=== PATIENT | male | born 1955 | race American Indian/Alaskan Native ===

== ENCOUNTER 2019-01-17 08:53 | Emergency (ER) | payer SELFPAY ==
[2019-01-17] MEDS ORDERED: TORADOL IM ONE (10:05)
[2019-01-17] MEDS ORDERED: SOLU-Medrol IM ONE (10:05)
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
--- NOTE | 2019-01-17 10:54 | XRay Report ---
RIGHT FOOT, 3 views: History: Pain and swelling. Normal bone mineralization. Mild osteoarthritic changes are identified at the first metatarsophalangeal joint. There is no evidence for fracture, bone lesion or erosive joint pathology. Small plantar spur is noted. IMPRESSION: No acute process. Mild osteoarthritic changes. Small plantar spur.
[2019-01-17 12:35] LABS: INR 1.25 (0.87-1.13)
[2019-01-17 12:36] LABS: Partial Thromboplastin Time 33.3 Sec. (24.2-36.6)
[2019-01-17 13:16] LABS: Basophils # (Auto) 0.1 K/mm3 (0.0-0.1); Basophils % (Auto) 0.9 % (0.0-1.8); Eosinophils # (Auto) 0.2 K/mm3 (0.0-0.4); Eosinophils % (Auto) 1.8 % (0.0-4.3); Hematocrit 30.4 % (35.5-45.6); Hemoglobin 9.2 gm/dl (11.8-15.2); Lymphocytes # (Auto) 2.7 K/mm3 (1.2-5.4); Lymphocytes % (Auto) 30.8 % (13.4-35.0); Mean Corpuscular HGB Conc 30 % (32-34); Mean Corpuscular Volume 70 fl (84-94); Monocytes # (Auto) 0.7 K/mm3 (0.0-0.8); Monocytes % (Auto) 8.5 % (0.0-7.3); Platelet Count 442 K/mm3 (140-440); Red Blood Count 4.35 M/mm3 (3.65-5.03)
[2019-01-17 13:19] LABS: Albumin 3.1 g/dL (3.9-5)
[2019-01-17 13:23] LABS: Calcium 5.5 mg/dL (8.4-10.2)
--- NOTE | 2019-01-17 13:28 | XRay Report ---
PA and lateral chest: SOB. The cardiac contour is within normal limits for positioning. The aorta may be slightly tortuous. There is mild vascular congestion and mild blunting of the right costophrenic angle. No nodules or consolidations identified. The pleural appears to be somewhat thickened along the upper right chest wall and to a lesser extent the left upper chest wall. The bony structures are not unremarkable for age. No prior exams for comparison. Impression: The findings raise suspicion of mild congestive changes. The pleural changes are nonspecific and most likely unrelated.
[2019-01-17 13:38] LABS: Chol/HDL Ratio 3.66 %
[2019-01-17 14:06] VITALS: BP 153/113
== END 2019-01-17 14:08 | disposition left against medical advice (07) ==
LOC: ED 08:53
DX: M72.2 Plantar fascial fibromatosis (principal); M77.9 Enthesopathy, unspecified; E83.51 Hypocalcemia; I10 Essential (primary) hypertension; M19.90 Unspecified osteoarthritis, unspecified site; R74.8 Abnormal levels of other serum enzymes; N19 Unspecified kidney failure; X58.XXXA Exposure to other specified factors, initial encounter; Y93.89 Activity, other specified; Y92.89 Other specified places as the place of occurrence of the external cause; Y99.8 Other external cause status
CPT/HCPCS: 36415; 71046; 73630; 80053; 80061; 83880; 84484; 85025; 85610; 85730; 93005; 93010; 96372; 99283; J1885; J2930

== ENCOUNTER 2019-01-21 08:51 | Inpatient (IN) | payer OTHER ==
[2019-01-21] MEDS ORDERED: LASIX IV ONE (10:27)
[2019-01-21] MEDS ORDERED: BABY ASPIRIN PO ONE (10:29)
--- NOTE | 2019-01-21 10:29 | Emergency Department Report ---
ED General Adult HPI - General Chief complaint: Dyspnea/Respdistress Stated complaint: MEDICAL CLEARANCE Time Seen by Provider: 01/21/19 10:20 Source: patient, RN notes reviewed, old records reviewed Mode of arrival: Wheelchair Limitations: No Limitations - History of Present Illness Initial comments: This is a 63-year-old gentleman. The patient is not known to this provider previously. The patient states he does not have a primary care doctor. The patient reportedly has a history of hypertension. 4 days ago, the patient presented to the emergency room with a complaint of bilateral plantar foot pain, and on review of systems, endorsed shortness of breath. He was found to have presumably chronic renal insufficiency, with evidence of congestive heart failure, microcytic anemia, likely anemia of chronic disease, and hypocalcemia. Hospitalization and admission was recommended at that time, however the patient declined and signed out AGAINST MEDICAL ADVICE. The patient now presents with a statements that he is ready to be admitted. He denies headache, neck pain, chest pain. He endorses shortness of breath, lower extremity swelling, a bdominal distention, unintentional weight gain. He has chronic bilateral plantar foot pain. His symptoms have been going on for weeks to months, but pain increases with palpation, range of motion, and it decreases with rest. Shortness of breath decreases with rest, sitting upwards, and increases with laying flat, and physical exertion. The patient denies DVT, pulmonary embolus risk factors. He denies hematemesis and bright red blood per rectum. He endorses lower extremity swelling. -: Gradual, week(s), month(s) Location: left, right, lower extremity Radiation: non-radiation Quality: aching Consistency: other Improves with: other Worsens with: other Associated Symptoms: shortness of breath - Related Data Home Medications Medication Instructions Recorded Confirmed Last Taken AtorvaSTATin [Lipitor] 10 mg PO DAILY 01/21/19 01/21/19 Unknown hydroCHLOROthiazide [HCTZ] 25 mg PO QDAY 01/21/19 01/21/19 Unknown metFORMIN [Glucophage] 500 mg PO QDAY 01/21/19 01/21/19 Unknown Previous Rx's Medication Instructions Recorded Last Taken Type traMADol [Ultram] 50 mg PO Q6HR PRN #7 tablet 01/17/19 Unknown Rx Allergies Allergy/AdvReac Type Severity Reaction Status Date / Time No Known Allergies Allergy Verified 01/21/19 09:02 ED Review of Systems ROS: Stated complaint: MEDICAL CLEARANCE Other details as noted in HPI Constitutional: denies: fever Eyes: denies: eye discharge ENT: congestion Respiratory: shortness of breath Cardiovascular: dyspnea on exertion, edema Gastrointestinal: denies: nausea Genitourinary: denies: hematuria Musculoskeletal: arthralgia, myalgia Skin: denies: lesions Neurological: denies: headache Hematological/Lymphatic: denies: easy bleeding ED Past Medical Hx - Past Medical History Previous Medical History?: Yes Hx Hypertension: Yes - Social History Smoking Status: Never Smoker Substance Use Type: None - Medications Home Medications: Home Medications Medication Instructions Recorded Confirmed Last Taken Type traMADol [Ultram] 50 mg PO Q6HR PRN #7 tablet 01/17/19 01/21/19 Unknown Rx AtorvaSTATin [Lipitor] 10 mg PO DAILY 01/21/19 01/21/19 Unknown History hydroCHLOROthiazide [HCTZ] 25 mg PO QDAY 01/21/19 01/21/19 Unknown History metFORMIN [Glucophage] 500 mg PO QDAY 01/21/19 01/21/19 Unknown History ED Physical Exam - General Limitations: Physical Limitation General appearance: alert, obese - Head Head exam: Present: atraumatic, normocephalic - Eye Eye exam: Present: normal appearance, EOMI. Absent: nystagmus - ENT ENT exam: Present: normal exam, normal orophraynx, mucous membranes moist - Neck Neck exam: Present: normal inspection, full ROM. Absent: tenderness, meningismus - Respiratory Respiratory exam: Present: decreased breath sounds. Absent: respiratory distress, wheezes, stridor - Cardiovascular Cardiovascular Exam: Present: normal rhythm, normal heart sounds, JVD. Absent: bradycardia, systolic murmur, diastolic murmur, rubs, gallop - GI/Abdominal GI/Abdominal exam: Present: soft, distended. Absent: tenderness, guarding, rebound, rigid, pulsatile mass - Rectal Rectal exam: Present: deferred - Extremities Exam Extremities exam: Present: normal inspection, full ROM, pedal edema (3+ edema in the bilateral lower gonzales), other (2+ pulses noted in the bilateral upper, lower extremities. Compartments soft. No long bony tenderness. The pelvis is stable.). Absent: calf tenderness - Back Exam Back exam: Present: normal inspection, full ROM. Absent: tenderness, CVA tenderness (R), CVA tenderness (L), paraspinal tenderness, vertebral tenderness - Neurological Exam Neurological exam: Present: alert, other (Extraocular movements intact. Tongue midline. No facial droop. Facial sensation intact to light touch in the V1, V2, V3 distribution bilaterally. 5 and 5 strength in 4 extremities.. Sensation is intact to light touch in 4 extremities.). Absent: motor sensory deficit - Psychiatric Psychiatric exam: Present: normal mood - Skin Skin exam: Present: warm, dry, intact, normal color. Absent: rash ED Course Vital Signs 01/21/19 01/21/19 01/21/19 09:03 11:06 11:28 Temperature 98.5 F Pulse Rate 101 H Respiratory 22 18 14 Rate Blood Pressure 155/114 Blood Pressure [Left] O2 Sat by Pulse 95 98 98 Oximetry 01/21/19 01/21/19 01/21/19 11:30 11:45 12:01 Temperature Pulse Rate 94 H 93 H Respiratory 12 11 L 20 Rate Blood Pressure 98/64 98/64 217/135 Blood Pressure [Left] O2 Sat by Pulse 99 97 100 Oximetry 01/21/19 01/21/19 01/21/19 12:15 12:30 12:45 Temperature Pulse Rate 97 H 95 H 94 H Respiratory 14 13 12 Rate Blood Pressure 217/135 151/114 151/114 Blood Pressure [Left] O2 Sat by Pulse 99 100 99 Oximetry 01/21/19 01/21/19 01/21/19 13:00 13:15 13:30 Temperature Pulse Rate 93 H 97 H 98 H Respiratory 11 L 13 12 Rate Blood Pressure 150/111 150/111 163/108 Blood Pressure [Left] O2 Sat by Pulse 99 99 99 Oximetry 01/21/19 01/21/19 01/21/19 13:45 14:00 14:11 Temperature Pulse Rate 93 H 99 H Respiratory 14 13 21 Rate Blood Pressure 163/108 166/111 166/111 Blood Pressure [Left] O2 Sat by Pulse 100 99 96 Oximetry 01/21/19 01/21/19 01/21/19 14:21 14:30 14:41 Temperature Pulse Rate 91 H 94 H 92 H Respiratory 11 L 12 11 L Rate Blood Pressure 166/111 168/104 168/104 Blood Pressure [Left] O2 Sat by Pulse 100 100 100 Oximetry 01/21/19 01/21/1901/21/19 14:51 15:00 15:02 Temperature Pulse Rate 88 91 H 88 Respiratory 12 14 18 Rate Blood Pressure 168/104 186/128 Blood Pressure 175/88 [Left] O2 Sat by Pulse 100 99 100 Oximetry 01/21/19 01/21/19 15:05 15:25 Temperature Pulse Rate 88 Respiratory 18 Rate Blood Pressure 186/128 Blood Pressure 175/79 [Left] O2 Sat by Pulse 100 Oximetry - Reevaluation(s) Reevaluation #1: 01/21/19 11:04 When calcium is corrected for hypoalbuminemia, it is found to be 6.6, this is likely secondary to secondary hyperparathyroidism, likely secondary to renal insufficiency. Calcium supplementation has been ordered. We will defer further electrolyte management and inpatient team. Lab Results 01/21/19 01/21/19 01/21/19 Range/Units 10:02 10:02 10:02 WBC 8.4 (4.5-11.0) K/mm3 RBC 4.29 (3.65-5.03) M/mm3 Hgb 9.1 L (11.8-15.2) gm/dl Hct 29.7 L (35.5-45.6) % MCV 69 L (84-94) fl MCH 21 L (28-32) pg MCHC 31 L (32-34) % RDW 16.8 H (13.2-15.2) % Plt Count 470 H (140-440) K/mm3 Lymph % (Auto) 29.0 (13.4-35.0) % [place] % (Auto) 8.0 H (0.0-7.3) % Eos % (Auto) 2.0 (0.0-4.3) % Baso % (Auto) 2.0 H (0.0-1.8) % Lymph # 2.4 (1.2-5.4) K/mm3 [place] # 0.7 (0.0-0.8) K/mm3 Eos # 0.2 (0.0-0.4) K/mm3 Baso # 0.2 H (0.0-0.1) K/mm3 Seg Neutrophils % 59.0 (40.0-70.0) % Seg Neutrophils # 4.9 (1.8-7.7) K/mm3 PT 16.4 H (12.2-14.9) Sec. INR 1.36 H (0.87-1.13) APTT 30.6 (24.2-36.6) Sec. Sodium 137 (137-145) mmol/L Potassium 5.1 H (3.6-5.0) mmol/L Chloride 98.5 (98-107) mmol/L Carbon Dioxide 20 L (22-30) mmol/L Anion Gap 24 mmol/L BUN 68 H (9-20) mg/dL Creatinine 7.6 H (0.8-1.5) mg/dL Estimated GFR 9 ml/min BUN/Creatinine Ratio 9 % Glucose 101 H (75-100) mg/dL Calcium 5.7 L* (8.4-10.2) mg/dL Magnesium 1.80 (1.7-2.3) mg/dL Total Bilirubin 0.30 (0.1-1.2) mg/dL AST 77 H (5-40) units/L ALT 62 H (7-56) units/L Alkaline Phosphatase 101 (35-129) units/L Total Protein 7.6 (6.3-8.2) g/dL Albumin 2.8 L (3.9-5) g/dL Albumin/Globulin Ratio 0.6 % 01/21/19 19:19 ED Medical Decision Making - Lab Data Result diagrams: 01/21/19 10:02 01/21/19 10:02 Vital Signs 01/21/19 09:03 Temperature 98.5 F Pulse Rate 101 H Respiratory 22 Rate Blood Pressure 155/114 O2 Sat by Pulse 95 Oximetry Lab Results 01/21/19 01/21/19 Range/Units 10:02 10:02 WBC 8.4 (4.5-11.0) K/mm3 RBC 4.29 (3.65-5.03) M/mm3 Hgb 9.1 L (11.8-15.2) gm/dl Hct 29.7 L (35.5-45.6) % MCV 69 L (84-94) fl MCH 21 L (28-32) pg MCHC 31 L (32-34) % RDW 16.8 H (13.2-15.2) % Plt Count 470 H (140-440) K/mm3 Lymph % (Auto) 29.0 (13.4-35.0) % [place] % (Auto) 8.0 H (0.0-7.3) % Eos % (Auto) 2.0 (0.0-4.3) % Baso % (Auto) 2.0 H (0.0-1.8) % Lymph # 2.4 (1.2-5.4) K/mm3 [place] # 0.7 (0.0-0.8) K/mm3 Eos # 0.2 (0.0-0.4) K/mm3 Baso # 0.2 H (0.0-0.1) K/mm3 Seg Neutrophils % 59.0 (40.0-70.0) % Seg Neutrophils # 4.9 (1.8-7.7) K/mm3 PT 16.4 H (12.2-14.9) Sec. INR 1.36 H (0.87-1.13) APTT 30.6 (24.2-36.6) Sec. - EKG Data -: EKG Interpreted by Id EKG shows normal: sinus rhythm Rate: normal - EKG Data 01/21/19 10:59 This is a sinus rhythm, 95 bpm, normal axis, QTC prolonged, atrial enlargement, poor R progression, no endorsement of chest pain, this is an abnormal EKG, his EKG is not consistent with ST myocardial infarction. EKG today appears to be grossly unchanged from prior EKG from 01/17/2019, with the exception of resolved left axis deviation. - Radiology Data Radiology results: report reviewed, image reviewed Print Report Referring Physician: COMFORT CORDERO Patient Name: DEVI SEVILLA Date of : 1955 Sex: Male Report Date: 2019-01-21 Report Status: Finalized Findings [facility] [address] [place] [address] XRay Report Signed Patient: DEVI SEVILLA MR#: [id number] : 1955 Acct:[id number] Age/Sex: 63 / M ADM Date: 01/21/19 Loc: ED Attending Dr: Ordering Physician: COMFORT CORDERO MD Date of Service: 01/21/19 Procedure(s): XR chest 1V ap Accession Number(s): [id number] cc: COMFORT CORDERO MD Fluoro Time In Minutes: AP CHEST: HISTORY: Dyspnea Moderate cardiomegaly, moderate pulmonary edema and small bilateral pleural effusions are suspected. The lungs are grossly clear although there is poor visualization of the left lower lobe. No pneumothorax. IMPRESSION: CHF. Transcribed By: TTR Dictated By: BASIM LOVING JR, MD Electronically Authenticated By: BASIM LOVING JR, MD Signed Date/Time: 01/21/191034 DD/ 34 TD/TT: 01/21/19 1035 - Medical Decision Making Differential diagnosis, including not limited to: Pulmonary hypertension, right- sided heart failure, left-sided heart failure, cardiorenal syndrome, obstructive sleep apnea, renal insufficiency Assessment and plan: 63-year-old gentleman who reports she does not have a primary care doctor, who appears to be morbidly obese, most likely has undiagnosed obstructive sleep apnea, undiagnosed pulmonary hypertension, presenting with physical exam findings and laboratory findings suggestive of decompensated cardiorenal syndrome. He denies DVT, pulmonary embolus risk factors, and he is low risk by well's criteria. He does appear to be comfortable on room oxygen. We have recommended admission for diuresis and medical optimization. He is amenable to this plan of care. He reports that he produces urine. He will be given high-dose Lasix. Basic metabolic panel is pending at this time. Elevated troponin from prior visit is reviewed and appreciated, this is likely a type II troponin leak, as he has not endorsed any chest pain, this is likely due to poorly managed renal insufficiency, as well as presumed congestive heart failure. The hospital physician, Dr. Joiner, will admit the patient to the medical service. We have requested a renal consultation, and my nephrology colleague, Dr. Randhawa, has graciously agreed to follow in consultation. Critical Care Time: Yes Critical care time in (mins) excluding proc time.: 35 Critical care attestation.: If time is entered above; I have spent that time in minutes in the direct care of this critically ill patient, excluding procedure time. ED Disposition Clinical Impression: Cardiorenal syndrome with renal failure Disposition: OP ADMIT IP TO THIS HOSP Is pt being admited?: Yes Does the pt Need Aspirin: Yes Condition: Stable
[2019-01-21 10:41] LABS: Basophils # (Auto) 0.2 K/mm3 (0.0-0.1); Eosinophils # (Auto) 0.2 K/mm3 (0.0-0.4); Hematocrit 29.7 % (35.5-45.6); Hemoglobin 9.1 gm/dl (11.8-15.2); Lymphocytes # (Auto) 2.4 K/mm3 (1.2-5.4); Mean Corpuscular HGB Conc 31 % (32-34); Monocytes # (Auto) 0.7 K/mm3 (0.0-0.8); Platelet Count 470 K/mm3 (140-440); Red Blood Count 4.29 M/mm3 (3.65-5.03); Red Cell Distribution Width 16.8 % (13.2-15.2)
--- NOTE | 2019-01-21 10:41 | XRay Report ---
AP CHEST: HISTORY: Dyspnea Moderate cardiomegaly, moderate pulmonary edema and small bilateral pleural effusions are suspected. The lungs are grossly clear although there is poor visualization of the left lower lobe. No pneumothorax. IMPRESSION: CHF.
[2019-01-21 10:46] LABS: Mean Corpuscular Volume 69 fl (84-94)
[2019-01-21 10:52] LABS: INR 1.36 (0.87-1.13); Partial Thromboplastin Time 30.6 Sec. (24.2-36.6)
[2019-01-21 10:59] LABS: Albumin 2.8 g/dL (3.9-5)
[2019-01-21 11:03] LABS: Calcium 5.7 mg/dL (8.4-10.2)
[2019-01-21] MEDS ORDERED: CALCIUM GLUCONATE 1,000 MG in NACL 0.9% 100 ML IV ONE (11:30)
[2019-01-21] MEDS ORDERED: TUMS PO ONE (11:30)
[2019-01-21] MEDS ORDERED: SODIUM CHLORIDE FLUSH SYRINGE 10 ML IV PRN (12:52)
[2019-01-21] MEDS ORDERED: TYLENOL PO PRN (12:52)
[2019-01-21] MEDS ORDERED: ZOFRAN IV PRN (12:52)
--- NOTE | 2019-01-21 12:57 | History and Physical Report ---
History of Present Illness Date of admission: 01/21/19 11:05 Chief complaint: I am swelling up all over History of present illness: 63-year-old man who presents to the hospital with bilateral plantar foot pain. Shortness of breath he's complaining of lower extremity swelling, abdominal dis tention, unintentional weight gain, Past medical history hypertension, chronic kidney disease, CHF, microcytic anemia, hypocalcemia Past surgical history; denies major surgeries Social history never smoker Family history hypertension and kidney disease Medications and Allergies Allergies Allergy/AdvReac Type Severity Reaction Status Date / Time No Known Allergies Allergy Verified 01/21/19 09:02 Home Medications Medication Instructions Recorded Confirmed Last Taken Type traMADol [Ultram 50 MG tab] 50 mg PO Q6HR PRN #7 tablet 01/17/19 01/21/19 Unknown Rx AtorvaSTATin [Lipitor] 10 mg PO DAILY 01/21/19 01/21/19 Unknown History Aspirin [Aspirin BABY CHEW TAB] 81 mg PO QDAY #30 tab.chew 01/28/19 Unknown Rx Calcitriol [Rocaltrol] 1 mcg PO QDAY #30 capsule 01/28/19 Unknown Rx Calcium Carbonate [Tums 500MG CHEW] 1,000 mg PO TID #90 tablet 01/28/19 Unknown Rx Carvedilol [Coreg] 6.25 mg PO BID #60 tablet 01/28/19 Unknown Rx Pantoprazole [Protonix TAB] 40 mg PO QDAY #30 tablet 01/28/19 Unknown Rx glipiZIDE [Glucotrol] 5 mg PO QDAY #30 tablet 02/04/19 Unknown Rx Review of Systems All systems: negative Constitutional: weight gain Ears, nose, mouth and throat: no ear pain Cardiovascular: orthopnea Respiratory: no cough Gastrointestinal: no abdominal pain Genitourinary Male: no dysuria Rectal: no pain Musculoskeletal: no neck stiffness Integumentary: no rash Neurological: no head injury Psychiatric: no anxiety Endocrine: no cold intolerance Hematologic/Lymphatic: no easy bruising Allergic/Immunologic: no urticaria Exam - Constitutional Vitals: Temp Pulse Resp BP Pulse Ox 98.5 F 101 H 22 155/114 95 01/21/19 09:03 01/21/19 09:03 01/21/19 09:03 01/21/19 09:03 01/21/19 09:03 General appearance: Present: no acute distress, well-nourished - EENT Eyes: Present: PERRL ENT: hearing intact, clear oral mucosa - Neck Neck: Present: supple, normal ROM - Respiratory Respiratory effort: normal Respiratory: bilateral: diminished, rales (1) - Cardiovascular Heart Sounds: Present: S1 & S2. Absent: rub, click - Extremities Extremities: pulses symmetrical Extremity abnormal: edema Peripheral Pulses: within normal limits - Abdominal General gastrointestinal: Present: soft, non-tender, non-distended, normal bowel sounds Male genitourinary: Present: normal - Integumentary Integumentary: Present: clear, warm, dry - Musculoskeletal Musculoskeletal: gait normal, strength equal bilaterally - Psychiatric Psychiatric: appropriate mood/affect, intact judgment & insight - Neurologic Neurologic: CNII-XII intact, moves all extremities Results - Labs CBC & Chem 7: 02/02/19 04:51 02/02/19 04:51 Labs: Laboratory Last Values WBC 8.4 K/mm3 (4.5-11.0) 01/21/19 10:02 RBC 4.29 M/mm3 (3.65-5.03) 01/21/19 10:02 Hgb 9.1 gm/dl (11.8-15.2) L 01/21/19 10:02 Hct 29.7 % (35.5-45.6) L 01/21/19 10:02 MCV 69 fl (84-94) L 01/21/19 10:02 MCH 21 pg (28-32) L 01/21/19 10:02 MCHC 31 % (32-34) L 01/21/19 10:02 RDW 16.8 % (13.2-15.2) H 01/21/19 10:02 Plt Count 470 K/mm3 (140-440) H 01/21/19 10:02 Lymph % (Auto) 29.0 % (13.4-35.0) 01/21/19 10:02 [place] % (Auto) 8.0 % (0.0-7.3) H 01/21/19 10:02 Eos % (Auto) 2.0 % (0.0-4.3) 01/21/19 10:02 Baso % (Auto) 2.0 % (0.0-1.8) H 01/21/19 10:02 Lymph # 2.4 K/mm3 (1.2-5.4) 01/21/19 10:02 [place] # 0.7 K/mm3 (0.0-0.8) 01/21/19 10:02 Eos # 0.2 K/mm3 (0.0-0.4) 01/21/19 10:02 Baso # 0.2 K/mm3 (0.0-0.1) H 01/21/19 10:02 Seg Neutrophils % 59.0 % (40.0-70.0) 01/21/19 10:02 Seg Neutrophils # 4.9 K/mm3 (1.8-7.7) 01/21/19 10:02 PT 16.4 Sec. (12.2-14.9) H 01/21/19 10:02 INR 1.36 (0.87-1.13) H 01/21/19 10:02 APTT 30.6 Sec. (24.2-36.6) 01/21/19 10:02 Sodium 137 mmol/L (137-145) 01/21/19 10:02 Potassium 5.1 mmol/L (3.6-5.0) H 01/21/19 10:02 Chloride 98.5 mmol/L (98-107) 01/21/19 10:02 Carbon Dioxide 20 mmol/L (22-30) L 01/21/19 10:02 24 mmol/L 01/21/19 10:02 BUN 68 mg/dL (9-20) H 01/21/19 10:02 7.6 mg/dL (0.8-1.5) H 01/21/19 10:02 Estimated GFR 9 ml/min 01/21/19 10:02 9 % 01/21/19 10:02 Glucose 101 mg/dL (75-100) H 01/21/19 10:02 Calcium 5.7 mg/dL (8.4-10.2) L* 01/21/19 10:02 Magnesium 1.80 mg/dL (1.7-2.3) 01/21/19 10:02 0.30 mg/dL (0.1-1.2) 01/21/19 10:02 AST 77 units/L (5-40) H 01/21/19 10:02 ALT 62 units/L (7-56) H 01/21/19 10:02 101 units/L (35-129) 01/21/19 10:02 0.092 ng/mL (0.00-0.029) H 01/21/19 10:02 7.6 g/dL (6.3-8.2) 01/21/19 10:02 2.8 g/dL (3.9-5) L 01/21/19 10:02 0.6 % 01/21/19 10:02 - Imaging and Cardiology Chest x-ray: image reviewed (CHF) Assessment and Plan Assessment and plan: 63-year-old man who presents with swelling all over and unintentional weight gain CHF -likely cardiorenal syndrome -strict I&O, daily weights, IV diuretics, optimize meds, cardiology consult, obtain echo htn cont BP meds hld cont statin LORRI/hypocalcemia mgt per nephrology, replace ca, hold metformin type 2 Dm ssi dvt ppx- heparin
[2019-01-21] MEDS ORDERED: D50W (25GM) Syringe IV PRN (13:10)
[2019-01-21 13:12] LABS: Bacteria,Urine 1+ /HPF (Negative); Bilirubin,Urine NEG (Negative); Blood,Urine SM (Negative); Color,Urine Yellow (Yellow); Mucus,Urine FEW /HPF; Urobilinogen,Urine < 2.0 mg/dL (<2.0)
[2019-01-21 13:13] LABS: Protein,Urine >500 mg/dL (Negative)
[2019-01-21 13:17] LABS: Creatinine,Urine 76.7 mg/dL (0.1-20.0)
[2019-01-21] MEDS: LASIX IV SCH (17:23)
[2019-01-21] MEDS: HumaLOG SUB-Q SCH ×2 (17:27→23:00)
--- NOTE | 2019-01-21 19:33 | Consultation ---
History of Present Illness - Reason for Consult chronic renal failure - History of Present Illness 63-year-old gentleman with history of hypertension presenting with complaints of shortness of breath reports is usually used to live in [place] moved to [place] denies benign we will previous chronic kidney disease denies any family history of chronic kidney disease denies any nausea vomiting abdominal pain denies any sick contacts does have some orthopnea has some lower extremity edema. Was seen in the emergency room a few days ago and if that is medical and left against medical advice Medications and Allergies Allergies Allergy/AdvReac Type Severity Reaction Status Date / Time No Known Allergies Allergy Verified 01/21/19 09:02 Home Medications Medication Instructions Recorded Confirmed Last Taken Type traMADol [Ultram] 50 mg PO Q6HR PRN #7 tablet 01/17/19 01/21/19 Unknown Rx AtorvaSTATin [Lipitor] 10 mg PO DAILY 01/21/19 01/21/19 Unknown History hydroCHLOROthiazide [HCTZ] 25 mg PO QDAY 01/21/19 01/21/19 Unknown History metFORMIN [Glucophage] 500 mg PO QDAY 01/21/19 01/21/19 Unknown History Active Meds: Active Medications Acetaminophen (Tylenol) 650 mg PO Q4H PRN PRN Reason: Pain MILD(1-3)/Fever >100.5/MANE Atorvastatin Calcium (Lipitor) 10 mg PO DAILY [facility] Dextrose (D50w (25gm) Syringe) 50 ml IV PRN PRN PRN Reason: Hypoglycemia Furosemide (Lasix) 80 mg IV BID@0600,1800 [facility] Last Admin: 01/21/19 17:23 Dose: 80 mg Documented by: Hydralazine HCl (Apresoline) 10 mg IV Q4HR PRN PRN Reason: BP >160/100 Insulin Human Lispro (Humalog) 0 unit SUB-Q ACHS [facility]; Protocol Last Admin: 01/21/19 17:27 Dose: Not Given Documented by: Ondansetron HCl (Zofran) 4 mg IV Q8H PRN PRN Reason: Nausea And Vomiting Sodium Chloride (Sodium Chloride Flush Syringe 10 Ml) 10 ml IV BID [facility] Sodium Chloride (Sodium Chloride Flush Syringe 10 Ml) 10 ml IV PRN PRN PRN Reason: LINE FLUSH Tramadol HCl (Ultram) 50 mg PO Q6HR PRN PRN Reason: Pain Review of Systems Constitutional: weight gain Ears, nose, mouth and throat: no deferred, no ear pain Cardiovascular: orthopnea, dyspnea on exertion, paroxysmal nocturnal dyspnea, no chest pain Respiratory: no cough, no cough with sputum Gastrointestinal: no abdominal pain, no nausea, no vomiting, no hematochezia, no loss of appetite Genitourinary Male: no dysuria, no hematuria Rectal: no pain, no incontinence Psychiatric: no anxiety, no memory loss Endocrine: no cold intolerance, no heat intolerance Exam - Vital Signs Vital signs: Vital Signs Temp Pulse Resp BP Pulse Ox 98.5 F 101 H 22 155/114 95 01/21/19 09:03 01/21/19 09:03 01/21/19 09:03 01/21/19 09:03 01/21/19 09:03 - General Appearance General appearance: well-developed, well-nourished EENT: ATNC, PERRL, mucous membranes moist Neck: Present: neck supple Respiratory: Ronchi, Decreased Breath Sounds Heart: regular, S1S2 Gastrointestinal: Present: normal, normoactive bowel sounds Integumentary: no rash Neurologic: alert and oriented x3, CN 3-12 intact Musculoskeletal: Absent: deferred Psychiatric: mood/affect appropriate Results - Lab Results 01/21/19 10:02 01/21/19 10:02 Most recent lab results Calcium 5.7 mg/dL (8.4-10.2) L* 01/21/19 10:02 Magnesium 1.80 mg/dL (1.7-2.3) 01/21/19 10:02 76.7 mg/dL (0.1-20.0) H 01/21/19 13:00 81 mmol/L 01/21/19 13:00 - Image Kidney/bladder ultrasound: other (I reviewed chest x-ray with bilateral diffuse opacities, stable medical condition) Assessment and Plan - Patient Problems (1) Acute on chronic renal failure Current Visit: Yes Status: Acute Plan to address problem: Acute on chronic renal failure versus progressive chronic kidney disease We'll obtain renal ultrasound Has volume overload we'll initiate diuretics We'll obtain serologies Strict input and output Hypocalcemia significant hyperparathyroidism: Consistent with chronic kidney disease Obtain urine studies Will attempt to diurese his discussed the patient will likely need initiation of dialysis on renal function improved (2) Hypertension Current Visit: No Status: Acute Plan to address problem: Hypertension uncontrolled we'll initiate antihypertensive medications (3) Hypocalcemia Current Visit: No Status: Acute Plan to address problem: Hypocalcemia in the setting of probable chronic kidney disease Check vitamin D levels initiate calcitriol (4) Hyperparathyroidism due to renal insufficiency Current Visit: Yes Status: Acute Plan to address problem: Markedly elevated PTH consistent with chronic kidney disease We'll initiate calcitriol Hypocalcemia noted Check vitamin D
[2019-01-21] MEDS: ROCALTROL PO SCH (21:46)
[2019-01-21] MEDS: SODIUM BICARBONATE PO SCH (21:46)
[2019-01-21] MEDS: SODIUM CHLORIDE FLUSH SYRINGE 10 ML IV SCH (21:47)
[2019-01-21] MEDS ORDERED: APRESOLINE IV ONE (22:59)
[2019-01-22] MEDS: LASIX IV SCH ×2 (05:19→18:49)
--- NOTE | 2019-01-22 07:00 | Vascular Lab Report ---
PROCEDURE: VL VENOUS DUPLEX LE BILAT TECHNIQUE: Routine Doppler compression imaging was obtained of the deep venous systems of both lower extremities. Augmentation maneuvers and waveforms were recorded. HISTORY: LE edema COMPARISONS: None FINDINGS: All of the veins compress normally and both lower extremities. The waveforms appear normal. IMPRESSION: Normal exam. No evidence of deep venous thrombosis in either lower extremity.. This document is electronically signed by Alexy Lee MD., January 22 2019 06:58:37 AM ET
[2019-01-22] MEDS: HumaLOG SUB-Q SCH ×4 (07:30→21:45)
--- NOTE | 2019-01-22 09:17 | XRay Report ---
AP CHEST: HISTORY: Followup pulmonary edema Pulmonary edema has decreased by 50% since yesterday's exam at 1028 hrs. Mild improvement in cardiomegaly is also demonstrated. Small pleural effusions have decreased and possibly resolved. IMPRESSION: Significant improvement in CHF.
[2019-01-22] MEDS: ROCALTROL PO SCH (09:44)
[2019-01-22] MEDS: SODIUM CHLORIDE FLUSH SYRINGE 10 ML IV SCH ×2 (09:44→21:47)
[2019-01-22] MEDS: SODIUM BICARBONATE PO SCH ×2 (09:44→21:46)
[2019-01-22] MEDS: ULTRAM PO PRN (09:45)
[2019-01-22] MEDS: APRESOLINE IV PRN ×2 (09:47→16:04)
[2019-01-22 09:54] LABS: Calcium 6.1 mg/dL (8.4-10.2)
--- NOTE | 2019-01-22 10:43 | Consultation ---
History of Present Illness Consult date: 01/22/19 Consult reason: congestive heart failure History of present illness: Mr Plunkett is a 63 year old male with a history of hypertension, noncompliant with medications and outpatient follow-up. It will be noted patient was seen in the emergency department 4-5 days ago, found to have a creatinine of 7.4, a calcium of 5.5 and a BNP finding of 32,000. Patient was recommended for hospital admission but he declined and left AMA. He now returns with shortness of breath, admitted with renal failure, volume overload and hypocalcemia. Chest x-ray shows cardiomegaly with pulmonary edema. Cardiology consultation has been requested for CHF evaluation. Medications and Allergies Allergies Allergy/AdvReac Type Severity Reaction Status Date / Time No Known Allergies Allergy Verified 01/21/19 09:02 Home Medications Medication Instructions Recorded Confirmed Last Taken Type traMADol [Ultram] 50 mg PO Q6HR PRN #7 tablet 01/17/19 01/21/19 Unknown Rx AtorvaSTATin [Lipitor] 10 mg PO DAILY 01/21/19 01/21/19 Unknown History hydroCHLOROthiazide [HCTZ] 25 mg PO QDAY 01/21/19 01/21/19 Unknown History metFORMIN [Glucophage] 500 mg PO QDAY 01/21/19 01/21/19 Unknown History Active Meds: Active Medications Acetaminophen (Tylenol) 650 mg PO Q4H PRN PRN Reason: Pain MILD(1-3)/Fever >100.5/MANE Atorvastatin Calcium (Lipitor) 10 mg PO DAILY [facility] Last Admin: 01/22/19 09:44 Dose: 10 mg Documented by: Calcitriol (Rocaltrol) 0.5 mcg PO QDAY [facility] Last Admin: 01/22/19 09:44 Dose: 0.5 mcg Documented by: Dextrose (D50w (25gm) Syringe) 50 ml IV PRN PRN PRN Reason: Hypoglycemia Furosemide (Lasix) 80 mg IV BID@0600,1800 [facility] Last Admin: 01/22/19 05:19 Dose: 80 mg Documented by: Hydralazine HCl (Apresoline) 10 mg IV Q4HR PRN PRN Reason: BP >160/100 Last Admin: 01/22/19 09:47 Dose: 10 mg Documented by: Insulin Human Lispro (Humalog) 0 unit SUB-Q [facility]; Protocol Last Admin: 01/22/19 07:30 Dose: Not Given Documented by: Ondansetron HCl (Zofran) 4 mg IV Q8H PRN PRN Reason: Nausea And Vomiting Sodium Bicarbonate (Sodium Bicarbonate) 1,300 mg PO BID [facility] Last Admin: 01/22/19 09:44 Dose: 1,300 mg Documented by: Sodium Chloride (Sodium Chloride Flush Syringe 10 Ml) 10 ml IV BID [facility] Last Admin: 01/22/19 09:44 Dose: 10 ml Documented by: Sodium Chloride (Sodium Chloride Flush Syringe 10 Ml) 10 ml IV PRN PRN PRN Reason: LINE FLUSH Tramadol HCl (Ultram) 50 mg PO Q6HR PRN PRN Reason: Pain Last Admin: 01/22/19 09:45 Dose: 50 mg Documented by: Physical Examination Vital Signs Temp Pulse Resp BP Pulse Ox 98.5 F 101 H 22 155/114 95 01/21/19 09:03 01/21/19 09:03 01/21/19 09:03 01/21/19 09:03 01/21/19 09:03 General appearance: no acute distress HEENT: Positive: PERRL Cardiac: Positive: Reg Rate and Rhythm Lungs: Positive: Decreased Breath Sounds Neuro: Positive: Grossly Intact Extremities: Present: edema Results 01/21/19 10:02 01/22/19 09:19 Cardiac Enzymes 01/21/19 Range/Units 10:02 AST 77 H (5-40) units/L Coagulation 01/21/19 Range/Units 10:02 PT 16.4 H (12.2-14.9) Sec. INR 1.36 H (0.87-1.13) APTT 30.6 (24.2-36.6) Sec. CBC 01/21/19 Range/Units 10:02 WBC 8.4 (4.5-11.0) K/mm3 RBC 4.29 (3.65-5.03) M/mm3 Hgb 9.1 L (11.8-15.2) gm/dl Hct 29.7 L (35.5-45.6) % Plt Count 470 H (140-440) K/mm3 Lymph # 2.4 (1.2-5.4) K/mm3 [place] # 0.7 (0.0-0.8) K/mm3 Eos # 0.2 (0.0-0.4) K/mm3 Baso # 0.2 H (0.0-0.1) K/mm3 Comprehensive Metabolic Panel 01/21/19 01/22/19 Range/Units 10:02 09:19 Sodium 137 139 (137-145) mmol/L Potassium 5.1 H 4.9 (3.6-5.0) mmol/L Chloride 98.5 98.4 (98-107) mmol/L Carbon Dioxide 20 L 23 (22-30) mmol/L BUN 68 H 72 H (9-20) mg/dL Creatinine 7.6 H 7.6 H (0.8-1.5) mg/dL Glucose 101 H 148 H (75-100) mg/dL Calcium 5.7 L* 6.1 L (8.4-10.2) mg/dL AST 77 H (5-40) units/L ALT 62 H (7-56) units/L Alkaline Phosphatase 101 (35-129) units/L Total Protein 7.6 (6.3-8.2) g/dL Albumin 2.8 L (3.9-5) g/dL Assessment and Plan Chronic renal failure Hypertension Pulmonary edema Volume overload Hypocalcemia
--- NOTE | 2019-01-22 10:47 | Progress Note ---
Assessment and Plan - Patient Problems (1) Acute on chronic renal failure Current Visit: Yes Status: Acute Plan to address problem: Acute on chronic renal failure more likely progressive chronic kidney disease We'll obtain renal ultrasound Has volume overload continue diuretics Pending serologies Strict input and output Hypocalcemia significant hyperparathyroidism: Consistent with chronic kidney disease I reviewed urinalysis with proteinuria. Discussed options for renal replacement therapy including hemodialysis and peritoneal dialysis and renal transplant Will discuss with vascular surgery for access placement. (2) Hypertension Current Visit: No Status: Acute Qualifiers: Hypertension type: essential hypertension Qualified Code(s): I10 - Essential (primary) hypertension Plan to address problem: Hypertension uncontrolled we'll initiate antihypertensive medications Labetalol 20mg IV prn systolic >180 (3) Hypocalcemia Current Visit: No Status: Resolved Plan to address problem: Hypocalcemia in the setting of probable chronic kidney disease Check vitamin D levels initiate calcitriol (4) Hyperparathyroidism due to renal insufficiency Current Visit: Yes Status: Acute Plan to address problem: Markedly elevated PTH consistent with chronic kidney disease contiue calcitriol 0.5mcg daily. Hypocalcemia noted Check vitamin D level pending. Subjective Interval history: 63-year-old gentleman with history of hypertension presenting with complaints of shortness of breath reports is usually used to live in [place] moved to [place] denies benign we will previous chronic kidney disease denies any family history of chronic kidney disease denies any nausea vomiting abdominal pain Patient seen today daughter at the bedside, discussed renal function is not improved and need for additional dialysis I discussed in details different options for renal replacement therapy including hemodialysis peritoneal dialysis as well as renal transplant Explained given markedly reduced kidney function which appears to be chronic would need to proceed with hemodialysis inpatient We'll consult vascular surgery for placement of PermCath Still has some shortness of breath, complains of numbness in both lower extremities Objective - Vital Signs Vital signs: Vital Signs - 12hr 01/21/19 01/22/19 01/22/19 23:42 03:58 07:48 Temperature 98.0 F 98.0 F 98.3 F Pulse Rate 90 92 H 96 H Respiratory 20 20 18 Rate Blood Pressure 131/82 128/83 163/114 O2 Sat by Pulse 97 97 96 Oximetry 01/22/19 01/22/19 09:45 09:47 Temperature Pulse Rate 98 H Respiratory 20 Rate Blood Pressure 163/114 O2 Sat by Pulse Oximetry - General Appearance General appearance: well-developed, well-nourished EENT: ATNC, PERRL, mucous membranes moist Neck: no JVD Respiratory: Present: Clear to Ascultation Cardiology: regular, S1S2 Gastrointestinal: normal, normoactive bowel sounds Integumentary: no rash Neurologic: no focal deficit, alert and oriented x3, CN 3-12 intact Psychiatric: mood/affect appropriate - Lab 01/21/19 10:02 01/22/19 09:19 Most recent lab results Calcium 6.1 mg/dL (8.4-10.2) L 01/22/19 09:19 Magnesium 1.80 mg/dL (1.7-2.3) 01/21/19 10:02 76.7 mg/dL (0.1-20.0) H 01/21/19 13:00 81 mmol/L 01/21/19 13:00 Medications & Allergies - Medications Allergies/Adverse Reactions: Allergies No Known Allergies Allergy (Verified 01/21/19 09:02) Home Medications: Home Medications Medication Instructions Recorded Confirmed Last Taken Type traMADol [Ultram] 50 mg PO Q6HR PRN #7 tablet 01/17/19 01/21/19 Unknown Rx AtorvaSTATin [Lipitor] 10 mg PO DAILY 01/21/19 01/21/19 Unknown History hydroCHLOROthiazide [HCTZ] 25 mg PO QDAY 01/21/19 01/21/19 Unknown History metFORMIN [Glucophage] 500 mg PO QDAY 01/21/19 01/21/19 Unknown History Active Medications: Generic Name Dose Route Start Last Admin Trade Name Freq PRN Reason Stop Dose Admin Acetaminophen 650 mg 01/21/19 12:52 Tylenol PO Q4H PRN Pain MILD(1-3)/Fever >100.5/MANE Atorvastatin Calcium 10 mg 01/22/19 10:00 01/22/19 09:44 Lipitor PO 10 mg DAILY [facility] Administration Calcitriol 0.5 mcg 01/21/19 20:00 01/22/19 09:44 Rocaltrol PO 0.5 mcg QDAY [facility] Administration Dextrose 50 ml 01/21/19 13:10 D50w (25gm) Syringe IV PRN PRN Hypoglycemia Furosemide 80 mg 01/21/19 18:00 01/22/19 05:19 Lasix IV 80 mg BID@0600,1800 [facility] Administration Hydralazine HCl 10 mg 01/21/19 13:10 01/22/19 09:47 Apresoline IV 10 mg Q4HR PRN Administration BP >160/100 Insulin Human Lispro 0 unit 01/21/19 16:30 01/22/19 07:30 Humalog SUB-Q Not Given ACHS [facility] Protocol Ondansetron HCl 4 mg 01/21/19 12:52 Zofran IV Q8H PRN Nausea And Vomiting Sodium Bicarbonate 1,300 mg 01/21/19 22:00 01/22/19 09:44 Sodium Bicarbonate PO 1,300 mg BID [facility] Administration Sodium Chloride 10 ml 01/21/19 22:00 01/22/19 09:44 Sodium Chloride Flush Syringe 10 Ml IV 10 ml BID [facility] Administration Sodium Chloride 10 ml 01/21/19 12:52 Sodium Chloride Flush Syringe 10 Ml IV PRN PRN LINE FLUSH Tramadol HCl 50 mg 01/21/19 12:52 01/22/19 09:45 Ultram PO 50 mg Q6HR PRN Administration Pain
--- NOTE | 2019-01-22 11:38 | Ultrasound Report ---
PROCEDURE: US RENAL BILAT TECHNIQUE: Renal ultrasound HISTORY: OLRRI COMPARISON: None FINDINGS: The right kidney measures 10.3 x 5.8 x 5.0 cm. The left kidney measures 10.0 x 5.7 x 5.7 cm. There is no hydronephrosis. There are 2 small left renal cysts. Cyst in the upper pole measures 2.5 x 2.1 x 2 .1 cm. Lower pole cyst measures 2.2 x 1.4 x 2.0 cm. IMPRESSION: 2 small left renal cysts. No other significant finding. This document is electronically signed by Peyton Caban MD., January 22 2019 11:36:33 AM ET
--- NOTE | 2019-01-22 13:38 | Progress Note ---
Assessment and Plan /CHFrEF with acute exacerbation - 2d echo showed Ef ~15% -likely cardiorenal syndrome -strict I&O, daily weights, IV diuretics, optimize meds, cardiology consult, obtain echo /Hypertension, cont BP meds and adjust as needed - Labetalol 20mg IV prn systolic >180 /Hyperlipidemia, cont statin /LORRI with possible progression to end-stage renal disease mgt per nephrology, hold metformin Planned for renal replacement therapy, and we'll follow nephrology recommendation /Diabetes mellitus type 2 Continue SSI /hypocalcemia, Hypocalcemia in the setting of probable chronic kidney disease Check vitamin D levels initiate calcitriol /Hyperparathyroidism due to renal insufficiency Markedly elevated PTH consistent with chronic kidney disease contiue calcitriol 0.5mcg daily. Check vitamin D level pending. /dvt ppx- heparin Brief history: 63-year-old man admitted with shortness of breath and lower extremity edema. He presented to the emergency room last week with similar symptoms, but refused to stay in hospital and discharged himself AGAINST MEDICAL ADVICE. On this presentation, his symptoms worsened, chest x-ray in the emergency room revealed severe pulmonary edema with near whiteout of bilateral lung boudreaux,which is worse than previous CXR. In addition, there is marked cardiomegaly. In the ER there was severe renal failure with a creatinine of 7.6. The patient denies any history of cardiac or renal disease. admitted for further evaluation and management. Hospitalist physical: GENERAL: well-developed and well-nourished AAM lying on bed appeared to be in no discomfort. HEENT: Normocephalic. Atraumatic. No conjunctival congestion or icterus. Patient has moist mucous membranes. NECK: Supple. Trachea midline. CHEST/LUNGS: Clear to auscultated bilaterally, breathing nonlabored. No wheezes crackles or rhonchi. HEART/CARDIOVASCULAR: Regular in rate and rhythm. S1 and S2 positive. ABDOMEN: Abdomen is soft, nontender. Patient has normal bowel sounds. SKIN: There is no rash. Warm and dry. NEURO: No focal motor deficit. Follows command. MUSCULOSKELETAL: No joint effusion or tenderness. EXTRIMITY: No edema, no cyanosis or clubbing. PSYCH: Cooperative. Subjective Date of service: 01/22/19 Interval history: Patient seen and examined. Medical records and medication list reviewed. No acute event overnight noted by the RN. Patient denies any chest pain but complains of difficulty breathing on minimal exertion. Patient is tolerating diet. Plan to start on hemodialysis, patient aware of that Discussed plan of care at bedside with patient. Objective - Constitutional Vitals: Vital Signs - 12hr 01/22/19 01/22/19 01/22/19 03:58 07:48 08:00 Temperature 98.0 F 98.3 F Pulse Rate 92 H 96 H Pulse Rate [ 93 H From Monitor] Respiratory 20 18 20 Rate Respiratory 20 Rate [Back] Blood Pressure 128/83 163/114 O2 Sat by Pulse 97 96 96 Oximetry 01/22/19 01/22/19 01/22/19 09:45 09:47 12:00 Temperature Pulse Rate 98 H 98 H Pulse Rate [ From Monitor] Respiratory 20 Rate Respiratory Rate [Back] Blood Pressure 163/114 O2 Sat by Pulse Oximetry - Labs CBC & Chem 7: 01/23/19 04:15 01/24/19 04:26 Labs: Abnormal lab results 01/21/19 01/21/19 01/21/19 Range/Units 10:02 17:24 21:02 BUN (9-20) mg/dL Creatinine (0.8-1.5) mg/dL Glucose (75-100) mg/dL POC Glucose 137 H 141 H (70-105) Calcium (8.4-10.2) mg/dL PTH Intact 536.1 H (15-65) pg/mL 01/22/19 01/22/19 Range/Units 09:19 12:03 BUN 72 H (9-20) mg/dL Creatinine 7.6 H (0.8-1.5) mg/dL Glucose 148 H (75-100) mg/dL POC Glucose 106 H (70-105) Calcium 6.1 L (8.4-10.2) mg/dL PTH Intact (15-65) pg/mL
--- NOTE | 2019-01-22 17:16 | Consultation ---
History of Present Illness - Reason for Consult Consult date: 01/22/19 Evaluation for temporary Dialysis access catheter - History of Present Illness This pt is a 63yo AAM that was admitted 01/21/19 with bilat lower ext swelling, and suspected CHF. He recently presented to the ER with similar complaints, but left AMA when admission was recommended. The pt has since returned, agreed to be admitted, and subsequently evaluated by nephrology. HD is recommended. A vascular surgery consult is requested to evaluate for temporary HD catheter placement. Past History Past Medical History: hypertension Past Surgical History: No surgical history (non-listed) Social history: other (recently moved from [facility]). denies: smoking Family history: no significant family history (none listed) Medications and Allergies Allergies Allergy/AdvReac Type Severity Reaction Status Date / Time No Known Allergies Allergy Verified 01/21/19 09:02 Home Medications Medication Instructions Recorded Confirmed Last Taken Type traMADol [Ultram] 50 mg PO Q6HR PRN #7 tablet 01/17/19 01/21/19 Unknown Rx AtorvaSTATin [Lipitor] 10 mg PO DAILY 01/21/19 01/21/19 Unknown History hydroCHLOROthiazide [HCTZ] 25 mg PO QDAY 01/21/19 01/21/19 Unknown History metFORMIN [Glucophage] 500 mg PO QDAY 01/21/19 01/21/19 Unknown History Active Meds: Active Medications Acetaminophen (Tylenol) 650 mg PO Q4H PRN PRN Reason: Pain MILD(1-3)/Fever >100.5/MANE Atorvastatin Calcium (Lipitor) 10 mg PO DAILY [facility] Last Admin: 01/22/19 09:44 Dose: 10 mg Documented by: Calcitriol (Rocaltrol) 0.5 mcg PO QDAY [facility] Last Admin: 01/22/19 09:44 Dose: 0.5 mcg Documented by: Dextrose (D50w (25gm) Syringe) 50 ml IV PRN PRN PRN Reason: Hypoglycemia Furosemide (Lasix) 80 mg IV BID@0600,1800 [facility] Last Admin: 01/22/19 05:19 Dose: 80 mg Documented by: Hydralazine HCl (Apresoline) 10 mg IV Q4HR PRN PRN Reason: BP >160/100 Last Admin: 01/22/19 16:04 Dose: 10 mg Documented by: Insulin Human Lispro (Humalog) 0 unit SUB-Q ACHS [facility]; Protocol Last Admin: 01/22/19 16:04 Dose: Not Given Documented by: Ondansetron HCl (Zofran) 4 mg IV Q8H PRN PRN Reason: Nausea And Vomiting Sodium Bicarbonate (Sodium Bicarbonate) 1,300 mg PO BID [facility] Last Admin: 01/22/19 09:44 Dose: 1,300 mg Documented by: Sodium Chloride (Sodium Chloride Flush Syringe 10 Ml) 10 ml IV BID [facility] Last Admin: 01/22/19 09:44 Dose: 10 ml Documented by: Sodium Chloride (Sodium Chloride Flush Syringe 10 Ml) 10 ml IV PRN PRN PRN Reason: LINE FLUSH Tramadol HCl (Ultram) 50 mg PO Q6HR PRN PRN Reason: Pain Last Admin: 01/22/19 09:45 Dose: 50 mg Documented by: Review of Systems All systems: negative Exam - Constitutional Vitals: Temp Pulse Resp BP Pulse Ox 98.3 F 102 H 20 178/120 96 01/22/19 07:48 01/22/19 16:04 01/22/19 09:45 01/22/19 16:04 01/22/19 08:00 General appearance: Present: no acute distress, obese - EENT Eyes: Present: EOM intact ENT: hearing intact - Neck Neck: Present: supple - Respiratory Respiratory effort: normal - Extremities Extremities: no ischemia - Psychiatric Psychiatric: appropriate mood/affect, intact judgment & insight, cooperative - Neurologic Neurologic: no focal deficits (he does complain of LLE numbness (present prior to admission)) Results - Labs CBC & Chem 7: 01/21/19 10:02 01/22/19 09:19 Labs: Abnormal lab results 01/21/19 01/21/19 01/22/19 Range/Units 17:24 21:02 09:19 BUN 72 H (9-20) mg/dL Creatinine 7.6 H (0.8-1.5) mg/dL Glucose 148 H (75-100) mg/dL POC Glucose 137 H 141 H (70-105) Calcium 6.1 L (8.4-10.2) mg/dL 01/22/19 Range/Units 12:03 BUN (9-20) mg/dL Creatinine (0.8-1.5) mg/dL Glucose (75-100) mg/dL POC Glucose 106 H (70-105) Calcium (8.4-10.2) mg/dL Assessment and Plan This pt was admitted with suspected CHF and dx with acute on CKD. HD has been recommended by nephrology. A vascular surgery consult is requested to evaluate for PC placement. The R,B, and alternatives were discussed in great detail. The pt states understanding and agrees to proceed. This will be scheduled for the laboratory associate utilizing fluoroscopic and u/s guidance. - Patient Problems (1) Acute on chronic renal failure Current Visit: Yes Status: Acute (2) Hypertension Current Visit: No Status: Acute Qualifiers: Hypertension type: essential hypertension Qualified Code(s): I10 - Essential (primary) hypertension (3) Medical non-compliance Current Visit: Yes Status: Acute
[2019-01-22 17:28] LABS: Creatinine,Urine 48.5 mg/dL (0.1-20.0); Microalbumin/Creatinine Ratio 1204.1 ug/mg
[2019-01-23 05:13] LABS: Hemoglobin 8.9 gm/dl (11.8-15.2); Mean Corpuscular HGB Conc 31 % (32-34); Platelet Count 462 K/mm3 (140-440); Red Blood Count 4.29 M/mm3 (3.65-5.03); Red Cell Distribution Width 16.3 % (13.2-15.2)
[2019-01-23 05:16] LABS: Mean Corpuscular Volume 68 fl (84-94)
[2019-01-23] MEDS: LASIX IV SCH ×2 (05:39→17:05)
[2019-01-23 06:00] LABS: Hypochromasia 2+; Total Cells Counted 100
[2019-01-23] MEDS: HumaLOG SUB-Q SCH ×4 (08:19→22:40)
[2019-01-23] MEDS: SODIUM BICARBONATE PO SCH ×2 (10:02→22:39)
[2019-01-23] MEDS: SODIUM CHLORIDE FLUSH SYRINGE 10 ML IV SCH ×2 (10:02→22:41)
[2019-01-23] MEDS: ROCALTROL PO SCH (10:02)
--- NOTE | 2019-01-23 10:18 | Progress Note ---
<JEFFREY GARZA - Last Filed: 01/23/19 10:16> Assessment and Plan Chronic renal failure Hypertension Pulmonary edema Hypocalcemia Recommendations: Defer to nephrology for diuretic management in the setting of acute pulmonary edema and severe renal failure. Echocardiogram for left ventricular function assessment. Subjective Date of service: 01/23/19 Interval history: Patient has no cardiac complaints. No reported events on telemetry monitoring. Objective Vital Signs Temp Pulse Resp BP BP Pulse Ox 01/23/19 08:29 98.3 F 107 H 20 167/103 93 01/23/19 07:16 98 F 82 22 135/77 92 01/23/19 03:22 98.3 F 102 H 18 156/111 94 01/22/19 23:25 98.3 F 97 H 18 134/85 91 01/22/19 20:09 98 H 01/22/19 19:27 98.4 F 99 H 18 138/84 95 01/22/19 18:40 98 H 18 153/108 96 01/22/19 16:04 102 H 178/120 01/22/19 12:00 98 H 01/22/19 11:57 98.4 F 95 H 18 150/111 97 - Physical Examination General: No Apparent Distress HEENT: Positive: PERRL Neck: Positive: neck supple Cardiac: Positive: Reg Rate and Rhythm Lungs: Positive: Decreased Breath Sounds Neuro: Positive: Grossly Intact Extremities: Present: edema - Labs and Meds CBC 01/23/19 Range/Units 04:15 WBC 9.1 (4.5-11.0) K/mm3 RBC 4.29 (3.65-5.03) M/mm3 Hgb 8.9 L (11.8-15.2) gm/dl Hct 29.0 L (35.5-45.6) % Plt Count 462 H (140-440) K/mm3 Comprehensive Metabolic Panel 01/23/19 Range/Units 04:15 Sodium 141 (137-145) mmol/L Potassium 4.1 (3.6-5.0) mmol/L Chloride 98.1 (98-107) mmol/L Carbon Dioxide 24 (22-30) mmol/L BUN 73 H (9-20) mg/dL Creatinine 7.6 H (0.8-1.5) mg/dL Glucose 105 H (75-100) mg/dL Calcium 6.0 L (8.4-10.2) mg/dL <COMFORT RUIZ - Last Filed: 01/23/19 13:12> Assessment and Plan I've seen and evaluated the patient and agree with the assessment and plan. Patient is presenting with chronic renal failure hypertension, and pulmonary edema. Await echocardiogram for evaluation of left ventricular function. Objective Vital Signs Temp Pulse Resp BP BP Pulse Ox 01/23/19 08:29 98.3 F 107 H 20 167/103 93 01/23/19 07:16 98 F 82 22 135/77 92 01/23/19 07:09 96 H 01/23/19 03:22 98.3 F 102 H 18 156/111 94 01/22/19 23:25 98.3 F 97 H 18 134/85 91 01/22/19 20:09 98 H 01/22/19 19:27 98.4 F 99 H 18 138/84 95 01/22/19 18:40 98 H 18 153/108 96 01/22/19 16:04 102 H 178/120 - Labs and Meds CBC 01/23/19 Range/Units 04:15 WBC 9.1 (4.5-11.0) K/mm3 RBC 4.29 (3.65-5.03) M/mm3 Hgb 8.9 L (11.8-15.2) gm/dl Hct 29.0 L (35.5-45.6) % Plt Count 462 H (140-440) K/mm3 Comprehensive Metabolic Panel 01/23/19 Range/Units 04:15 Sodium 141 (137-145) mmol/L Potassium 4.1 (3.6-5.0) mmol/L Chloride 98.1 (98-107) mmol/L Carbon Dioxide 24 (22-30) mmol/L BUN 73 H (9-20) mg/dL Creatinine 7.6 H (0.8-1.5) mg/dL Glucose 105 H (75-100) mg/dL Calcium 6.0 L (8.4-10.2) mg/dL
--- NOTE | 2019-01-23 10:41 | Progress Note ---
Assessment and Plan - Patient Problems (1) Acute on chronic renal failure Current Visit: Yes Status: Acute Plan to address problem: Acute on chronic renal failure more likely progressive chronic kidney disease Has volume overload continue diuretics Pending serologies Strict input and output Hypocalcemia significant hyperparathyroidism: Consistent with chronic kidney disease I reviewed urinalysis with proteinuria. Discussed options for renal replacement therapy including hemodialysis and peritoneal dialysis and renal transplant The patient has consented to proceed with hemodialysis today Appreciate vascular surgery for access placement. We'll need dialysis placement psych social worker for dialysis placement Hemodialysis after tunneled dialysis catheter placement (2) Hypertension Current Visit: No Status: Acute Qualifiers: Hypertension type: essential hypertension Qualified Code(s): I10 - Essential (primary) hypertension Plan to address problem: Hypertension uncontrolled we'll initiate antihypertensive medications Labetalol 20mg IV prn systolic >180 Add amlodipine 5 mg daily (3) Hypocalcemia Current Visit: No Status: Resolved Plan to address problem: Hypocalcemia in the setting of probable chronic kidney disease Check vitamin D levels pending Continue calcitriol 0.5 mcg daily We'll give 1 dose of 50,000 units of vitamin D as well (4) Hyperparathyroidism due to renal insufficiency Current Visit: Yes Status: Acute Plan to address problem: Markedly elevated PTH consistent with chronic kidney disease continue calcitriol 0.5mcg daily. Hypocalcemia noted Check vitamin D level pending. Subjective Interval history: 63-year-old gentleman with history of hypertension presenting with complaints of shortness of breath reports is usually used to live in [place] moved to [place] denies benign we will previous chronic kidney disease denies any family history of chronic kidney disease denies any nausea vomiting abdominal pain Patient seen today Renal function is not improving Discussed the need to initiate dialysis today Appreciate involvement of vascular surgery has been consulted to place a tunneled dialysis catheter Still has some shortness of breath, Objective - Vital Signs Vital signs: Vital Signs - 12hr 01/22/19 01/23/19 01/23/19 23:25 03:22 07:16 Temperature 98.3 F 98.3 F 98 F Pulse Rate 97 H 102 H 82 Respiratory 18 18 22 Rate Blood Pressure 134/85 156/111 Blood Pressure 135/77 [Left] O2 Sat by Pulse 91 94 92 Oximetry 01/23/19 08:29 Temperature 98.3 F Pulse Rate 107 H Respiratory 20 Rate Blood Pressure 167/103 Blood Pressure [Left] O2 Sat by Pulse 93 Oximetry - General Appearance General appearance: well-developed, well-nourished EENT: ATNC, PERRL Neck: no JVD Respiratory: Present: Decreased Breath Sounds Cardiology: regular, S1S2 Gastrointestinal: normal, normoactive bowel sounds Integumentary: no rash Neurologic: no focal deficit, alert and oriented x3 Musculoskeletal: deferred, deformities - Lab 01/23/19 04:15 01/23/19 04:15 Most recent lab results Calcium 6.0 mg/dL (8.4-10.2) L 01/23/19 04:15 Magnesium 1.80 mg/dL (1.7-2.3) 01/21/19 10:02 48.5 mg/dL (0.1-20.0) H 01/22/19 16:08 81 mmol/L 01/21/19 13:00 330 mg/dL (5-11.8) H 01/22/19 16:08 - Imaging Chest x-ray: image reviewed (I reviewed chest x-ray with diffuse interstitial edema) Medications & Allergies - Medications Allergies/Adverse Reactions: Allergies No Known Allergies Allergy (Verified 01/21/19 09:02) Home Medications: Home Medications Medication Instructions Recorded Confirmed Last Taken Type traMADol [Ultram] 50 mg PO Q6HR PRN #7 tablet 01/17/19 01/21/19 Unknown Rx AtorvaSTATin [Lipitor] 10 mg PO DAILY 01/21/19 01/21/19 Unknown History hydroCHLOROthiazide [HCTZ] 25 mg PO QDAY 01/21/19 01/21/19 Unknown History metFORMIN [Glucophage] 500 mg PO QDAY 01/21/19 01/21/19 Unknown History Active Medications: Generic Name Dose Route Start Last Admin Trade Name Freq PRN Reason Stop Dose Admin Acetaminophen 650 mg 01/21/19 12:52 Tylenol PO Q4H PRN Pain MILD(1-3)/Fever >100.5/MANE Atorvastatin Calcium 10 mg 01/22/19 10:00 01/23/19 10:01 Lipitor PO 10 mg DAILY [facility] Administration Calcitriol 0.5 mcg 01/21/19 20:00 01/23/19 10:02 Rocaltrol PO 0.5 mcg QDAY [facility] Administration Dextrose 50 ml 01/21/19 13:10 D50w (25gm) Syringe IV PRN PRN Hypoglycemia Furosemide 80 mg 01/21/19 18:00 01/23/19 05:39 Lasix IV 80 mg BID@0600,1800 [facility] Administration Hydralazine HCl 10 mg 01/21/19 13:10 01/22/19 16:04 Apresoline IV 10 mg Q4HR PRN Administration BP >160/100 Insulin Human Lispro 0 unit 01/21/19 16:30 01/23/19 08:19 Humalog SUB-Q Not Given ACHS [facility] Protocol Ondansetron HCl 4 mg 01/21/19 12:52 Zofran IV Q8H PRN Nausea And Vomiting Sodium Bicarbonate 1,300 mg 01/21/19 22:00 01/23/19 10:02 Sodium Bicarbonate PO 1,300 mg BID [facility] Administration Sodium Chloride 10 ml 01/21/19 22:00 01/23/19 10:02 Sodium Chloride Flush Syringe 10 Ml IV 10 ml BID [facility] Administration Sodium Chloride 10 ml 01/21/19 12:52 Sodium Chloride Flush Syringe 10 Ml IV PRN PRN LINE FLUSH Tramadol HCl 50 mg 01/21/19 12:52 01/22/19 09:45 Ultram PO 50 mg Q6HR PRN Administration Pain
[2019-01-23] MEDS: NORVASC PO SCH (14:02)
[2019-01-23 14:49] LABS: Hepatitis C Virus Antibody Reactive (NonReactive)
--- NOTE | 2019-01-23 15:26 | Progress Note ---
Assessment and Plan /LORRI with possible progression to end-stage renal disease mgt per nephrology, hold metformin Started on HD today with permcath continue hemodialysis MWF per renal may need outpt HD setup /CHFrEF with acute exacerbation - 2d echo showed Ef ~15% -likely cardiorenal syndrome -strict I&O, daily weights, IV diuretics, optimize meds, cardiology consult, obtain echo /Hypertension, cont BP meds and adjust as needed - Labetalol 20mg IV prn systolic >180 /Hyperlipidemia, cont statin /Diabetes mellitus type 2 Continue SSI /hypocalcemia, Hypocalcemia in the setting of probable chronic kidney disease Check vitamin D levels initiate calcitriol /Hyperparathyroidism due to renal insufficiency Markedly elevated PTH consistent with chronic kidney disease contiue calcitriol 0.5mcg daily. Check vitamin D level pending. /dvt ppx- heparin Brief history: 63-year-old man admitted with shortness of breath and lower extremity edema. He presented to the emergency room last week with similar symptoms, but refused to stay in hospital and discharged himself AGAINST MEDICAL ADVICE. On this presentation, his symptoms worsened, chest x-ray in the emergency room revealed severe pulmonary edema with near whiteout of bilateral lung boudreaux,which is worse than previous CXR. In addition, there is marked cardiomegaly. In the ER there was severe renal failure with a creatinine of 7.6. The patient denies any history of cardiac or renal disease. admitted for further evaluation and management. Hospitalist physical: GENERAL: well-developed and well-nourished AAM lying on bed appeared to be in no discomfort. HEENT: Normocephalic. Atraumatic. No conjunctival congestion or icterus. Radha ent has moist mucous membranes. NECK: Supple. Trachea midline. CHEST/LUNGS: Clear to auscultated bilaterally, breathing nonlabored. No wheezes crackles or rhonchi. HEART/CARDIOVASCULAR: Regular in rate and rhythm. S1 and S2 positive. ABDOMEN: Abdomen is soft, nontender. Patient has normal bowel sounds. SKIN: There is no rash. Warm and dry. NEURO: No focal motor deficit. Follows command. MUSCULOSKELETAL: No joint effusion or tenderness. EXTRIMITY: No edema, no cyanosis or clubbing. PSYCH: Cooperative. Subjective Date of service: 01/23/19 Interval history: Patient seen and examined. Medical records and medication list reviewed. No acute event overnight noted by the RN. Patient denies any chest pain or difficulty breathing. Patient is tolerating diet. s/p hemodialysis today Discussed plan of care at bedside with patient. Objective - Constitutional Vitals: Vital Signs - 12hr 01/23/19 01/23/19 01/23/19 07:09 07:16 08:29 Temperature 98 F 98.3 F Pulse Rate 96 H 82 107 H Respiratory 22 20 Rate Blood Pressure 167/103 Blood Pressure 135/77 [Left] O2 Sat by Pulse 92 93 Oximetry - Labs CBC & Chem 7: 01/23/19 04:15 01/24/19 04:26 Labs: Abnormal lab results 01/22/19 01/22/19 01/22/19 Range/Units 09:19 15:56 16:08 Hgb (11.8-15.2) gm/dl Hct (35.5-45.6) % MCV (84-94) fl MCH (28-32) pg MCHC (32-34) % RDW (13.2-15.2) % Plt Count (140-440) K/mm3 Lymphocytes % (Manual) (13.4-35.0) % Monocytes % (Manual) (0.0-7.3) % BUN (9-20) mg/dL Creatinine (0.8-1.5) mg/dL Glucose (75-100) mg/dL POC Glucose 139 H (70-105) Hemoglobin A1c 6.7 H (4-6) % Calcium (8.4-10.2) mg/dL Urine Creatinine 48.5 H (0.1-20.0) mg/dL Urine Microalbumin 58.4 H (0.1-34.0) mg/dL Urine Total Protein 330 H (5-11.8) mg/dL Hepatitis C Antibody (NonReactive) 01/22/19 01/23/19 01/23/19 Range/Units 20:51 04:15 04:15 Hgb 8.9 L (11.8-15.2) gm/dl Hct 29.0 L (35.5-45.6) % MCV 68 L (84-94) fl MCH 21 L (28-32) pg MCHC 31 L (32-34) % RDW 16.3 H (13.2-15.2) % Plt Count 462 H (140-440) K/mm3 Lymphocytes % (Manual) 39.0 H (13.4-35.0) % Monocytes % (Manual) 8.0 H (0.0-7.3) % BUN 73 H (9-20) mg/dL Creatinine 7.6 H (0.8-1.5) mg/dL Glucose 105 H (75-100) mg/dL POC Glucose 136 H (70-105) Hemoglobin A1c (4-6) % Calcium 6.0 L (8.4-10.2) mg/dL Urine Creatinine (0.1-20.0) mg/dL Urine Microalbumin (0.1-34.0) mg/dL Urine Total Protein (5-11.8) mg/dL Hepatitis C Antibody (NonReactive) 01/23/19 Range/Units 13:30 Hgb (11.8-15.2) gm/dl Hct (35.5-45.6) % MCV (84-94) fl MCH (28-32) pg MCHC (32-34) % RDW (13.2-15.2) % Plt Count (140-440) K/mm3 Lymphocytes % (Manual) (13.4-35.0) % Monocytes % (Manual) (0.0-7.3) % BUN (9-20) mg/dL Creatinine (0.8-1.5) mg/dL Glucose (75-100) mg/dL POC Glucose (70-105) Hemoglobin A1c (4-6) % Calcium (8.4-10.2) mg/dL Urine Creatinine (0.1-20.0) mg/dL Urine Microalbumin (0.1-34.0) mg/dL Urine Total Protein (5-11.8) mg/dL Hepatitis C Antibody Reactive A (NonReactive)
[2019-01-23 15:32] LABS: Hepatitis B Surface Antigen Non-Reactive (Negative)
[2019-01-23] MEDS ORDERED: HEPARIN/NS 5000 UNIT/500ML(CATH LAB) 500 ML IR ONE (17:06)
[2019-01-23] MEDS ORDERED: HEPARIN 10,000 UNITS/10 ML ONE (17:06)
[2019-01-23] MEDS ORDERED: ANCEF/STERILE WATER 2 GM/20 ML 2 GM/20 ML SYRINGE IV ONE (17:07)
[2019-01-23] MEDS ORDERED: NACL 0.9% 500 ML 500 ML ONE (17:18)
[2019-01-23] MEDS: VERSED ONE ×2 (17:50→17:52)
[2019-01-23] MEDS: SUBLIMAZE ONE ×2 (17:50→17:52)
[2019-01-23] MEDS: XYLOCAINE 1%/ EPI 1:100,000 INFILTRATI ONE ×2 (17:51→18:04)
--- NOTE | 2019-01-23 18:18 | Operative Report ---
Operative Report Operative Report: Right Jugular Permacath Date of procedure: 01/23/2019 Pre-operative diagnosis: ESRD Post-operative diagnosis: same Procedure name(s): 1. US guided puncture of the right internal jugular vein 2. Placement of right internal jugular permacath (Glidepath 27 cm) 3. Fluoroscopic supervision Surgeon: El Ledezma MD, FACS Corporate Accounting Manager: none Anesthesia: local with sedation; Sedation start: 1749 Sedation end: 1811 Total sedation time: 22 minutes or 2 anesthesia units EBL: minimal Operative indication: Patient is a 63 yo man who requires hemodialysis access. Findings: Good flow from both ports. Catheter located at the cavoatrial junction. Procedure: The patient was placed on the table in the supine position. The area over the right neck and chest was prepped with ChloraPrep solution and draped in usual sterile fashion. 2% lidocaine was used for local anesthesia. Under real-time ultrasound guidance the right internal jugular vein was identified and cannulated. A guidewire was advanced into the central circulation. A tunnel was made over the anterior chest using the tunneling device in the kit. The catheter was then tunneled between the 2 incisions. Using a series of dilators, the track into the jugular vein was dilated. The introducer sheath was then p laced. The catheter was placed through the introducer sheath which was then removed. The catheter tip was placed at the cavoatrial junction. The catheters were aspirated with excellent flow from both ports. Both ports flushed easily. They were then filled to their stated volume with 1000 unit per milliliter heparin. Closure at the insertion site was done with 4-0 subcuticular Monocryl. The catheter was sewn to the skin with 2-0 Proline. Sterile dressings were applied. The patient tolerated the procedure well.
[2019-01-23] MEDS: VITAMIN D2 PO SCH (22:40)
[2019-01-24] MEDS: ULTRAM PO PRN (01:05)
[2019-01-24] MEDS: MORPHINE IV PRN (04:07)
[2019-01-24 05:20] LABS: Calcium 6.8 mg/dL (8.4-10.2)
[2019-01-24] MEDS ORDERED: MAGNESIUM SULFATE 1 GM in NACL 0.9% 50 ML IV ONE (05:28)
[2019-01-24] MEDS: LASIX IV SCH ×2 (06:18→17:54)
--- NOTE | 2019-01-24 09:21 | Progress Note ---
Assessment and Plan Chronic renal failure initiated on dialysis Hypertension Pulmonary edema Hypocalcemia Recommendations: Defer to nephrology for diuretic management in the setting of acute pulmonary edema and severe renal failure. Echocardiogram for left ventricular function assessment. Subjective Date of service: 01/24/19 Interval history: Patient has no cardiac complaints. Short burst of NSVT seen on telemetry overnight. Patient remained asymptomatic. Objective Vital Signs Temp Pulse Resp BP BP Pulse Ox 01/24/19 04:23 97 H 01/24/19 04:06 98.3 F 101 H 20 159/104 91 01/24/19 00:45 102 H 01/23/19 23:10 98.0 F 95 H 18 150/95 94 01/23/19 22:05 98.0 F 99 H 18 121/76 01/23/19 22:00 74 130/82 01/23/19 21:45 89 133/65 01/23/19 21:30 91 H 131/90 01/23/19 21:15 80 131/77 01/23/19 21:00 100 H 136/82 01/23/19 20:45 85 159/92 01/23/19 20:30 80 157/86 01/23/19 20:15 88 154/85 01/23/19 20:00 98 F 87 20 152/83 157/96 98 01/23/19 19:45 90 154/98 01/23/19 19:30 97 H 157/96 01/23/19 19:15 95 H 163/91 01/23/19 19:00 94 H 152/86 01/23/19 18:50 98.0 F 96 H 20 166/95 01/23/19 15:01 97.7 F 95 H 18 145/100 92 - Physical Examination General: No Apparent Distress HEENT: Positive: PERRL Neck: Positive: neck supple Cardiac: Positive: Reg Rate and Rhythm Lungs: Positive: Decreased Breath Sounds Neuro: Positive: Grossly Intact Extremities: Present: +1 Edema - Labs and Meds Comprehensive Metabolic Panel 01/24/19 Range/Units 04:26 Sodium 141 (137-145) mmol/L Potassium 4.4 (3.6-5.0) mmol/L Chloride 100.2 (98-107) mmol/L Carbon Dioxide 25 (22-30) mmol/L BUN 48 H (9-20) mg/dL Creatinine 6.0 H (0.8-1.5) mg/dL Glucose 105 H (75-100) mg/dL Calcium 6.8 L (8.4-10.2) mg/dL
[2019-01-24] MEDS: NORVASC PO SCH (09:26)
[2019-01-24] MEDS: SODIUM BICARBONATE PO SCH ×2 (09:26→22:41)
[2019-01-24] MEDS: ROCALTROL PO SCH (09:26)
[2019-01-24] MEDS: HumaLOG SUB-Q SCH ×4 (09:27→22:42)
[2019-01-24] MEDS: SODIUM CHLORIDE FLUSH SYRINGE 10 ML IV SCH ×2 (09:31→22:42)
--- NOTE | 2019-01-24 10:21 | Progress Note ---
Assessment and Plan - Patient Problems (1) Acute on chronic renal failure Current Visit: Yes Status: Acute Plan to address problem: Acute on chronic renal failure more likely progressive chronic kidney disease Has volume overload continue diuretics Pending serologies Strict input and output Hypocalcemia significant hyperparathyroidism: Consistent with chronic kidney disease I reviewed urinalysis with proteinuria. Discussed options for renal replacement therapy including hemodialysis and peritoneal dialysis and renal transplant The patient has consented to proceed with hemodialysis Appreciate vascular surgery for access placement. We'll need dialysis placement social media specialist for dialysis placement Hemodialysis yesterday following tunneled dialysis catheter placement continue hemodialysis MWF. (2) Hypertension Current Visit: No Status: Acute Qualifiers: Hypertension type: essential hypertension Qualified Code(s): I10 - Essential (primary) hypertension Plan to address problem: Hypertension uncontrolled we'll initiate antihypertensive medications Labetalol 20mg IV prn systolic >180 Add amlodipine 5 mg daily (3) Hypocalcemia Current Visit: No Status: Resolved Plan to address problem: Hypocalcemia in the setting of probable chronic kidney disease Check vitamin D levels pending Continue calcitriol 0.5 mcg daily We'll give 1 dose of 50,000 units of vitamin D as well (4) Hyperparathyroidism due to renal insufficiency Current Visit: Yes Status: Acute Plan to address problem: Markedly elevated PTH consistent with chronic kidney disease continue calcitriol 0.5mcg daily. Hypocalcemia noted Check vitamin D level pending. Subjective Interval history: 63-year-old gentleman with history of hypertension presenting with complaints of shortness of breath reports is usually used to live in [place] moved to [place] denies benign we will previous chronic kidney disease denies any family history of chronic kidney disease denies any nausea vomiting abdominal pain Patient seen today Renal function is not improving Discussed the need to initiate dialysis today Appreciate involvement of vascular surgery has been consulted to place a tunneled dialysis catheter Still has some shortness of breath, Objective - Vital Signs Vital signs: Vital Signs - 12hr 01/23/19 01/24/19 01/24/19 23:10 00:45 04:06 Temperature 98.0 F 98.3 F Pulse Rate 95 H 102 H 101 H Respiratory 18 20 Rate Blood Pressure 150/95 159/104 O2 Sat by Pulse 94 91 Oximetry 01/24/19 01/24/19 04:23 09:26 Temperature Pulse Rate 97 H Respiratory Rate Blood Pressure 153/98 O2 Sat by Pulse Oximetry - General Appearance General appearance: well-developed, well-nourished EENT: ATNC, PERRL, mucous membranes moist Neck: no JVD Respiratory: Present: Clear to Ascultation Cardiology: regular, S1S2 Gastrointestinal: normal, normoactive bowel sounds Integumentary: no rash Neurologic: alert and oriented x3, CN 3-12 intact Psychiatric: mood/affect appropriate - Lab 01/23/19 04:15 01/24/19 04:26 Most recent lab results Calcium 6.8 mg/dL (8.4-10.2) L 01/24/19 04:26 Magnesium 1.50 mg/dL (1.7-2.3) L 01/24/19 04:26 48.5 mg/dL (0.1-20.0) H 01/22/19 16:08 81 mmol/L 01/21/19 13:00 330 mg/dL (5-11.8) H 01/22/19 16:08 - Imaging Chest x-ray: image reviewed Medications & Allergies - Medications Allergies/Adverse Reactions: Allergies No Known Allergies Allergy (Verified 01/21/19 09:02) Home Medications: Home Medications Medication Instructions Recorded Confirmed Last Taken Type traMADol [Ultram] 50 mg PO Q6HR PRN #7 tablet 01/17/19 01/21/19 Unknown Rx AtorvaSTATin [Lipitor] 10 mg PO DAILY 01/21/19 01/21/19 Unknown History hydroCHLOROthiazide [HCTZ] 25 mg PO QDAY 01/21/19 01/21/19 Unknown History metFORMIN [Glucophage] 500 mg PO QDAY 01/21/19 01/21/19 Unknown History Active Medications: Generic Name Dose Route Start Last Admin Trade Name Freq PRN Reason Stop Dose Admin Acetaminophen 650 mg 01/21/19 12:52 Tylenol PO Q4H PRN Pain MILD(1-3)/Fever >100.5/MANE Amlodipine Besylate 5 mg 01/23/19 11:00 01/24/19 09:26 Norvasc PO 5 mg QDAY FRANCK Administration Atorvastatin Calcium 10 mg 01/22/19 10:00 01/24/19 09:26 Lipitor PO 10 mg DAILY FRANCK Administration Calcitriol 0.5 mcg 01/21/19 20:00 01/24/19 09:26 Rocaltrol PO 0.5 mcg QDAY FRANCK Administration Dextrose 50 ml 01/21/19 13:10 D50w (25gm) Syringe IV PRN PRN Hypoglycemia Ergocalciferol 50,000 unit 01/23/19 21:00 01/23/19 22:40 Vitamin D2 PO 50,000 unit We FRANCK Administration Furosemide 80 mg 01/21/19 18:00 01/24/19 06:18 Lasix IV 80 mg BID@0600,1800 FRANCK Administration Hydralazine HCl 10 mg 01/21/19 13:10 01/22/19 16:04 Apresoline IV 10 mg Q4HR PRN Administration BP >160/100 Insulin Human Lispro 0 unit 01/21/19 16:30 01/24/19 09:27 Humalog SUB-Q Not Given ACHS [facility] Protocol Morphine Sulfate 2 mg 01/24/19 03:52 01/24/19 04:07 Morphine IV 2 mg Q4H PRN Administration Pain, Moderate (6-10) Ondansetron HCl 4 mg 01/21/19 12:52 Zofran IV Q8H PRN Nausea And Vomiting Sodium Bicarbonate 1,300 mg 01/21/19 22:00 01/24/19 09:26 Sodium Bicarbonate PO 1,300 mg BID FRANCK Administration Sodium Chloride 10 ml 01/21/19 22:00 01/24/19 09:31 Sodium Chloride Flush Syringe 10 Ml IV 10 ml BID FRANCK Administration Sodium Chloride 10 ml 01/21/19 12:52 01/24/19 06:18 Sodium Chloride Flush Syringe 10 Ml IV 10 ml PRN PRN Administration LINE FLUSH Tramadol HCl 50 mg 01/21/19 12:52 01/24/19 01:05 Ultram PO 50 mg Q6HR PRN Administration Pain
[2019-01-24 12:59] LABS: ANA Screen, IFA Negative (Negative)
--- NOTE | 2019-01-24 16:37 | Progress Note ---
Assessment and Plan /LORRI with possible progression to end-stage renal disease mgt per nephrology, hold metformin Started on HD since 01/23 with permcath continue hemodialysis MWF per renal may need outpt HD setup /CHFrEF with acute exacerbation - 2d echo showed Ef ~15% -likely cardiorenal syndrome -strict I&O, daily weights, optimize meds, cardiology following, - volume mx per HD, start on aspirin/statin BB - plan for stress test tomorrow /Hypertension, cont BP meds and adjust as needed - Labetalol 20mg IV prn systolic >180 /Hyperlipidemia, cont statin /Diabetes mellitus type 2 Continue SSI, a1c 6.7 /hypocalcemia, Hypocalcemia in the setting of probable chronic kidney disease Check vitamin D levels initiate calcitriol /Hyperparathyroidism due to renal insufficiency Markedly elevated PTH consistent with chronic kidney disease contiue calcitriol 0.5mcg daily. Check vitamin D level pending. /dvt ppx- heparin Brief history: 63-year-old man admitted with shortness of breath and lower extremity edema. He presented to the emergency room last week with similar symptoms, but refused to stay in hospital and discharged himself AGAINST MEDICAL ADVICE. On this presentation, his symptoms worsened, chest x-ray in the emergency room revealed severe pulmonary edema with near whiteout of bilateral lung boudreaux,which is worse than previous CXR. In addition, there is marked cardiomegaly. In the ER there was severe renal failure with a creatinine of 7.6. The patient denies any history of cardiac or renal disease. admitted for further evaluation and management. Hospitalist physical: GENERAL: well-developed and well-nourished AAM lying on bed appeared to be in no discomfort. HEENT: Normocephalic. Atraumatic. No conjunctival congestion or icterus. Patient has moist mucous membranes. NECK: Supple. Trachea midline. CHEST/LUNGS: Clear to auscultated bilaterally, breathing nonlabored. No wheezes crackles or rhonchi. HEART/CARDIOVASCULAR: Regular in rate and rhythm. S1 and S2 positive. ABDOMEN: Abdomen is soft, nontender. Patient has normal bowel sounds. SKIN: There is no rash. Warm and dry. NEURO: No focal motor deficit. Follows command. MUSCULOSKELETAL: No joint effusion or tenderness. EXTRIMITY: No edema, no cyanosis or clubbing. PSYCH: Cooperative. Subjective Date of service: 01/24/19 Interval history: Patient seen and examined. Medical records and medication list reviewed. No acute event overnight noted by the RN. Patient denies any chest pain or difficulty breathing. Patient is tolerating diet. Denies any new complaints, we will remained dialysis set up as outpatient Discussed plan of care at bedside with patient. Objective - Constitutional Vitals: Vital Signs - 12hr 01/24/19 01/24/19 01/24/19 08:47 09:26 12:06 Temperature 98.7 F 98.2 F Pulse Rate 97 H 103 H Respiratory 16 16 Rate Blood Pressure 153/98 153/98 141/100 O2 Sat by Pulse 94 93 Oximetry - Labs CBC & Chem 7: 01/25/19 04:30 01/26/19 04:35 Labs: Abnormal lab results 01/23/19 01/24/19 01/24/19 Range/Units 21:19 04:26 04:26 BUN 48 H (9-20) mg/dL Creatinine 6.0 H (0.8-1.5) mg/dL Glucose 105 H (75-100) mg/dL POC Glucose 188 H (70-105) Calcium 6.8 L (8.4-10.2) mg/dL Magnesium 1.50 L (1.7-2.3) mg/dL 01/24/19 Range/Units 12:11 BUN (9-20) mg/dL Creatinine (0.8-1.5) mg/dL Glucose (75-100) mg/dL POC Glucose 160 H (70-105) Calcium (8.4-10.2) mg/dL Magnesium (1.7-2.3) mg/dL
[2019-01-24] MEDS ORDERED: NORVASC PO SCH ×2 (16:50→17:00)
[2019-01-24 17:42] LABS: Myeloperoxidase Antibody <1.0 AI (<1.0)
[2019-01-24] MEDS: PROTONIX PO SCH (17:53)
[2019-01-24] MEDS: BABY ASPIRIN PO SCH (17:53)
[2019-01-24] MEDS: ALDACTONE PO SCH (17:53)
[2019-01-24] MEDS: ZESTRIL PO SCH (17:54)
[2019-01-24] MEDS ORDERED: COREG PO SCH (22:00)
[2019-01-24] MEDS: COREG PO SCH (22:41)
[2019-01-25 05:20] LABS: Calcium 6.1 mg/dL (8.4-10.2)
[2019-01-25 05:42] LABS: Basophils # (Auto) 0.1 K/mm3 (0.0-0.1); Eosinophils # (Auto) 0.3 K/mm3 (0.0-0.4); Eosinophils % (Auto) 3.1 % (0.0-4.3); Hematocrit 29.2 % (35.5-45.6); Lymphocytes # (Auto) 3.1 K/mm3 (1.2-5.4); Lymphocytes % (Auto) 33.1 % (13.4-35.0); Mean Corpuscular HGB Conc 31 % (32-34); Monocytes # (Auto) 0.9 K/mm3 (0.0-0.8); Platelet Count 399 K/mm3 (140-440); Red Blood Count 4.34 M/mm3 (3.65-5.03); Red Cell Distribution Width 16.5 % (13.2-15.2)
[2019-01-25 05:43] LABS: Mean Corpuscular Volume 67 fl (84-94)
[2019-01-25] MEDS: HumaLOG SUB-Q SCH ×4 (07:30→22:21)
[2019-01-25] MEDS ORDERED: LEXISCAN IV ONE (08:07)
--- NOTE | 2019-01-25 10:44 | Progress Note ---
Assessment and Plan End-stage renal failure initiated on dialysis Dilated cardiomyopathy, non-ischemic MPI this admission showing no convincing evidence of ischemia and severe global hypokinesis Acute systolic heart failure Hypertension Hypocalcemia Recommendations: Continue guideline directed medical therapy HD for fluid management Outpatient cardiac follow-up Subjective Date of service: 01/25/19 Principal diagnosis: Cardiomyopathy Interval history: Patient denies chest pain or shortness of breath Tele - 1 episode of NSVT Objective Vital Signs Temp Pulse Resp BP Pulse Ox 01/25/19 03:33 98.7 F 86 19 117/83 95 01/24/19 23:28 99.3 F 99 H 19 110/56 93 01/24/19 22:41 102 H 123/72 01/24/19 20:48 99 H 01/24/19 19:38 98.7 F 102 H 18 123/72 91 01/24/19 17:54 122/76 01/24/19 17:53 122/76 01/24/19 16:39 98.6 F 98 H 18 122/76 92 01/24/19 16:00 101 H 01/24/19 12:06 98.2 F 103 H 16 141/100 93 - Physical Examination General: No Apparent Distress HEENT: Positive: PERRL Neck: Positive: neck supple Cardiac: Positive: Reg Rate and Rhythm Lungs: Positive: Normal Exam Neuro: Positive: Grossly Intact Extremities: Present: +1 Edema - Labs and Meds CBC 01/25/19 Range/Units 04:30 WBC 9.3 (4.5-11.0) K/mm3 RBC 4.34 (3.65-5.03) M/mm3 Hgb 9.0 L (11.8-15.2) gm/dl Hct 29.2 L (35.5-45.6) % Plt Count 399 (140-440) K/mm3 Lymph # 3.1 (1.2-5.4) K/mm3 [place] # 0.9 H (0.0-0.8) K/mm3 Eos # 0.3 (0.0-0.4) K/mm3 Baso # 0.1 (0.0-0.1) K/mm3 Comprehensive Metabolic Panel 01/25/19 Range/Units 04:30 Sodium 137 (137-145) mmol/L Potassium 4.2 (3.6-5.0) mmol/L Chloride 95.4 L (98-107) mmol/L Carbon Dioxide 29 (22-30) mmol/L BUN 53 H (9-20) mg/dL Creatinine 6.9 H (0.8-1.5) mg/dL Glucose 109 H (75-100) mg/dL Calcium 6.1 L (8.4-10.2) mg/dL
[2019-01-25 11:27] LABS: Vitamin D, 25-OH, D2 <4 ng/mL
--- NOTE | 2019-01-25 12:52 | Progress Note ---
Assessment and Plan - Patient Problems (1) Acute on chronic renal failure Current Visit: Yes Status: Acute Plan to address problem: Acute on chronic renal failure more likely progressive chronic kidney disease Has volume overload continue diuretics serologies negative however has positive Hepatitis C antibody. Strict input and output Hypocalcemia significant hyperparathyroidism: Consistent with chronic kidney disease I reviewed urinalysis with proteinuria. Discussed options for renal replacement therapy including hemodialysis and peritoneal dialysis and renal transplant The patient has consented to proceed with hemodialysis Appreciate vascular surgery for access placement. Pending dialysis placement ,appreciate transition social worker for dialysis placement continue hemodialysis MWF. (2) Hypertension Current Visit: No Status: Acute Qualifiers: Hypertension type: essential hypertension Qualified Code(s): I10 - E ssential (primary) hypertension Plan to address problem: Hypertension controlled continue amlodipine 5 mg daily (3) Hypocalcemia Current Visit: No Status: Resolved Plan to address problem: Hypocalcemia in the setting of probable chronic kidney disease Check vitamin D levels:7!!! Continue calcitriol 0.5 mcg daily We'll give 50,000 units of vitamin D as well (4) Hyperparathyroidism due to renal insufficiency Current Visit: Yes Status: Acute Plan to address problem: Markedly elevated PTH consistent with chronic kidney disease continue calcitriol 0.5mcg daily. Hypocalcemia noted Check vitamin D level is 7 continue Vitamin D [id number] q treatment. Subjective Principal diagnosis: Cardiomyopathy Interval history: 63-year-old gentleman with history of hypertension presenting with complaints of shortness of breath reports is usually used to live in [place] moved to [place] denies benign we will previous chronic kidney disease denies any family history of chronic kidney disease denies any nausea vomiting abdominal pain Patient seen today on dialysis at 11am. reports breathing is improved Denies any fevers or chills Denies any lower extremity edema. , awaiting dialysis placement. Objective - Vital Signs Vital signs: Vital Signs - 12hr 01/25/19 01/25/19 01/25/19 03:33 08:20 08:40 Temperature 98.7 F Pulse Rate 86 Respiratory 19 Rate Blood Pressure 117/83 132/91 131/87 O2 Sat by Pulse 95 Oximetry 01/25/19 01/25/19 01/25/19 08:41 08:42 08:43 Temperature Pulse Rate Respiratory Rate Blood Pressure 124/78 133/88 127/88 O2 Sat by Pulse Oximetry 01/25/19 01/25/19 01/25/19 08:44 10:00 10:10 Temperature 96.8 F L Pulse Rate 85 81 Respiratory 18 Rate Blood Pressure 133/89 135/90 120/86 O2 Sat by Pulse Oximetry 01/25/19 01/25/19 01/25/19 10:15 10:30 10:45 Temperature Pulse Rate 85 82 76 Respiratory Rate Blood Pressure 137/97 116/90 137/87 O2 Sat by Pulse Oximetry 01/25/19 01/25/19 01/25/19 11:00 11:15 11:30 Temperature Pulse Rate 783 H 78 67 Respiratory Rate Blood Pressure 138/88 124/81 113/59 O2 Sat by Pulse Oximetry - General Appearance General appearance: well-developed, well-nourished EENT: ATNC, PERRL, mucous membranes moist Neck: no JVD Respiratory: Present: Decreased Breath Sounds Cardiology: regular, S1S2 Gastrointestinal: normal, normoactive bowel sounds Integumentary: no rash Neurologic: alert and oriented x3, CN 3-12 intact Psychiatric: mood/affect appropriate - Lab 01/25/19 04:30 01/25/19 04:30 Most recent lab results Calcium 6.1 mg/dL (8.4-10.2) L 01/25/19 04:30 Magnesium 1.50 mg/dL (1.7-2.3) L 01/24/19 04:26 48.5 mg/dL (0.1-20.0) H 01/22/19 16:08 81 mmol/L 01/21/19 13:00 330 mg/dL (5-11.8) H 01/22/19 16:08 - Imaging Chest x-ray: image reviewed (I reviewed CXR with bilateral pulmonary edema. ) Medications & Allergies - Medications Allergies/Adverse Reactions: Allergies No Known Allergies Allergy (Verified 01/21/19 09:02) Home Medications: Home Medications Medication Instructions Recorded Confirmed Last Taken Type traMADol [Ultram] 50 mg PO Q6HR PRN #7 tablet 01/17/19 01/21/19 Unknown Rx AtorvaSTATin [Lipitor] 10 mg PO DAILY 01/21/19 01/21/19 Unknown History hydroCHLOROthiazide [HCTZ] 25 mg PO QDAY 01/21/19 01/21/19 Unknown History metFORMIN [Glucophage] 500 mg PO QDAY 01/21/19 01/21/19 Unknown History Active Medications: Generic Name Dose Route Start Last Admin Trade Name Freq PRN Reason Stop Dose Admin Acetaminophen 650 mg 01/21/19 12:52 Tylenol PO Q4H PRN Pain MILD(1-3)/Fever >100.5/MANE Aspirin 81 mg 01/24/19 17:00 01/24/19 17:53 Baby Aspirin PO 81 mg QDAY FRANCK Administration Atorvastatin Calcium 10 mg 01/22/19 10:00 01/24/19 09:26 Lipitor PO 10 mg DAILY FRANCK Administration Calcitriol 0.5 mcg 01/21/19 20:00 01/24/19 09:26 Rocaltrol PO 0.5 mcg QDAY FRANCK Administration Carvedilol 12.5 mg 01/24/19 22:00 01/24/19 22:41 Coreg PO 12.5 mg BID FRANCK Administration Dextrose 50 ml 01/21/19 13:10 D50w (25gm) Syringe IV PRN PRN Hypoglycemia Ergocalciferol 50,000 unit 01/23/19 21:00 01/23/19 22:40 Vitamin D2 PO 50,000 unit We [facility] Administration Furosemide 80 mg 01/21/19 18:00 01/24/19 17:54 Lasix IV 80 mg BID@0600,1800 FRANCK Administration Hydralazine HCl 10 mg 01/21/19 13:10 01/22/19 16:04 Apresoline IV 10 mg Q4HR PRN Administration BP >160/100 Insulin Human Lispro 0 unit 01/21/19 16:30 01/24/19 22:42 Humalog SUB-Q Not Given [facility] Protocol Lisinopril 20 mg 01/24/19 18:00 01/24/19 17:54 Zestril PO 20 mg QDAY FRANCK Administration Morphine Sulfate 2 mg 01/24/19 03:52 01/24/19 04:07 Morphine IV 2 mg Q4H PRN Administration Pain, Moderate (6-10) Ondansetron HCl 4 mg 01/21/19 12:52 Zofran IV Q8H PRN Nausea And Vomiting Pantoprazole Sodium 40 mg 01/24/19 17:00 01/24/19 17:53 Protonix PO 40 mg QDAY FRANCK Administration Sodium Bicarbonate 1,300 mg 01/21/19 22:00 01/24/19 22:41 Sodium Bicarbonate PO 1,300 mg BID FRANCK Administration Sodium Chloride 10 ml 01/21/19 22:00 01/24/19 22:42 Sodium Chloride Flush Syringe 10 Ml IV 10 ml BID FRANCK Administration Sodium Chloride 10 ml 01/21/19 12:52 01/24/19 06:18 Sodium Chloride Flush Syringe 10 Ml IV 10 ml PRN PRN Administration LINE FLUSH Spironolactone 12.5 mg 01/24/19 18:00 01/24/19 17:53 Aldactone PO 12.5 mg QDAY FRANCK Administration Tramadol HCl 50 mg 01/21/19 12:52 01/24/19 01:05 Ultram PO 50 mg Q6HR PRN Administration Pain
[2019-01-25] MEDS: ROCALTROL PO SCH (14:36)
[2019-01-25] MEDS: ALDACTONE PO SCH (14:36)
[2019-01-25] MEDS: SODIUM BICARBONATE PO SCH ×2 (14:36→22:21)
[2019-01-25] MEDS: ZESTRIL PO SCH (14:36)
[2019-01-25] MEDS: PROTONIX PO SCH (14:37)
[2019-01-25] MEDS: COREG PO SCH ×2 (14:38→22:21)
[2019-01-25] MEDS: SODIUM CHLORIDE FLUSH SYRINGE 10 ML IV SCH ×2 (14:39→22:22)
[2019-01-25] MEDS: BABY ASPIRIN PO SCH (14:44)
--- NOTE | 2019-01-25 14:53 | Progress Note ---
Assessment and Plan /CHFrEF with acute exacerbation - 2d echo showed Ef ~15% -likely cardiorenal syndrome -strict I&O, daily weights, optimize meds, cardiology following, - volume mx per HD, cont on aspirin/statin BB - s/p stress test today - we'll follow results /LORRI with possible progression to end-stage renal disease mgt per nephrology, hold metformin Started on HD since 01/23 with permcath continue hemodialysis MWF per renal may need outpt HD setup /Hypertension, cont BP meds and adjust as needed - Labetalol 20mg IV prn systolic >180 /Hyperlipidemia, cont statin /Diabetes mellitus type 2 Continue SSI, a1c 6.7 /hypocalcemia, Hypocalcemia in the setting of probable chronic kidney disease and vitamin D deficiency vitamin D level is 7 - started replacement Also initiated calcitriol /Hyperparathyroidism Markedly elevated PTH consistent with chronic kidney disease and also vitamin D deficiency contiue calcitriol 0.5mcg daily. getting vitamin D replacement /dvt ppx- heparin Brief history: 63-year-old man admitted with shortness of breath and lower extremity edema. He presented to the emergency room last week with similar symptoms, but refused to stay in hospital and discharged himself AGAINST MEDICAL ADVICE. On this presentation, his symptoms worsened, chest x-ray in the emergency room revealed severe pulmonary edema with near whiteout of bilateral lung boudreaux,which is worse than previous CXR. In addition, there is marked cardiomegaly. In the ER there was severe renal failure with a creatinine of 7.6. The patient denies any history of cardiac or renal disease. admitted for further evaluation and management. Hospitalist physical: GENERAL: well-developed and well-nourished AAM lying on bed appeared to be in no discomfort. HEENT: Normocephalic. Atraumatic. No conjunctival congestion or icterus. Patient has moist mucous membranes. NECK: Supple. Trachea midline. CHEST/LUNGS: Clear to auscultated bilaterally, breathing nonlabored. No wheezes crackles or rhonchi. HEART/CARDIOVASCULAR: Regular in rate and rhythm. S1 and S2 positive. ABDOMEN: Abdomen is soft, nontender. Patient has normal bowel sounds. SKIN: There is no rash. Warm and dry. NEURO: No focal motor deficit. Follows command. MUSCULOSKELETAL: No joint effusion or tenderness. EXTRIMITY: No edema, no cyanosis or clubbing. PSYCH: Cooperative. Subjective Date of service: 01/25/19 Principal diagnosis: Cardiomyopathy Interval history: Patient seen and examined. Medical records and medication list reviewed. No acute event overnight noted by the RN. Patient denies any chest pain or difficulty breathing. Patient is tolerating diet. Denies any new complaints, we will remained dialysis set up as outpatient Discussed plan of care at bedside with patient. Objective - Constitutional Vitals: Vital Signs - 12hr 01/25/19 01/25/19 01/25/19 03:33 08:20 08:40 Temperature 98.7 F Pulse Rate 86 Respiratory 19 Rate Blood Pressure 117/83 132/91 131/87 O2 Sat by Pulse 95 Oximetry 01/25/19 01/25/19 01/25/19 08:41 08:42 08:43 Temperature Pulse Rate Respiratory Rate Blood Pressure 124/78 133/88 127/88 O2 Sat by Pulse Oximetry 01/25/19 01/25/19 01/25/19 08:44 10:00 10:10 Temperature 96.8 F L Pulse Rate 85 81 Respiratory 18 Rate Blood Pressure 133/89 135/90 120/86 O2 Sat by Pulse Oximetry 01/25/19 01/25/19 01/25/19 10:15 10:30 10:45 Temperature Pulse Rate 85 82 76 Respiratory Rate Blood Pressure 137/97 116/90 137/87 O2 Sat by Pulse Oximetry 01/25/19 01/25/19 01/25/19 11:00 11:15 11:30 Temperature Pulse Rate 783 H 78 67 Respiratory Rate Blood Pressure 138/88 124/81 113/59 O2 Sat by Pulse Oximetry 01/25/19 01/25/19 01/25/19 11:45 12:00 12:15 Temperature Pulse Rate 88 86 84 Respiratory Rate Blood Pressure 133/95 140/91 126/84 O2 Sat by Pulse Oximetry 01/25/19 01/25/19 01/25/19 12:30 12:45 13:00 Temperature 98.2 F Pulse Rate 83 88 83 Respiratory 18 Rate Blood Pressure 118/82 105/83 130/84 O2 Sat by Pulse Oximetry - Labs CBC & Chem 7: 01/25/19 04:30 01/26/19 04:35 Labs: Abnormal lab results 01/24/19 01/24/19 01/25/19 Range/Units 16:40 20:36 04:30 Hgb (11.8-15.2) gm/dl Hct (35.5-45.6) % MCV (84-94) fl MCH (28-32) pg MCHC (32-34) % RDW (13.2-15.2) % [place] % (Auto) (0.0-7.3) % [place] # (0.0-0.8) K/mm3 Chloride 95.4 L (98-107) mmol/L BUN 53 H (9-20) mg/dL Creatinine 6.9 H (0.8-1.5) mg/dL Glucose 109 H (75-100) mg/dL POC Glucose 133 H 154 H (70-105) Calcium 6.1 L (8.4-10.2) mg/dL 01/25/19 Range/Units 04:30 Hgb 9.0 L (11.8-15.2) gm/dl Hct 29.2 L (35.5-45.6) % MCV 67 L (84-94) fl MCH 21 L (28-32) pg MCHC 31 L (32-34) % RDW 16.5 H (13.2-15.2) % [place] % (Auto) 10.0 H (0.0-7.3) % [place] # 0.9 H (0.0-0.8) K/mm3 Chloride (98-107) mmol/L BUN (9-20) mg/dL Creatinine (0.8-1.5) mg/dL Glucose (75-100) mg/dL POC Glucose (70-105) Calcium (8.4-10.2) mg/dL
[2019-01-25] MEDS: LASIX IV SCH ×2 (18:43→19:28)
[2019-01-25] MEDS: MORPHINE IV PRN (18:43)
--- NOTE | 2019-01-25 21:43 | Treadmill Report ---
INDICATION: Cardiomyopathy. ORDERING PHYSICIAN: Dmitriy Hilton MD FINDINGS: The left ventricular cavity is severely dilated. The left ventricular ejection fraction is measured at 20%. There is severe global left ventricular hypokinesis. There is evidence of a small fixed mid inferior wall defect. There is evidence of a small reversible basal anterior wall defect. IMPRESSION: 1. Severely dilated and hypokinetic left ventricle with an ejection fraction measured at 20%. 2. Small fixed mid inferior wall defect. 3. Small mildly reversible basal anterior wall defect. 4. Findings are suggestive of underlying nonischemic cardiomyopathy. Clinical correlation is recommended. JOB# [id number] MARY JO/JOSELIN
[2019-01-25] MEDS: ULTRAM PO PRN (22:21)
[2019-01-26 05:55] LABS: Calcium 6.2 mg/dL (8.4-10.2)
[2019-01-26] MEDS: LASIX IV SCH (06:23)
[2019-01-26] MEDS: HumaLOG SUB-Q SCH ×4 (07:39→23:19)
--- NOTE | 2019-01-26 08:58 | Progress Note ---
Assessment and Plan End-stage renal failure Initiated on dialysis Dilated cardiomyopathy, non-ischemic MPI this admission showing no convincing evidence of ischemia and severe global hypokinesis Acute systolic heart failure Fluid management through HD Hypertension Hypocalcemia Recommendations: Continue guideline directed medical therapy HD for fluid management Outpatient cardiac follow-up Subjective Date of service: 01/26/19 Principal diagnosis: Cardiomyopathy Interval history: Patient denies chest pain or shortness of breath Patient is not on telemetry this morning Objective Vital Signs Temp Pulse Resp BP Pulse Ox 01/26/19 07:16 98.8 F 82 18 96/58 94 01/26/19 04:20 98.6 F 73 16 106/65 92 01/26/19 04:00 79 01/26/19 00:58 86 16 108/66 92 01/26/19 00:00 18 01/25/19 23:54 98.6 F 84 18 83/38 92 01/25/19 20:58 97.8 F 90 18 124/75 91 01/25/19 16:21 98.6 F 96 H 20 112/55 96 01/25/19 16:00 90 01/25/19 13:00 98.2 F 83 18 130/84 01/25/19 12:45 88 105/83 01/25/19 12:30 83 118/82 01/25/19 12:15 84 126/84 01/25/19 12:00 86 140/91 01/25/19 11:45 88 133/95 01/25/19 11:30 67 113/59 01/25/19 11:15 78 124/81 01/25/19 11:00 783 H 138/88 01/25/19 10:45 76 137/87 01/25/19 10:30 82 116/90 01/25/19 10:15 85 137/97 01/25/19 10:10 81 120/86 01/25/19 10:00 96.8 F L 85 18 135/90 - Physical Examination General: No Apparent Distress HEENT: Positive: PERRL Neck: Positive: neck supple Cardiac: Positive: Reg Rate and Rhythm Lungs: Positive: Normal Exam Neuro: Positive: Grossly Intact Extremities: Present: +1 Edema - Labs and Meds Comprehensive Metabolic Panel 01/26/19 Range/Units 04:35 Sodium 137 (137-145) mmol/L Potassium 4.0 (3.6-5.0) mmol/L Chloride 96.9 L (98-107) mmol/L Carbon Dioxide 27 (22-30) mmol/L BUN 38 H (9-20) mg/dL Creatinine 6.2 H (0.8-1.5) mg/dL Glucose 129 H (75-100) mg/dL Calcium 6.2 L (8.4-10.2) mg/dL
--- NOTE | 2019-01-26 10:01 | Progress Note ---
Assessment and Plan Impression: * ESRD * Dilated cardiomyopathy * HTN * Hypocalcemia * cardiorenal syndrome * acute on chr sys HF Plan: * continue hd * uf as tolerated * reduce bp med due to hypertension * strict i/os * await hd unit placement * renal diet/fluid restriction * replete calcium, continue vit d and calcitriol Subjective Date of service: 01/26/19 Principal diagnosis: Cardiomyopathy Interval history: resting well in bed today Objective - Exam Narrative Exam: General appearance: well-developed, well-nourished EENT: ATNC, PERRL, mucous membranes moist Neck: no JVD Respiratory: Present: Decreased Breath Sounds Cardiology: regular, S1S2 Gastrointestinal: normal, normoactive bowel sounds Integumentary: no rash Neurologic: alert and oriented x3, CN 3-12 intact Psychiatric: mood/affect appropriate - Vital Signs Vital signs: Vital Signs - 12hr 01/25/19 01/26/19 01/26/19 23:54 00:00 00:58 Temperature 98.6 F Pulse Rate 84 86 Respiratory 18 18 16 Rate Blood Pressure 83/38 108/66 O2 Sat by Pulse 92 92 Oximetry 01/26/19 01/26/19 01/26/19 04:00 04:20 07:16 Temperature 98.6 F 98.8 F Pulse Rate 79 73 82 Respiratory 16 18 Rate Blood Pressure 106/65 96/58 O2 Sat by Pulse 92 94 Oximetry - Lab 01/25/19 04:30 01/26/19 04:35 Most recent lab results Calcium 6.2 mg/dL (8.4-10.2) L 01/26/19 04:35 Magnesium 1.50 mg/dL (1.7-2.3) L 01/24/19 04:26 48.5 mg/dL (0.1-20.0) H 01/22/19 16:08 81 mmol/L 01/21/19 13:00 330 mg/dL (5-11.8) H 01/22/19 16:08 Medications & Allergies - Medications Allergies/Adverse Reactions: Allergies No Known Allergies Allergy (Verified 01/21/19 09:02) Home Medications: Home Medications Medication Instructions Recorded Confirmed Last Taken Type traMADol [Ultram] 50 mg PO Q6HR PRN #7 tablet 01/17/19 01/21/19 Unknown Rx AtorvaSTATin [Lipitor] 10 mg PO DAILY 01/21/19 01/21/19 Unknown History hydroCHLOROthiazide [HCTZ] 25 mg PO QDAY 01/21/19 01/21/19 Unknown History metFORMIN [Glucophage] 500 mg PO QDAY 01/21/19 01/21/19 Unknown History Active Medications: Generic Name Dose Route Start Last Admin Trade Name Freq PRN Reason Stop Dose Admin Acetaminophen 650 mg 01/21/19 12:52 Tylenol PO Q4H PRN Pain MILD(1-3)/Fever >100.5/MANE Aspirin 81 mg 01/24/19 17:00 01/25/19 14:44 Baby Aspirin PO 81 mg QDAY [facility] Administration Atorvastatin Calcium 10 mg 01/22/19 10:00 01/25/19 14:36 Lipitor PO 10 mg DAILY [facility] Administration Calcitriol 0.5 mcg 01/21/19 20:00 01/25/19 14:36 Rocaltrol PO 0.5 mcg QDAY [facility] Administration Carvedilol 12.5 mg 01/24/19 22:00 01/25/19 22:21 Coreg PO 12.5 mg BID [facility] Administration Dextrose 50 ml 01/21/19 13:10 D50w (25gm) Syringe IV PRN PRN Hypoglycemia Ergocalciferol 50,000 unit 01/23/19 21:00 01/23/19 22:40 Vitamin D2 PO 50,000 unit We [facility] Administration Furosemide 80 mg 01/21/19 18:00 01/26/19 06:23 Lasix IV 80 mg BID@0600,1800 [facility] Administration Hydralazine HCl 10 mg 01/21/19 13:10 01/22/19 16:04 Apresoline IV 10 mg Q4HR PRN Administration BP >160/100 Insulin Human Lispro 0 unit 01/21/19 16:30 01/26/19 07:39 Humalog SUB-Q Not Given [facility] Protocol Lisinopril 20 mg 01/24/19 18:00 01/25/19 14:36 Zestril PO 20 mg QDAY [facility] Administration Morphine Sulfate 2 mg 01/24/19 03:52 01/25/19 18:43 Morphine IV 2 mg Q4H PRN Administration Pain, Moderate (6-10) Ondansetron HCl 4 mg 01/21/19 12:52 Zofran IV Q8H PRN Nausea And Vomiting Pantoprazole Sodium 40 mg 01/24/19 17:00 01/25/19 14:37 Protonix PO 40 mg QDAY [facility] Administration Sodium Bicarbonate 1,300 mg 01/21/19 22:00 01/25/19 22:21 Sodium Bicarbonate PO 1,300 mg BID [facility] Administration Sodium Chloride 10 ml 01/21/19 22:00 01/25/19 22:22 Sodium Chloride Flush Syringe 10 Ml IV 10 ml BID [facility] Administration Sodium Chloride 10 ml 01/21/19 12:52 01/24/19 06:18 Sodium Chloride Flush Syringe 10 Ml IV 10 ml PRN PRN Administration LINE FLUSH Spironolactone 12.5 mg 01/24/19 18:00 01/25/19 14:36 Aldactone PO 12.5 mg QDAY [facility] Administration Tramadol HCl 50 mg 01/21/19 12:52 01/25/19 22:21 Ultram PO 50 mg Q6HR PRN Administration Pain
[2019-01-26] MEDS ORDERED: TUMS PO PRN (10:06)
[2019-01-26] MEDS: SODIUM BICARBONATE PO SCH ×2 (11:01→21:46)
[2019-01-26] MEDS: PROTONIX PO SCH (11:02)
[2019-01-26] MEDS: BABY ASPIRIN PO SCH (11:02)
[2019-01-26] MEDS: SODIUM CHLORIDE FLUSH SYRINGE 10 ML IV SCH ×2 (11:02→21:49)
[2019-01-26] MEDS: ROCALTROL PO SCH (11:12)
[2019-01-26] MEDS: ALDACTONE PO SCH (11:12)
[2019-01-26] MEDS: COREG PO SCH ×2 (11:12→21:46)
--- NOTE | 2019-01-26 18:07 | Progress Note ---
Assessment and Plan /CHFrEF with acute exacerbation - 2d echo showed Ef ~15% -likely cardiorenal syndrome -strict I&O, daily weights, optimize meds, cardiology following, - volume mx per HD, cont on aspirin/statin - stress test showed no ischemia- outpt f/u /LORRI with possible progression to end-stage renal disease mgt per nephrology, hold metformin Started on HD since 01/23 with permcath continue hemodialysis MWF per renal will need outpt HD setup /Hypertension, cont BP meds and adjust as needed - Labetalol 20mg IV prn systolic >180 /Hyperlipidemia, cont statin /Diabetes mellitus type 2 Continue SSI, a1c 6.7 /hypocalcemia, Hypocalcemia in the setting of probable chronic kidney disease and vitamin D deficiency vitamin D level is 7 - started replacement Also initiated calcitriol /Hyperparathyroidism Markedly elevated PTH consistent with chronic kidney disease and also vitamin D deficiency contiue calcitriol 0.5mcg daily. getting vitamin D replacement /dvt ppx- heparin Disposition: d/c when outpt HD set up available Brief history: 63-year-old man admitted with shortness of breath and lower extremity edema. He presented to the emergency room last week with similar symptoms, but refused to stay in hospital and discharged himself AGAINST MEDICAL ADVICE. On this presentation, his symptoms worsened, chest x-ray in the emergency room revealed severe pulmonary edema with near whiteout of bilateral lung boudreaux,which is worse than previous CXR. In addition, there is marked cardiomegaly. In the ER there was severe renal failure with a creatinine of 7.6. The patient denies any history of cardiac or renal disease. admitted for further evaluation and management. Hospitalist physical: GENERAL: well-developed and well-nourished AAM lying on bed appeared to be in no discomfort. HEENT: Normocephalic. Atraumatic. No conjunctival congestion or icterus. Patient has moist mucous membranes. NECK: Supple. Trachea midline. CHEST/LUNGS: Clear to auscultated bilaterally, breathing nonlabored. No wheezes crackles or rhonchi. HEART/CARDIOVASCULAR: Regular in rate and rhythm. S1 and S2 positive. ABDOMEN: Abdomen is soft, nontender. Patient has normal bowel sounds. SKIN: There is no rash. Warm and dry. NEURO: No focal motor deficit. Follows command. MUSCULOSKELETAL: No joint effusion or tenderness. EXTRIMITY: No edema, no cyanosis or clubbing. PSYCH: Cooperative. Subjective Date of service: 01/26/19 Principal diagnosis: Cardiomyopathy Interval history: Patient seen and examined. Medical records and medication list reviewed. No acute event overnight noted by the RN. Patient denies any chest pain or difficulty breathing. Patient is tolerating diet. Denies any new complaints, need dialysis set up as outpatient Discussed plan of care at bedside with patient. Objective - Constitutional Vitals: Vital Signs - 12hr 01/26/19 01/26/19 01/26/19 07:16 11:02 15:50 Temperature 98.8 F 98.4 F 98.6 F Pulse Rate 82 82 85 Respiratory 18 18 18 Rate Blood Pressure 96/58 87/41 109/76 O2 Sat by Pulse 94 95 95 Oximetry - Labs CBC & Chem 7: 01/27/19 06:41 01/27/19 06:41 Labs: Abnormal lab results 01/25/19 01/25/19 01/26/19 Range/Units 18:51 21:39 04:35 Chloride 96.9 L (98-107) mmol/L BUN 38 H (9-20) mg/dL Creatinine 6.2 H (0.8-1.5) mg/dL Glucose 129 H (75-100) mg/dL POC Glucose 146 H 178 H (70-105) Calcium 6.2 L (8.4-10.2) mg/dL Magnesium (1.7-2.3) mg/dL 01/26/19 01/26/19 01/26/19 Range/Units 07:23 10:21 11:08 Chloride (98-107) mmol/L BUN (9-20) mg/dL Creatinine (0.8-1.5) mg/dL Glucose (75-100) mg/dL POC Glucose 112 H 187 H (70-105) Calcium (8.4-10.2) mg/dL Magnesium 1.50 L (1.7-2.3) mg/dL 01/26/19 Range/Units 15:57 Chloride (98-107) mmol/L BUN (9-20) mg/dL Creatinine (0.8-1.5) mg/dL Glucose (75-100) mg/dL POC Glucose 141 H (70-105) Calcium (8.4-10.2) mg/dL Magnesium (1.7-2.3) mg/dL
[2019-01-26] MEDS: ULTRAM PO PRN (21:46)
[2019-01-27 08:31] LABS: Basophils # (Auto) 0.1 K/mm3 (0.0-0.1); Basophils % (Auto) 1.1 % (0.0-1.8); Eosinophils # (Auto) 0.3 K/mm3 (0.0-0.4); Eosinophils % (Auto) 3.3 % (0.0-4.3); Hematocrit 29.6 % (35.5-45.6); Lymphocytes # (Auto) 3.8 K/mm3 (1.2-5.4); Lymphocytes % (Auto) 36.5 % (13.4-35.0); Mean Corpuscular HGB Conc 30 % (32-34); Platelet Count 369 K/mm3 (140-440); Red Blood Count 4.35 M/mm3 (3.65-5.03); Red Cell Distribution Width 16.7 % (13.2-15.2)
[2019-01-27 08:46] LABS: Mean Corpuscular Volume 68 fl (84-94)
[2019-01-27 08:55] LABS: Calcium 6.1 mg/dL (8.4-10.2)
[2019-01-27] MEDS ORDERED: MAGNESIUM SULFATE 2GM/50ML 2 GM/50 ML BAG IV ONE (08:58)
--- NOTE | 2019-01-27 09:01 | Progress Note ---
Assessment and Plan Impression: * ESRD * Dilated cardiomyopathy * HTN * Hypocalcemia * cardiorenal syndrome * acute on chr sys HF Plan: * continue hd, qMWF * uf as tolerated * reduce bp meds due to hypertension * strict i/os * await hd unit placement * renal diet/fluid restriction * replete calcium, TUMS tid, continue vit d and calcitriol Subjective Date of service: 01/27/19 Principal diagnosis: Cardiomyopathy Interval history: resting well in bed today Objective - Exam Narrative Exam: General appearance: well-developed, well-nourished EENT: ATNC, PERRL, mucous membranes moist Neck: no JVD Respiratory: Present: Decreased Breath Sounds Cardiology: regular, S1S2 Gastrointestinal: normal, normoactive bowel sounds Integumentary: no rash Neurologic: alert and oriented x3, CN 3-12 intact Psychiatric: mood/affect appropriate - Vital Signs Vital signs: Vital Signs - 12hr 01/26/19 01/26/19 01/27/19 23:18 23:19 04:27 Temperature 98.6 F Pulse Rate 89 85 Respiratory 20 20 Rate Blood Pressure 116/80 108/79 O2 Sat by Pulse 94 95 Oximetry 01/27/19 04:28 Temperature 98.3 F Pulse Rate Respiratory Rate Blood Pressure O2 Sat by Pulse Oximetry - Lab 01/27/19 06:41 01/27/19 06:41 Most recent lab results Calcium 6.1 mg/dL (8.4-10.2) L 01/27/19 06:41 Magnesium 1.50 mg/dL (1.7-2.3) L 01/26/19 10:21 48.5 mg/dL (0.1-20.0) H 01/22/19 16:08 81 mmol/L 01/21/19 13:00 330 mg/dL (5-11.8) H 01/22/19 16:08 Medications & Allergies - Medications Allergies/Adverse Reactions: Allergies No Known Allergies Allergy (Verified 01/21/19 09:02) Home Medications: Home Medications Medication Instructions Recorded Confirmed Last Taken Type traMADol [Ultram] 50 mg PO Q6HR PRN #7 tablet 01/17/19 01/21/19 Unknown Rx AtorvaSTATin [Lipitor] 10 mg PO DAILY 01/21/19 01/21/19 Unknown History hydroCHLOROthiazide [HCTZ] 25 mg PO QDAY 01/21/19 01/21/19 Unknown History metFORMIN [Glucophage] 500 mg PO QDAY 01/21/19 01/21/19 Unknown History Active Medications: Generic Name Dose Route Start Last Admin Trade Name Freq PRN Reason Stop Dose Admin Acetaminophen 650 mg 01/21/19 12:52 Tylenol PO Q4H PRN Pain MILD(1-3)/Fever >100.5/MANE Aspirin 81 mg 01/24/19 17:00 01/26/19 11:02 Baby Aspirin PO 81 mg QDAY [facility]AN[facility] Administration Atorvastatin Calcium 10 mg 01/22/19 10:00 01/26/19 11:01 Lipitor PO 10 mg DAILY [facility] Administration Calcitriol 1 mcg 01/26/19 10:07 Rocaltrol PO QDAY [facility] Calcium Carbonate/Glycine 1,000 mg 01/27/19 09:00 Tums PO TID FRANCK Carvedilol 6.25 mg 01/26/19 22:00 01/26/19 21:46 Coreg PO 6.25 mg BID FRANCK Administration Dextrose 50 ml 01/21/19 13:10 D50w (25gm) Syringe IV PRN PRN Hypoglycemia Ergocalciferol 50,000 unit 01/23/19 21:00 01/23/19 22:40 Vitamin D2 PO 50,000 unit [facility] Administration Hydralazine HCl 10 mg 01/21/19 13:10 01/22/19 16:04 Apresoline IV 10 mg Q4HR PRN Administration BP >160/100 Magnesium Sulfate 2 gm in 50 mls @ 25 mls/hr 01/27/19 08:58 Magnesium Sulfate 2gm/50ml IV 01/27/19 10:57 ONCE ONE Insulin Human Lispro 0 unit 01/21/19 16:30 01/26/19 23:19 Humalog SUB-Q Not Given [facility] Protocol Morphine Sulfate 2 mg 01/24/19 03:52 01/25/19 18:43 Morphine IV 2 mg Q4H PRN Administration Pain, Moderate (6-10) Ondansetron HCl 4 mg 01/21/19 12:52 Zofran IV Q8H PRN Nausea And Vomiting Pantoprazole Sodium 40 mg 01/24/19 17:00 01/26/19 11:02 Protonix PO 40 mg QDAY [facility] Administration Sodium Bicarbonate 1,300 mg 01/21/19 22:00 01/26/19 21:46 Sodium Bicarbonate PO 1,300 mg BID [facility]AN[facility] Administration Sodium Chloride 10 ml 01/21/19 22:00 01/26/19 21:49 Sodium Chloride Flush Syringe 10 Ml IV 10 ml BID [facility]ANCK Administration Sodium Chloride 10 ml 01/21/19 12:52 01/24/19 06:18 Sodium Chloride Flush Syringe 10 Ml IV 10 ml PRN PRN Administration LINE FLUSH Tramadol HCl 50 mg 01/21/19 12:52 01/26/19 21:46 Ultram PO 50 mg Q6HR PRN Administration Pain
[2019-01-27] MEDS: BABY ASPIRIN PO SCH (10:28)
[2019-01-27] MEDS: SODIUM BICARBONATE PO SCH ×2 (10:29→22:23)
[2019-01-27] MEDS: SODIUM CHLORIDE FLUSH SYRINGE 10 ML IV SCH ×2 (10:29→22:23)
[2019-01-27] MEDS: HumaLOG SUB-Q SCH ×4 (10:29→22:23)
[2019-01-27] MEDS: COREG PO SCH ×2 (10:29→22:22)
[2019-01-27] MEDS: ROCALTROL PO SCH (10:29)
[2019-01-27] MEDS: PROTONIX PO SCH (10:29)
[2019-01-27] MEDS: TUMS PO SCH ×3 (10:32→22:22)
--- NOTE | 2019-01-27 13:00 | Progress Note ---
Assessment and Plan /CHFrEF with acute exacerbation - 2d echo showed Ef ~15% -likely cardiorenal syndrome -strict I&O, daily weights, optimize meds, cardiology following, - volume mx per HD, cont on aspirin/statin - stress test showed no ischemia- outpt f/u /LORRI with possible progression to end-stage renal disease mgt per nephrology, hold metformin Started on HD since 01/23 with permcath continue hemodialysis MWF per renal will need outpt HD setup /Hypertension, cont BP meds and adjust as needed - Labetalol 20mg IV prn systolic >180 /Hyperlipidemia, cont statin /Diabetes mellitus type 2 Continue SSI, a1c 6.7 /hypocalcemia, Hypocalcemia in the setting of probable chronic kidney disease and vitamin D deficiency vitamin D level is 7 - started replacement Also initiated calcitriol /Hyperparathyroidism Markedly elevated PTH consistent with chronic kidney disease and also vitamin D deficiency contiue calcitriol 0.5mcg daily. getting vitamin D replacement /dvt ppx- heparin Disposition: d/c when outpt HD set up available Brief history: 63-year-old man admitted with shortness of breath and lower extremity edema. He presented to the emergency room last week with similar symptoms, but refused to stay in hospital and discharged himself AGAINST MEDICAL ADVICE. On this presentation, his symptoms worsened, chest x-ray in the emergency room revealed severe pulmonary edema with near whiteout of bilateral lung boudreaux,which is worse than previous CXR. In addition, there is marked cardiomegaly. In the ER there was severe renal failure with a creatinine of 7.6. The patient denies any history of cardiac or renal disease. admitted for further evaluation and management. Hospitalist physical: GENERAL: well-developed and well-nourished AAM lying on bed appeared to be in no discomfort. HEENT: Normocephalic. Atraumatic. No conjunctival congestion or icterus. Patient has moist mucous membranes. NECK: Supple. Trachea midline. CHEST/LUNGS: Clear to auscultated bilaterally, breathing nonlabored. No wheezes crackles or rhonchi. HEART/CARDIOVASCULAR: Regular in rate and rhythm. S1 and S2 positive. ABDOMEN: Abdomen is soft, nontender. Patient has normal bowel sounds. SKIN: There is no rash. Warm and dry. NEURO: No focal motor deficit. Follows command. MUSCULOSKELETAL: No joint effusion or tenderness. EXTRIMITY: No edema, no cyanosis or clubbing. PSYCH: Cooperative. Subjective Date of service: 01/27/19 Principal diagnosis: Cardiomyopathy Interval history: Patient seen and examined. Medical records and medication list reviewed. No acute event overnight noted by the RN. Patient denies any chest pain or difficulty breathing. Patient is tolerating diet. Denies any new complaints, need dialysis set up as outpatient Discussed plan of care at bedside with patient. Objective - Constitutional Vitals: Vital Signs - 12hr 01/27/19 01/27/19 01/27/19 04:27 04:28 07:49 Temperature 98.3 F 98.3 F Pulse Rate 85 78 Respiratory 20 22 Rate Blood Pressure 108/79 110/77 O2 Sat by Pulse 95 96 Oximetry 01/27/19 11:10 Temperature 98.5 F Pulse Rate 73 Respiratory 20 Rate Blood Pressure 110/71 O2 Sat by Pulse 98 Oximetry - Labs CBC & Chem 7: 01/28/19 04:23 01/28/19 04:23 Labs: Abnormal lab results 01/26/19 01/26/19 01/27/19 Range/Units 15:57 21:38 06:41 Hgb 9.0 L (11.8-15.2) gm/dl Hct 29.6 L (35.5-45.6) % MCV 68 L (84-94) fl MCH 21 L (28-32) pg MCHC 30 L (32-34) % RDW 16.7 H (13.2-15.2) % Lymph % (Auto) 36.5 H (13.4-35.0) % [place] % (Auto) 10.0 H (0.0-7.3) % [place] # 1.0 H (0.0-0.8) K/mm3 Chloride (98-107) mmol/L BUN (9-20) mg/dL Creatinine (0.8-1.5) mg/dL Glucose (75-100) mg/dL POC Glucose 141 H 119 H (70-105) Calcium (8.4-10.2) mg/dL 01/27/19 01/27/19 01/27/19 Range/Units 06:41 07:57 11:18 Hgb (11.8-15.2) gm/dl Hct (35.5-45.6) % MCV (84-94) fl MCH (28-32) pg MCHC (32-34) % RDW (13.2-15.2) % Lymph % (Auto) (13.4-35.0) % [place] % (Auto) (0.0-7.3) % [place] # (0.0-0.8) K/mm3 Chloride 94.4 L (98-107) mmol/L BUN 48 H (9-20) mg/dL Creatinine 6.9 H (0.8-1.5) mg/dL Glucose 116 H (75-100) mg/dL POC Glucose 108 H 129 H (70-105) Calcium 6.1 L (8.4-10.2) mg/dL
[2019-01-27] MEDS: ULTRAM PO PRN (22:23)
[2019-01-28] MEDS: ULTRAM PO PRN ×2 (05:59→22:09)
[2019-01-28 06:21] LABS: Basophils # (Auto) 0.1 K/mm3 (0.0-0.1); Basophils % (Auto) 0.8 % (0.0-1.8); Eosinophils # (Auto) 0.3 K/mm3 (0.0-0.4); Eosinophils % (Auto) 2.6 % (0.0-4.3); Hematocrit 28.6 % (35.5-45.6); Hemoglobin 8.8 gm/dl (11.8-15.2); Lymphocytes # (Auto) 3.2 K/mm3 (1.2-5.4); Lymphocytes % (Auto) 32.2 % (13.4-35.0); Mean Corpuscular HGB Conc 31 % (32-34); Mean Corpuscular Volume 68 fl (84-94); Monocytes # (Auto) 1.2 K/mm3 (0.0-0.8); Monocytes % (Auto) 12.3 % (0.0-7.3); Platelet Count 353 K/mm3 (140-440); Red Blood Count 4.24 M/mm3 (3.65-5.03); Red Cell Distribution Width 16.4 % (13.2-15.2)
[2019-01-28 06:43] LABS: Calcium 6.3 mg/dL (8.4-10.2)
[2019-01-28] MEDS: HumaLOG SUB-Q SCH ×4 (08:00→23:00)
--- NOTE | 2019-01-28 08:32 | Progress Note ---
Assessment and Plan Impression: * ESRD * Dilated cardiomyopathy * Acute on chronic systolic heart failure * HTN * Secondary hyperparathyrodism * Hypocalcemia * Cardiorenal syndrome Plan: * Hemodialysis MWF * UF as tolerated * Renal diet * Continue antiHTN medications - Coreg 6.25mg BID; monitor BP * Continue calcitriol while hospitalized * Outpatient HD clinic placement in progress * AM labs Subjective Date of service: 01/28/19 Principal diagnosis: Cardiomyopathy Interval history: Stephany reports that he feels "much, much better". Reports breathing improved. Objective - Vital Signs Vital signs: Vital Signs - 12hr 01/27/19 01/27/19 01/27/19 22:22 22:23 22:24 Temperature Pulse Rate 85 Respiratory 18 18 Rate Respiratory Rate [Back] Blood Pressure 127/87 O2 Sat by Pulse 97 Oximetry 01/27/19 01/27/19 01/28/19 22:30 23:23 00:06 Temperature 98.0 F Pulse Rate 87 Respiratory 20 18 Rate Respiratory 18 Rate [Back] Blood Pressure 95/55 O2 Sat by Pulse 95 Oximetry 01/28/19 01/28/19 01/28/19 04:09 05:59 06:59 Temperature 98.0 F Pulse Rate 84 Respiratory 18 18 18 Rate Respiratory Rate [Back] Blood Pressure 97/58 O2 Sat by Pulse 94 Oximetry 01/28/19 07:25 Temperature 97.5 F L Pulse Rate Respiratory 18 Rate Respiratory Rate [Back] Blood Pressure 118/78 O2 Sat by Pulse Oximetry - General Appearance General appearance: well-developed, well-nourished EENT: ATNC Respiratory: Present: Clear to Ascultation Cardiology: regular, S1S2 Gastrointestinal: normal, no tenderness, no distended Integumentary: warm and dry Neurologic: no focal deficit Musculoskeletal: other (no edema) Psychiatric: cooperative - Lab 01/28/19 04:23 01/28/19 04:23 Most recent lab results Calcium 6.3 mg/dL (8.4-10.2) L 01/28/19 04:23 Magnesium 1.50 mg/dL (1.7-2.3) L 01/26/19 10:21 48.5 mg/dL (0.1-20.0) H 01/22/19 16:08 81 mmol/L 01/21/19 13:00 330 mg/dL (5-11.8) H 01/22/19 16:08 Medications & Allergies - Medications Allergies/Adverse Reactions: Allergies No Known Allergies Allergy (Verified 01/21/19 09:02) Home Medications: Home Medications Medication Instructions Recorded Confirmed Last Taken Type traMADol [Ultram] 50 mg PO Q6HR PRN #7 tablet 01/17/19 01/21/19 Unknown Rx AtorvaSTATin [Lipitor] 10 mg PO DAILY 01/21/19 01/21/19 Unknown History hydroCHLOROthiazide [HCTZ] 25 mg PO QDAY 01/21/19 01/21/19 Unknown History metFORMIN [Glucophage] 500 mg PO QDAY 01/21/19 01/21/19 Unknown History Active Medications: Generic Name Dose Route Start Last Admin Trade Name Freq PRN Reason Stop Dose Admin Acetaminophen 650 mg 01/21/19 12:52 Tylenol PO Q4H PRN Pain MILD(1-3)/Fever >100.5/MANE Aspirin 81 mg 01/24/19 17:00 01/27/19 10:28 Baby Aspirin PO 81 mg QDAY [facility] Administration Atorvastatin Calcium 10 mg 01/22/19 10:00 01/27/19 10:29 Lipitor PO 10 mg DAILY [facility] Administration Calcitriol 1 mcg 01/26/19 10:07 01/27/19 10:29 Rocaltrol PO 1 mcg QDAY [facility] Administration Calcium Carbonate/Glycine 1,000 mg 01/27/19 09:00 01/27/19 22:22 Tums PO 1,000 mg TID [facility] Administration Carvedilol 6.25 mg 01/26/19 22:00 01/27/19 22:22 Coreg PO 6.25 mg BID [facility] Administration Dextrose 50 ml 01/21/19 13:10 D50w (25gm) Syringe IV PRN PRN Hypoglycemia Ergocalciferol 50,000 unit 01/23/19 21:00 01/23/19 22:40 Vitamin D2 PO 50,000 unit We [facility] Administration Hydralazine HCl 10 mg 01/21/19 13:10 01/22/19 16:04 Apresoline IV 10 mg Q4HR PRN Administration BP >160/100 Insulin Human Lispro 0 unit 01/21/19 16:30 01/27/19 22:23 Humalog SUB-Q Not Given A[facility]S COUNT INCLUDES [facility] Protocol Morphine Sulfate 2 mg 01/24/19 03:52 01/25/19 18:43 Morphine IV 2 mg Q4H PRN Administration Pain, Moderate (6-10) Ondansetron HCl 4 mg 01/21/19 12:52 Zofran IV Q8H PRN Nausea And Vomiting Pantoprazole Sodium 40 mg 01/24/19 17:00 01/27/19 10:29 Protonix PO 40 mg QDAY [facility] Administration Sodium Bicarbonate 1,300 mg 01/21/19 22:00 01/27/19 22:23 Sodium Bicarbonate PO 1,300 mg BID [facility] Administration Sodium Chloride 10 ml 01/21/19 22:00 01/27/19 22:23 Sodium Chloride Flush Syringe 10 Ml IV 10 ml BID [facility] Administration Sodium Chloride 10 ml 01/21/19 12:52 01/24/19 06:18 Sodium Chloride Flush Syringe 10 Ml IV 10 ml PRN PRN Administration LINE FLUSH Tramadol HCl 50 mg 01/21/19 12:52 01/28/19 05:59 Ultram PO 50 mg Q6HR PRN Administration Pain
[2019-01-28] MEDS: TUMS PO SCH ×3 (09:11→22:10)
[2019-01-28] MEDS: SODIUM BICARBONATE PO SCH ×2 (10:00→22:09)
[2019-01-28] MEDS: SODIUM CHLORIDE FLUSH SYRINGE 10 ML IV SCH ×2 (10:00→22:11)
[2019-01-28] MEDS: BABY ASPIRIN PO SCH (10:00)
[2019-01-28] MEDS: ROCALTROL PO SCH (10:10)
[2019-01-28] MEDS: PROTONIX PO SCH (12:56)
--- NOTE | 2019-01-28 13:23 | Progress Note ---
Assessment and Plan /CHFrEF with acute exacerbation - 2d echo showed Ef ~15% -likely cardiorenal syndrome -strict I&O, daily weights, optimize meds, cardiology following, - volume mx per HD, cont on aspirin/statin - stress test showed no ischemia- outpt f/u /LORRI with possible progression to end-stage renal disease mgt per nephrology, hold metformin Started on HD since 01/23 with permcath continue hemodialysis MWF per renal will need outpt HD setup /Hypertension, cont BP meds and adjust as needed - Labetalol 20mg IV prn systolic >180 /Hyperlipidemia, cont statin /Diabetes mellitus type 2 Continue SSI, a1c 6.7 /hypocalcemia, Hypocalcemia in the setting of probable chronic kidney disease and vitamin D deficiency vitamin D level is 7 - started replacement Also initiated calcitriol /Hyperparathyroidism Markedly elevated PTH consistent with chronic kidney disease and also vitamin D deficiency contiue calcitriol 0.5mcg daily. getting vitamin D replacement /dvt ppx- heparin Disposition: d/c when outpt HD set up available Brief history: 63-year-old man admitted with shortness of breath and lower extremity edema. He presented to the emergency room last week with similar symptoms, but refused to stay in hospital and discharged himself AGAINST MEDICAL ADVICE. On this presentation, his symptoms worsened, chest x-ray in the emergency room revealed severe pulmonary edema with near whiteout of bilateral lung boudreaux,which is worse than previous CXR. In addition, there is marked cardiomegaly. In the ER there was severe renal failure with a creatinine of 7.6. The patient denied any history of cardiac or renal disease. admitted for further evaluation and management. Started on HD since 01/23, need outpt HD setup. 2d echo showed Ef~15%, stress test was normal - nonischemic cardiomyopathy. Hospitalist physical: GENERAL: well-developed and well-nourished AAM lying on bed appeared to be in no discomfort. HEENT: Normocephalic. Atraumatic. No conjunctival congestion or icterus. Patient has moist mucous membranes. NECK: Supple. Trachea midline. CHEST/LUNGS: Clear to auscultated bilaterally, breathing nonlabored. No wheezes crackles or rhonchi. HEART/CARDIOVASCULAR: Regular in rate and rhythm. S1 and S2 positive. ABDOMEN: Abdomen is soft, nontender. Patient has normal bowel sounds. SKIN: There is no rash. Warm and dry. NEURO: No focal motor deficit. Follows command. MUSCULOSKELETAL: No joint effusion or tenderness. EXTRIMITY: No edema, no cyanosis or clubbing. PSYCH: Cooperative. Subjective Date of service: 01/28/19 Principal diagnosis: Cardiomyopathy Interval history: Patient seen and examined. Medical records and medication list reviewed. No acute event overnight noted by the RN. Patient denies any chest pain or difficulty breathing. Patient is tolerating diet. Denies any new complaints, need dialysis set up as outpatient Discussed plan of care at bedside with patient. Objective - Constitutional Vitals: Vital Signs - 12hr 01/28/19 01/28/19 01/28/19 04:09 05:59 06:59 Temperature 98.0 F Pulse Rate 84 Pulse Rate [ From Monitor] Pulse Rate [ Left Dorsalis Pedis] Pulse Rate [ Left Radial] Pulse Rate [ Right Dorsalis Pedis] Pulse Rate [ Right Radial] Respiratory 18 18 18 Rate Blood Pressure 97/58 O2 Sat by Pulse 94 Oximetry 01/28/19 01/28/19 07:25 10:00 Temperature 97.5 F L Pulse Rate Pulse Rate [ 75 From Monitor] Pulse Rate [ 75 Left Dorsalis Pedis] Pulse Rate [ 75 Left Radial] Pulse Rate [ 75 Right Dorsalis Pedis] Pulse Rate [ 75 Right Radial] Respiratory 18 15 Rate Blood Pressure 118/78 O2 Sat by Pulse 96 Oximetry - Labs CBC & Chem 7: 01/28/19 04:23 01/28/19 04:23 Labs: Abnormal lab results 01/27/19 01/27/19 01/28/19 Range/Units 16:22 20:28 04:23 Hgb 8.8 L (11.8-15.2) gm/dl Hct 28.6 L (35.5-45.6) % MCV 68 L (84-94) fl MCH 21 L (28-32) pg MCHC 31 L (32-34) % RDW 16.4 H (13.2-15.2) % [place] % (Auto) 12.3 H (0.0-7.3) % [place] # 1.2 H (0.0-0.8) K/mm3 Chloride (98-107) mmol/L BUN (9-20) mg/dL Creatinine (0.8-1.5) mg/dL Glucose (75-100) mg/dL POC Glucose 136 H 137 H (70-105) Calcium (8.4-10.2) mg/dL 01/28/19 01/28/19 01/28/19 Range/Units 04:23 07:31 12:08 Hgb (11.8-15.2) gm/dl Hct (35.5-45.6) % MCV (84-94) fl MCH (28-32) pg MCHC (32-34) % RDW (13.2-15.2) % [place] % (Auto) (0.0-7.3) % [place] # (0.0-0.8) K/mm3 Chloride 94.8 L (98-107) mmol/L BUN 55 H (9-20) mg/dL Creatinine 7.3 H (0.8-1.5) mg/dL Glucose 125 H (75-100) mg/dL POC Glucose 141 H 121 H (70-105) Calcium 6.3 L (8.4-10.2) mg/dL
[2019-01-28] MEDS: COREG PO SCH ×2 (14:18→22:10)
[2019-01-28] MEDS ORDERED: NACL 0.9 (PRIMING MACHINE ONLY DIALYSIS) MC ONE ×2 (16:54→17:08)
[2019-01-29 05:59] LABS: Basophils # (Auto) 0.1 K/mm3 (0.0-0.1); Basophils % (Auto) 1.4 % (0.0-1.8); Eosinophils # (Auto) 0.2 K/mm3 (0.0-0.4); Eosinophils % (Auto) 2.3 % (0.0-4.3); Hemoglobin 9.2 gm/dl (11.8-15.2); Lymphocytes # (Auto) 2.9 K/mm3 (1.2-5.4); Lymphocytes % (Auto) 33.2 % (13.4-35.0); Mean Corpuscular HGB Conc 31 % (32-34); Monocytes % (Auto) 11.2 % (0.0-7.3); Platelet Count 329 K/mm3 (140-440); Red Blood Count 4.44 M/mm3 (3.65-5.03); Red Cell Distribution Width 16.8 % (13.2-15.2)
[2019-01-29 06:02] LABS: Mean Corpuscular Volume 68 fl (84-94)
[2019-01-29 06:24] LABS: Calcium 7.4 mg/dL (8.4-10.2)
[2019-01-29] MEDS: TUMS PO SCH ×3 (08:45→22:28)
[2019-01-29] MEDS: HumaLOG SUB-Q SCH ×3 (08:46→22:29)
--- NOTE | 2019-01-29 08:46 | Progress Note ---
Assessment and Plan Impression: * ESRD * Dilated cardiomyopathy * Acute on chronic systolic heart failure * HTN * Secondary hyperparathyrodism * Hypocalcemia * Cardiorenal syndrome Plan: * Hemodialysis MWF * UF as tolerated * Renal diet * Continue antiHTN medications - Coreg 6.25mg BID; monitor BP * Continue calcitriol while hospitalized * Outpatient HD clinic placement in progress * AM labs Subjective Date of service: 01/29/19 Principal diagnosis: Cardiomyopathy Interval history: No acute events overnight Objective - Vital Signs Vital signs: Vital Signs - 12hr 01/28/19 01/28/19 01/29/19 22:10 23:07 04:04 Temperature 99.5 F 98.3 F Pulse Rate 93 H 89 83 Respiratory 18 20 Rate Blood Pressure 142/95 96/58 110/74 O2 Sat by Pulse 93 81 L Oximetry 01/29/19 06:00 Temperature Pulse Rate Respiratory Rate Blood Pressure O2 Sat by Pulse 92 Oximetry - General Appearance General appearance: well-developed, well-nourished EENT: ATNC Respiratory: Present: Clear to Ascultation Cardiology: regular, S1S2 Gastrointestinal: normal, no tenderness, no distended Integumentary: no rash, warm and dry Musculoskeletal: other (no edema) Psychiatric: cooperative - Lab 01/29/19 04:17 01/29/19 04:17 Most recent lab results Calcium 7.4 mg/dL (8.4-10.2) L D 01/29/19 04:17 Magnesium 1.50 mg/dL (1.7-2.3) L 01/26/19 10:21 48.5 mg/dL (0.1-20.0) H 01/22/19 16:08 81 mmol/L 01/21/19 13:00 330 mg/dL (5-11.8) H 01/22/19 16:08 Medications & Allergies - Medications Allergies/Adverse Reactions: Allergies No Known Allergies Allergy (Verified 01/21/19 09:02) Home Medications: Home Medications Medication Instructions Recorded Confirmed Last Taken Type traMADol [Ultram] 50 mg PO Q6HR PRN #7 tablet 01/17/19 01/21/19 Unknown Rx AtorvaSTATin [Lipitor] 10 mg PO DAILY 01/21/19 01/21/19 Unknown History Aspirin [Aspirin BABY CHEW TAB] 81 mg PO QDAY #30 tab.chew 01/28/19 Unknown Rx Calcitriol [Rocaltrol] 1 mcg PO QDAY #30 capsule 01/28/19 Unknown Rx Calcium Carbonate [Tums 500MG CHEW] 1,000 mg PO TID #90 tablet 01/28/19 Unknown Rx Carvedilol [Coreg] 6.25 mg PO BID #60 tablet 01/28/19 Unknown Rx Ergocalciferol [Vitamin D2] 50,000 unit PO We #4 capsule 01/28/19 Unknown Rx Pantoprazole [Protonix TAB] 40 mg PO QDAY #30 tablet 01/28/19 Unknown Rx Sodium Bicarbonate 1,300 mg PO BID #60 tablet 01/28/19 Unknown Rx glipiZIDE [Glucotrol] 5 mg PO BID #60 tablet 01/28/19 Unknown Rx Active Medications: Generic Name Dose Route Start Last Admin Trade Name Freq PRN Reason Stop Dose Admin Acetaminophen 650 mg 01/21/19 12:52 Tylenol PO Q4H PRN Pain MILD(1-3)/Fever >100.5/MANE Aspirin 81 mg 01/24/19 17:00 01/28/19 10:00 Baby Aspirin PO 81 mg QDAY [facility] Administration Atorvastatin Calcium 10 mg 01/22/19 10:00 01/28/19 10:00 Lipitor PO 10 mg DAILY [facility] Administration Calcitriol 1 mcg 01/26/19 10:07 01/28/19 10:10 Rocaltrol PO 1 mcg QDAY [facility] Administration Calcium Carbonate/Glycine 1,000 mg 01/27/19 09:00 01/28/19 22:10 Tums PO 1,000 mg TID [facility]ANCK Administration Carvedilol 6.25 mg 01/26/19 22:00 01/28/19 22:10 Coreg PO 6.25 mg BID [facility] Administration Dextrose 50 ml 01/21/19 13:10 D50w (25gm) Syringe IV PRN PRN Hypoglycemia Ergocalciferol 50,000 unit 01/23/19 21:00 01/23/19 22:40 Vitamin D2 PO 50,000 unit We [facility] Administration Heparin Sodium (Porcine) 5,000 unit 01/29/19 10:00 Heparin SUB-Q Q12HR [facility] Hydralazine HCl 10 mg 01/21/19 13:10 01/22/19 16:04 Apresoline IV 10 mg Q4HR PRN Administration BP >160/100 Insulin Human Lispro 0 unit 01/21/19 16:30 01/28/19 23:00 Humalog SUB-Q Not Given ACHS [facility] Protocol Morphine Sulfate 2 mg 01/24/19 03:52 01/25/19 18:43 Morphine IV 2 mg Q4H PRN Administration Pain, Moderate (6-10) Ondansetron HCl 4 mg 01/21/19 12:52 Zofran IV Q8H PRN Nausea And Vomiting Pantoprazole Sodium 40 mg 01/24/19 17:00 01/28/19 12:56 Protonix PO 40 mg QDAY [facility] Administration Sodium Bicarbonate 1,300 mg 01/21/19 22:00 01/28/19 22:09 Sodium Bicarbonate PO 1,300 mg BID [facility]CK Administration Sodium Chloride 10 ml 01/21/19 22:00 01/28/19 22:11 Sodium Chloride Flush Syringe 10 Ml IV 10 ml BID [facility] Administration Sodium Chloride 10 ml 01/21/19 12:52 01/24/19 06:18 Sodium Chloride Flush Syringe 10 Ml IV 10 ml PRN PRN Administration LINE FLUSH Tramadol HCl 50 mg 01/21/19 12:52 01/28/19 22:09 Ultram PO 50 mg Q6HR PRN Administration Pain
[2019-01-29] MEDS: HEPARIN SUB-Q SCH ×2 (10:23→22:30)
[2019-01-29] MEDS: COREG PO SCH ×2 (10:24→22:30)
[2019-01-29] MEDS: SODIUM BICARBONATE PO SCH ×2 (10:25→22:28)
[2019-01-29] MEDS: ROCALTROL PO SCH (10:25)
[2019-01-29] MEDS: BABY ASPIRIN PO SCH (10:25)
[2019-01-29] MEDS: PROTONIX PO SCH (10:25)
--- NOTE | 2019-01-29 13:57 | Progress Note ---
Assessment and Plan Assessment and plan: 63-year-old man admitted with shortness of breath and lower extremity edema. He presented to the emergency room last week with similar symptoms, but refused to stay in hospital and discharged himself AGAINST MEDICAL ADVICE. On this presentation, his symptoms worsened, chest x-ray in the emergency room revealed severe pulmonary edema with near whiteout of bilateral lung boudreaux,which is worse than previous CXR. In addition, there is marked cardiomegaly. In the ER there was severe renal failure with a creatinine of 7.6. The patient denies any history of cardiac or renal disease. admitted for further evaluation and management. /CHFrEF with acute exacerbation - 2d echo showed Ef ~15% -likely cardiorenal syndrome -strict I&O, daily weights, optimize meds, cardiology following, - volume mx per HD, cont on aspirin/statin - stress test showed no ischemia- outpt f/u /LORRI with possible progression to end-stage renal disease mgt per nephrology, hold metformin Started on HD since 01/23 with permcath continue hemodialysis MWF per renal will need outpt HD setup /Hypertension, cont BP meds and adjust as needed - Labetalol 20mg IV prn systolic >180 /Hyperlipidemia, cont statin /Diabetes mellitus type 2 Continue SSI, a1c 6.7 /hypocalcemia, Hypocalcemia in the setting of probable chronic kidney disease and vitamin D deficiency vitamin D level is 7 - started replacement Also initiated calcitriol Left hip pain Obtain left hip x ray /Hyperparathyroidism Markedly elevated PTH consistent with chronic kidney disease and also vitamin D deficiency contiue calcitriol 0.5mcg daily. getting vitamin D replacement /dvt ppx- heparin Disposition: d/c when outpt HD set up available History Interval history: left hip pain no chest pain Hospitalist Physical - Physical exam Narrative exam: Gen: Not in acute distress, lying in bed,obese HEENT: Normocephalic, atraumatic Neck: supple, no JVD Heart: S1 and S2 reg, no murmurs, rubs or gallop Lungs: Clear, no crackles, no wheeze Abd: soft, non tender, non distended, normal BS Ext: No edema, no clubbing, no cyanosis, Neuro: Awake,alert, moves all ext, non focal - Constitutional Vitals: Temp Pulse Resp BP Pulse Ox 98.1 F 78 18 117/55 97 01/29/19 07:51 07/02/19 07:51 01/29/19 07:51 01/29/19 07:51 01/29/19 10:00 General appearance: Present: no acute distress, obese Results - Labs CBC & Chem 7: 01/29/19 04:17 01/29/19 04:17 Labs: Laboratory Last Values WBC 8.7 K/mm3 (4.5-11.0) 01/29/19 04:17 RBC 4.44 M/mm3 (3.65-5.03) 01/29/19 04:17 Hgb 9.2 gm/dl (11.8-15.2) L 01/29/19 04:17 Hct 30.0 % (35.5-45.6) L 01/29/19 04:17 MCV 68 fl (84-94) L 01/29/19 04:17 MCH 21 pg (28-32) L 01/29/19 04:17 MCHC 31 % (32-34) L 01/29/19 04:17 RDW 16.8 % (13.2-15.2) H 01/29/19 04:17 Plt Count 329 K/mm3 (140-440) 01/29/19 04:17 Lymph % (Auto) 33.2 % (13.4-35.0) 01/29/19 04:17 [place] % (Auto) 11.2 % (0.0-7.3) H 01/29/19 04:17 Eos % (Auto) 2.3 % (0.0-4.3) 01/29/19 04:17 Baso % (Auto) 1.4 % (0.0-1.8) 01/29/19 04:17 Lymph # 2.9 K/mm3 (1.2-5.4) 01/29/19 04:17 [place] # 1.0 K/mm3 (0.0-0.8) H 01/29/19 04:17 Eos # 0.2 K/mm3 (0.0-0.4) 01/29/19 04:17 Baso # 0.1 K/mm3 (0.0-0.1) 01/29/19 04:17 Add Manual Diff Complete 01/23/19 04:15 Total Counted 100 01/23/19 04:15 Seg Neutrophils % 51.9 % (40.0-70.0) 01/29/19 04:17 Seg Neuts % (Manual) 48.0 % (40.0-70.0) 01/23/19 04:15 0 % 01/23/19 04:15 39.0 % (13.4-35.0) H 01/23/19 04:15 Reactive Lymphs % (Man) 0 % 01/23/19 04:15 8.0 % (0.0-7.3) H 01/23/19 04:15 4.0 % (0.0-4.3) 01/23/19 04:15 1.0 % (0.0-1.8) 01/23/19 04:15 0 % 01/23/19 04:15 0 % 01/23/19 04:15 0 % 01/23/19 04:15 0 % 01/23/19 04:15 Nucleated RBC % Not Reportable 01/23/19 04:15 Seg Neutrophils # 4.5 K/mm3 (1.8-7.7) 01/29/19 04:17 Seg Neutrophils # Man 4.4 K/mm3 (1.8-7.7) 01/23/19 04:15 Band Neutrophils # 0.0 K/mm3 01/23/19 04:15 3.5 K/mm3 (1.2-5.4) 01/23/19 04:15 Abs React Lymphs (Man) 0.0 K/mm3 01/23/19 04:15 0.7 K/mm3 (0.0-0.8) 01/23/19 04:15 0.4 K/mm3 (0.0-0.4) 01/23/19 04:15 0.1 K/mm3 (0.0-0.1) 01/23/19 04:15 0.0 K/mm3 01/23/19 04:15 0.0 K/mm3 01/23/19 04:15 0.0 K/mm3 01/23/19 04:15 Blast Cells # 0.0 K/mm3 01/23/19 04:15 WBC Morphology Not Reportable 01/23/19 04:15 Hypersegmented Neuts Not Reportable 01/23/19 04:15 Hyposegmented Neuts Not Reportable 01/23/19 04:15 Hypogranular Neuts Not Reportable 01/23/19 04:15 Not Reportable 01/23/19 04:15 Not Reportable 01/23/19 04:15 Not Reportable 01/23/19 04:15 Not Reportable 01/23/19 04:15 Not Reportable 01/23/19 04:15 Not Reportable 01/23/19 04:15 Not Reportable 01/23/19 04:15 Not Reportable 01/23/19 04:15 Plt Clumps, EDTA Not Reportable 01/23/19 04:15 Not Reportable 01/23/19 04:15 Not Reportable 01/23/19 04:15 Not Reportable 01/23/19 04:15 Plt Morphology Comment Not Reportable 01/23/19 04:15 RBC Morphology Not Reportable 01/23/19 04:15 Dimorphic RBCs Not Reportable 01/23/19 04:15 Not Reportable 01/23/19 04:15 2+ 01/23/19 04:15 Not Reportable 01/23/19 04:15 Not Reportable 01/23/19 04:15 1+ 01/23/19 04:15 Not Reportable 01/23/19 04:15 Not Reportable 01/23/19 04:15 Not Reportable 01/23/19 04:15 Not Reportable 01/23/19 04:15 Not Reportable 01/23/19 04:15 Not Reportable 01/23/19 04:15 Not Reportable 01/23/19 04:15 Not Reportable 01/23/19 04:15 Not Reportable 01/23/19 04:15 Not Reportable 01/23/19 04:15 Not Reportable 01/23/19 04:15 Not Reportable 01/23/19 04:15 Not Reportable 01/23/19 04:15 Not Reportable 01/23/19 04:15 Acanthocytes (Spur) Not Reportable 01/23/19 04:15 Rouleaux Not Reportable 01/23/19 04:15 Not Reportable 01/23/19 04:15 Not Reportable 01/23/19 04:15 Not Reportable 01/23/19 04:15 Not Reportable 01/23/19 04:15 Hem Pathologist Commnt No 01/23/19 04:15 PT 16.4 Sec. (12.2-14.9) H 01/21/19 10:02 INR 1.36 (0.87-1.13) H 01/21/19 10:02 APTT 30.6 Sec. (24.2-36.6) 01/21/19 10:02 Sodium 138 mmol/L (137-145) 01/29/19 04:17 Potassium 4.6 mmol/L (3.6-5.0) 01/29/19 04:17 Chloride 97.2 mmol/L (98-107) L 01/29/19 04:17 Carbon Dioxide 28 mmol/L (22-30) 01/29/19 04:17 17 mmol/L 01/29/19 04:17 BUN 32 mg/dL (9-20) H 01/29/19 04:17 4.8 mg/dL (0.8-1.5) H 01/29/19 04:17 Estimated GFR 15 ml/min 01/29/19 04:17 7 % 01/29/19 04:17 Glucose 96 mg/dL (75-100) 01/29/19 04:17 POC Glucose 128 (70-105) H 01/29/19 11:26 6.7 % (4-6) H 01/22/19 09:19 Calcium 7.4 mg/dL (8.4-10.2) L D 01/29/19 04:17 Magnesium 1.50 mg/dL (1.7-2.3) L 01/26/19 10:21 0.30 mg/dL (0.1-1.2) 01/21/19 10:02 AST 77 units/L (5-40) H 01/21/19 10:02 ALT 62 units/L (7-56) H 01/21/19 10:02 101 units/L (35-129) 01/21/19 10:02 0.092 ng/mL (0.00-0.029) H 01/21/19 10:02 7.6 g/dL (6.3-8.2) 01/21/19 10:02 2.8 g/dL (3.9-5) L 01/21/19 10:02 0.6 % 01/21/19 10:02 <4 ng/mL 01/21/19 20:05 7 ng/mL 01/21/19 20:05 PTH Intact 536.1 pg/mL (15-65) H 01/21/19 10:02 Yellow (Yellow) 01/21/19 13:00 Clear (Clear) 01/21/19 13:00 5.0 (5.0-7.0) 01/21/19 13:00 Ur Specific Burns 1.012 (1.003-1.030) 01/21/19 13:00 >500 mg/dL (Negative) 01/21/19 13:00 Neg mg/dL (Negative) 01/21/19 13:00 Neg mg/dL (Negative) 01/21/19 13:00 Sm (Negative) 01/21/19 13:00 Neg (Negative) 01/21/19 13:00 Neg (Negative) 01/21/19 13:00 < 2.0 mg/dL (<2.0) 01/21/19 13:00 Ur Leukocyte Esterase Neg (Negative) 01/21/19 13:00 9.0 /HPF (0.0-6.0) H 01/21/19 13:00 6.0 /HPF (0.0-6.0) 01/21/19 13:00 U Epithel Cells (Auto) < 1.0 /HPF (0-13.0) 01/21/19 13:00 1+ /HPF (Negative) 01/21/19 13:00 Few /HPF 01/21/19 13:00 48.5 mg/dL (0.1-20.0) H 01/22/19 16:08 58.4 mg/dL (0.1-34.0) H 01/22/19 16:08 Microalb/Creat Ratio 1204.1 ug/mg 01/22/19 16:08 81 mmol/L 01/21/19 13:00 330 mg/dL (5-11.8) H 01/22/19 16:08 Immunofix Electrophor see below 01/21/19 20:08 HOLLY Screen Negative (Negative) 01/21/19 20:07 Proteinase 3 (PR3) Ab <1.0 AI (<1.0) 01/21/19 20:01 Myeloperoxidase Ab <1.0 AI (<1.0) 01/21/19 20:01 107 mg/dL (82-185) 01/21/19 20:01 32 mg/dL (15-53) 01/21/19 20:01 Hepatitis A IgM Ab Non-reactive (NonReactive) 01/23/19 13:30 Hep Bs Antigen Non-reactive (Negative) 01/23/19 13:30 Hep B Core IgM Ab Non-reactive (NonReactive) 01/23/19 13:30 Reactive (NonReactive) A 01/23/19 13:30 Active Medications - Current Medications Current Medications: Generic Name Dose Route Start Last Admin Trade Name Freq PRN Reason Stop Dose Admin Acetaminophen 650 mg 01/21/19 12:52 Tylenol PO Q4H PRN Pain MILD(1-3)/Fever >100.5/MANE Aspirin 81 mg 01/24/19 17:00 01/29/19 10:25 Baby Aspirin PO 81 mg QDAY [facility] Administration Atorvastatin Calcium 10 mg 01/22/19 10:00 01/29/19 10:25 Lipitor PO 10 mg DAILY [facility] Administration Calcitriol 1 mcg 01/26/19 10:07 01/29/19 10:25 Rocaltrol PO 1 mcg QDAY [facility] Administration Calcium Carbonate/Glycine 1,000 mg 01/27/19 09:00 01/29/19 08:45 Tums PO 1,000 mg TID [facility] Administration Carvedilol 6.25 mg 01/26/19 22:00 01/29/19 10:24 Coreg PO 6.25 mg BID [facility] Administration Dextrose 50 ml 01/21/19 13:10 D50w (25gm) Syringe IV PRN PRN Hypoglycemia Ergocalciferol 50,000 unit 01/23/19 21:00 01/23/19 22:40 Vitamin D2 PO 50,000 unit We [facility] Administration Heparin Sodium (Porcine) 5,000 unit 01/29/19 10:00 01/29/19 10:23 Heparin SUB-Q 5,000 unit Q12HR [facility] Administration Hydralazine HCl 10 mg 01/21/19 13:10 01/22/19 16:04 Apresoline IV 10 mg Q4HR PRN Administration BP >160/100 Insulin Human Lispro 0 unit 01/21/19 16:30 01/29/19 08:46 Humalog SUB-Q Not Given ACHS [facility] Protocol Morphine Sulfate 2 mg 01/24/19 03:52 01/25/19 18:43 Morphine IV 2 mg Q4H PRN Administration Pain, Moderate (6-10) Ondansetron HCl 4 mg 01/21/19 12:52 Zofran IV Q8H PRN Nausea And Vomiting Pantoprazole Sodium 40 mg 01/24/19 17:00 01/29/19 10:25 Protonix PO 40 mg QDAY [facility] Administration Sodium Bicarbonate 1,300 mg 01/21/19 22:00 01/29/19 10:25 Sodium Bicarbonate PO 1,300 mg BID [facility] Administration Sodium Chloride 10 ml 01/21/19 22:00 01/28/19 22:11 Sodium Chloride Flush Syringe 10 Ml IV 10 ml BID [facility] Administration Sodium Chloride 10 ml 01/21/19 12:52 01/24/19 06:18 Sodium Chloride Flush Syringe 10 Ml IV 10 ml PRN PRN Administration LINE FLUSH Tramadol HCl 50 mg 01/21/19 12:52 01/28/19 22:09 Ultram PO 50 mg Q6HR PRN Administration Pain Nutrition/Malnutrition Assess - Dietary Evaluation Nutrition/Malnutrition Findings: Nutrition Notes Start: 01/22/19 14:39 Freq: Status: Active Protocol: Document 01/22/19 14:39 TAMEKA (Rec: 01/22/19 14:44 [id number]) Nutrition Notes Need for Assessment generated from: MD Order,Education Initial or Follow up Brief Note Current Diet Cardiac + 1500mL fluid restriction Subjective/Other Information RD consulted for diet education. BP was elevated this am (163/114). Pt very receptive to diet education. #1 Nutrition Diagnosis Food and nutrition-related knowledge deficit Etiology limited exposure to diet education As Evidenced by Signs and Symptoms pt with elevated BP and currently on fluid restriction Nutrition Intervention Teaching Recipient Patient Learning Readiness Good Teaching Methods Discussion,Handout Response to Teaching Verbalize understanding Education Handouts Provided Heart Failure Nutrition Therapy Barriers to Learning No Barriers RD phone number provided Yes Patient aware of follow up options Yes Goal #1 Adhere to low Na diet Anticipated Discharge Needs: Low Na diet Revisit per MD consult or patient Sign Off request:
--- NOTE | 2019-01-29 21:47 | XRay Report ---
XR hip 2-3V LT INDICATION / CLINICAL INFORMATION: left hip pain. COMPARISON: None available. FINDINGS: BONES/JOINT(S): No acute fracture or subluxation. No significant degenerative changes. SOFT TISSUES: No significant abnormality. ADDITIONAL FINDINGS: None. Signer Name: Braulio Giles MD Signed: 01/29/2019 8:42 PM Workstation Name: [id number]
[2019-01-29] MEDS: SODIUM CHLORIDE FLUSH SYRINGE 10 ML IV SCH (22:30)
[2019-01-29] MEDS: ULTRAM PO PRN (23:02)
[2019-01-30 05:42] LABS: Basophils # (Auto) 0.1 K/mm3 (0.0-0.1); Basophils % (Auto) 1.3 % (0.0-1.8); Eosinophils # (Auto) 0.2 K/mm3 (0.0-0.4); Eosinophils % (Auto) 1.7 % (0.0-4.3); Hematocrit 30.5 % (35.5-45.6); Hemoglobin 9.1 gm/dl (11.8-15.2); Lymphocytes # (Auto) 3.4 K/mm3 (1.2-5.4); Lymphocytes % (Auto) 38.7 % (13.4-35.0); Mean Corpuscular HGB Conc 30 % (32-34); Mean Corpuscular Volume 68 fl (84-94); Platelet Count 317 K/mm3 (140-440); Red Cell Distribution Width 16.7 % (13.2-15.2)
[2019-01-30 05:53] LABS: Calcium 7.4 mg/dL (8.4-10.2)
[2019-01-30] MEDS: HumaLOG SUB-Q SCH ×3 (08:13→21:42)
[2019-01-30] MEDS: TUMS PO SCH ×3 (08:13→20:24)
--- NOTE | 2019-01-30 10:53 | Progress Note ---
Assessment and Plan Assessment and plan: 63-year-old man admitted with shortness of breath and lower extremity edema. He presented to the emergency room last week with similar symptoms, but refused to stay in hospital and discharged himself AGAINST MEDICAL ADVICE. On this presentation, his symptoms worsened, chest x-ray in the emergency room revealed severe pulmonary edema with near whiteout of bilateral lung boudreaux,which is worse than previous CXR. In addition, there is marked cardiomegaly. In the ER there was severe renal failure with a creatinine of 7.6. The patient denies any history of cardiac or renal disease. admitted for further evaluation and management. CHFrEF with acute exacerbation - 2d echo showed Ef ~15% -likely cardiorenal syndrome -strict I&O, daily weights, optimize meds, cardiology following, - volume mx per HD, cont on aspirin/statin - stress test showed no ischemia- outpt f/u [facility] with possible progression to end-stage renal disease mgt per nephrology, hold metformin Started on HD since 01/23 with permcath continue hemodialysis MWF per renal will need outpt HD setup Hypertension, cont BP meds and adjust as needed - Labetalol 20mg IV prn systolic >180 Hyperlipidemia, cont statin Diabetes mellitus type 2 Continue SSI, a1c 6.7 hypocalcemia, Hypocalcemia in the setting of probable chronic kidney disease and vitamin D deficiency vitamin D level is 7 - started replacement Also initiated calcitriol Left hip pain Left hip x ray neg Hyperparathyroidism Markedly elevated PTH consistent with chronic kidney disease and also vitamin D deficiency contiue calcitriol 0.5mcg daily. getting vitamin D replacement dvt ppx- heparin Disposition: d/c when outpt HD set up available History Interval history: left hip pain no chest pain Hospitalist Physical - Physical exam Narrative exam: Gen: Not in acute distress, lying in bed,obese HEENT: Normocephalic, atraumatic Neck: supple, no JVD Heart: S1 and S2 reg, no murmurs, rubs or gallop Lungs: Clear, no crackles, no wheeze Abd: soft, non tender, non distended, normal BS Ext: No edema, no clubbing, no cyanosis, Neuro: Awake,alert, moves all ext, non focal - Constitutional Vitals: Temp Pulse Resp BP Pulse Ox 98.3 F 84 16 126/78 98 01/30/19 07:54 01/30/19 07:54 07/03/19 07:54 01/30/19 07:54 01/30/19 08:55 General appearance: Present: no acute distress, obese Results - Labs CBC & Chem 7: 01/30/19 04:48 01/30/19 04:48 Labs: Laboratory Last Values WBC 8.9 K/mm3 (4.5-11.0) 01/30/19 04:48 RBC 4.50 M/mm3 (3.65-5.03) 01/30/19 04:48 Hgb 9.1 gm/dl (11.8-15.2) L 01/30/19 04:48 Hct 30.5 % (35.5-45.6) L 01/30/19 04:48 MCV 68 fl (84-94) L 01/30/19 04:48 MCH 20 pg (28-32) L 01/30/19 04:48 MCHC 30 % (32-34) L 01/30/19 04:48 RDW 16.7 % (13.2-15.2) H 01/30/19 04:48 Plt Count 317 K/mm3 (140-440) 01/30/19 04:48 Lymph % (Auto) 38.7 % (13.4-35.0) H 01/30/19 04:48 Ada % (Auto) 11.0 % (0.0-7.3) H 01/30/19 04:48 Eos % (Auto) 1.7 % (0.0-4.3) 01/30/19 04:48 Baso % (Auto) 1.3 % (0.0-1.8) 01/30/19 04:48 Lymph # 3.4 K/mm3 (1.2-5.4) 01/30/19 04:48 Ada # 1.0 K/mm3 (0.0-0.8) H 01/30/19 04:48 Eos # 0.2 K/mm3 (0.0-0.4) 01/30/19 04:48 Baso # 0.1 K/mm3 (0.0-0.1) 01/30/19 04:48 Add Manual Diff Complete 01/23/19 04:15 Total Counted 100 01/23/19 04:15 Seg Neutrophils % 47.3 % (40.0-70.0) 01/30/19 04:48 Seg Neuts % (Manual) 48.0 % (40.0-70.0) 01/23/19 04:15 0 % 01/23/19 04:15 39.0 % (13.4-35.0) H 01/23/19 04:15 Reactive Lymphs % (Man) 0 % 01/23/19 04:15 8.0 % (0.0-7.3) H 01/23/19 04:15 4.0 % (0.0-4.3) 01/23/19 04:15 1.0 % (0.0-1.8) 01/23/19 04:15 0 % 01/23/19 04:15 0 % 01/23/19 04:15 0 % 01/23/19 04:15 0 % 01/23/19 04:15 Nucleated RBC % Not Reportable 01/23/19 04:15 Seg Neutrophils # 4.2 K/mm3 (1.8-7.7) 01/30/19 04:48 Seg Neutrophils # Man 4.4 K/mm3 (1.8-7.7) 01/23/19 04:15 Band Neutrophils # 0.0 K/mm3 01/23/19 04:15 3.5 K/mm3 (1.2-5.4) 01/23/19 04:15 Abs React Lymphs (Man) 0.0 K/mm3 01/23/19 04:15 0.7 K/mm3 (0.0-0.8) 01/23/19 04:15 0.4 K/mm3 (0.0-0.4) 01/23/19 04:15 0.1 K/mm3 (0.0-0.1) 01/23/19 04:15 0.0 K/mm3 01/23/19 04:15 0.0 K/mm3 01/23/19 04:15 0.0 K/mm3 01/23/19 04:15 Blast Cells # 0.0 K/mm3 01/23/19 04:15 WBC Morphology Not Reportable 01/23/19 04:15 Hypersegmented Neuts Not Reportable 01/23/19 04:15 Hyposegmented Neuts Not Reportable 01/23/19 04:15 Hypogranular Neuts Not Reportable 01/23/19 04:15 Not Reportable 01/23/19 04:15 Not Reportable 01/23/19 04:15 Not Reportable 01/23/19 04:15 Not Reportable 01/23/19 04:15 Not Reportable 01/23/19 04:15 Not Reportable 01/23/19 04:15 Not Reportable 01/23/19 04:15 Not Reportable 01/23/19 04:15 Plt Clumps, EDTA Not Reportable 01/23/19 04:15 Not Reportable 01/23/19 04:15 Not Reportable 01/23/19 04:15 Not Reportable 01/23/19 04:15 Plt Morphology Comment Not Reportable 01/23/19 04:15 RBC Morphology Not Reportable 01/23/19 04:15 Dimorphic RBCs Not Reportable 01/23/19 04:15 Not Reportable 01/23/19 04:15 2+ 01/23/19 04:15 Not Reportable 01/23/19 04:15 Not Reportable 01/23/19 04:15 1+ 01/23/19 04:15 Not Reportable 01/23/19 04:15 Not Reportable 01/23/19 04:15 Not Reportable 01/23/19 04:15 Not Reportable 01/23/19 04:15 Not Reportable 01/23/19 04:15 Not Reportable 01/23/19 04:15 Not Reportable 01/23/19 04:15 Not Reportable 01/23/19 04:15 Not Reportable 01/23/19 04:15 Not Reportable 01/23/19 04:15 Not Reportable 01/23/19 04:15 Not Reportable 01/23/19 04:15 Not Reportable 01/23/19 04:15 Not Reportable 01/23/19 04:15 Acanthocytes (Spur) Not Reportable 01/23/19 04:15 Rouleaux Not Reportable 01/23/19 04:15 Not Reportable 01/23/19 04:15 Not Reportable 01/23/19 04:15 Not Reportable 01/23/19 04:15 Not Reportable 01/23/19 04:15 Hem Pathologist Commnt No 01/23/19 04:15 PT 16.4 Sec. (12.2-14.9) H 01/21/19 10:02 INR 1.36 (0.87-1.13) H 01/21/19 10:02 APTT 30.6 Sec. (24.2-36.6) 01/21/19 10:02 Sodium 137 mmol/L (137-145) 01/30/19 04:48 Potassium 4.6 mmol/L (3.6-5.0) 01/30/19 04:48 Chloride 96.7 mmol/L (98-107) L 01/30/19 04:48 Carbon Dioxide 27 mmol/L (22-30) 01/30/19 04:48 18 mmol/L 01/30/19 04:48 BUN 43 mg/dL (9-20) H 01/30/19 04:48 5.8 mg/dL (0.8-1.5) H 01/30/19 04:48 Estimated GFR 12 ml/min 01/30/19 04:48 7 % 01/30/19 04:48 Glucose 117 mg/dL (75-100) H 01/30/19 04:48 POC Glucose 108 (70-105) H 01/30/19 08:02 6.7 % (4-6) H 01/22/19 09:19 Calcium 7.4 mg/dL (8.4-10.2) L 01/30/19 04:48 Magnesium 1.50 mg/dL (1.7-2.3) L 01/26/19 10:21 0.30 mg/dL (0.1-1.2) 01/21/19 10:02 AST 77 units/L (5-40) H 01/21/19 10:02 ALT 62 units/L (7-56) H 01/21/19 10:02 101 units/L (35-129) 01/21/19 10:02 0.092 ng/mL (0.00-0.029) H 01/21/19 10:02 7.6 g/dL (6.3-8.2) 01/21/19 10:02 2.8 g/dL (3.9-5) L 01/21/19 10:02 0.6 % 01/21/19 10:02 <4 ng/mL 01/21/19 20:05 7 ng/mL 01/21/19 20:05 PTH Intact 536.1 pg/mL (15-65) H 01/21/19 10:02 Yellow (Yellow) 01/21/19 13:00 Clear (Clear) 01/21/19 13:00 5.0 (5.0-7.0) 01/21/19 13:00 Ur Specific [place] 1.012 (1.003-1.030) 01/21/19 13:00 >500 mg/dL (Negative) 01/21/19 13:00 Neg mg/dL (Negative) 01/21/19 13:00 Neg mg/dL (Negative) 01/21/19 13:00 Sm (Negative) 01/21/19 13:00 Neg (Negative) 01/21/19 13:00 Neg (Negative) 01/21/19 13:00 < 2.0 mg/dL (<2.0) 01/21/19 13:00 Ur Leukocyte Esterase Neg (Negative) 01/21/19 13:00 9.0 /HPF (0.0-6.0) H 01/21/19 13:00 6.0 /HPF (0.0-6.0) 01/21/19 13:00 U Epithel Cells (Auto) < 1.0 /HPF (0-13.0) 01/21/19 13:00 1+ /HPF (Negative) 01/21/19 13:00 Few /HPF 01/21/19 13:00 48.5 mg/dL (0.1-20.0) H 01/22/19 16:08 58.4 mg/dL (0.1-34.0) H 01/22/19 16:08 Microalb/Creat Ratio 1204.1 ug/mg 01/22/19 16:08 81 mmol/L 01/21/19 13:00 330 mg/dL (5-11.8) H 01/22/19 16:08 Immunofix Electrophor see below 01/21/19 20:08 HOLLY Screen Negative (Negative) 01/21/19 20:07 Proteinase 3 (PR3) Ab <1.0 AI (<1.0) 01/21/19 20:01 Myeloperoxidase Ab <1.0 AI (<1.0) 01/21/19 20:01 107 mg/dL (82-185) 01/21/19 20:01 32 mg/dL (15-53) 01/21/19 20:01 Hepatitis A IgM Ab Non-reactive (NonReactive) 01/23/19 13:30 Hep Bs Antigen Non-reactive (Negative) 01/23/19 13:30 Hep B Core IgM Ab Non-reactive (NonReactive) 01/23/19 13:30 Reactive (NonReactive) A 01/23/19 13:30 Active Medications - Current Medications Current Medications: Generic Name Dose Route Start Last Admin Trade Name Freq PRN Reason Stop Dose Admin Acetaminophen 650 mg 01/21/19 12:52 Tylenol PO Q4H PRN Pain MILD(1-3)/Fever >100.5/MANE Aspirin 81 mg 01/24/19 17:00 01/29/19 10:25 Baby Aspirin PO 81 mg QDAY FRANCK Administration Atorvastatin Calcium 10 mg 01/22/19 10:00 01/29/19 10:25 Lipitor PO 10 mg DAILY FRANCK Administration Calcitriol 1 mcg 01/26/19 10:07 01/29/19 10:25 Rocaltrol PO 1 mcg QDAY FRANCK Administration Calcium Carbonate/Glycine 1,000 mg 01/27/19 09:00 01/30/19 08:13 Tums PO 1,000 mg TID FRANCK Administration Carvedilol 6.25 mg 01/26/19 22:00 01/29/19 22:30 Coreg PO 6.25 mg BID FRANCK Administration Dextrose 50 ml 01/21/19 13:10 D50w (25gm) Syringe IV PRN PRN Hypoglycemia Ergocalciferol 50,000 unit 01/23/19 21:00 01/23/19 22:40 Vitamin D2 PO 50,000 unit We FRANCK Administration Heparin Sodium (Porcine) 5,000 unit 01/29/19 10:00 01/29/19 22:30 Heparin SUB-Q 5,000 unit Q12HR FRANCK Administration Hydralazine HCl 10 mg 01/21/19 13:10 01/22/19 16:04 Apresoline IV 10 mg Q4HR PRN Administration BP >160/100 Insulin Human Lispro 0 unit 01/21/19 16:30 01/30/19 08:13 Humalog SUB-Q Not Given ACHS [facility] Protocol Morphine Sulfate 2 mg 01/24/19 03:52 01/25/19 18:43 Morphine IV 2 mg Q4H PRN Administration Pain, Moderate (6-10) Ondansetron HCl 4 mg 01/21/19 12:52 Zofran IV Q8H PRN Nausea And Vomiting Pantoprazole Sodium 40 mg 01/24/19 17:00 01/29/19 10:25 Protonix PO 40 mg QDAY FRANCK Administration Sodium Bicarbonate 1,300 mg 01/21/19 22:00 01/29/19 22:28 Sodium Bicarbonate PO 1,300 mg BID FRANCK Administration Sodium Chloride 10 ml 01/21/19 22:00 01/29/19 22:30 Sodium Chloride Flush Syringe 10 Ml IV 10 ml BID FRANCK Administration Sodium Chloride 10 ml 01/21/19 12:52 01/24/19 06:18 Sodium Chloride Flush Syringe 10 Ml IV 10 ml PRN PRN Administration LINE FLUSH Tramadol HCl 50 mg 01/21/19 12:52 01/29/19 23:02 Ultram PO 50 mg Q6HR PRN Administration Pain Nutrition/Malnutrition Assess - Dietary Evaluation Nutrition/Malnutrition Findings: Nutrition Notes Start: 01/22/19 14:39 Freq: Status: Active Protocol: Document 01/22/19 14:39 TAMEKA (Rec: 01/22/19 14:44 [facility]- [id number]) Nutrition Notes Need for Assessment generated from: MD Order,Education Initial or Follow up Brief Note Current Diet Cardiac + 1500mL fluid restriction Subjective/Other Information RD consulted for diet education. BP was elevated this am (163/114). Pt very receptive to diet education. #1 Nutrition Diagnosis Food and nutrition-related knowledge deficit Etiology limited exposure to diet education As Evidenced by Signs and Symptoms pt with elevated BP and currently on fluid restriction Nutrition Intervention Teaching Recipient Patient Learning Readiness Good Teaching Methods Discussion,Handout Response to Teaching Verbalize understanding Education Handouts Provided Heart Failure Nutrition Therapy Barriers to Learning No Barriers RD phone number provided Yes Patient aware of follow up options Yes Goal #1 Adhere to low Na diet Anticipated Discharge Needs: Low Na diet Revisit per MD consult or patient Sign Off request:
[2019-01-30] MEDS: SODIUM BICARBONATE PO SCH ×2 (11:14→21:41)
[2019-01-30] MEDS: ROCALTROL PO SCH (11:14)
[2019-01-30] MEDS: PROTONIX PO SCH (11:14)
[2019-01-30] MEDS: BABY ASPIRIN PO SCH (11:15)
[2019-01-30] MEDS: COREG PO SCH ×2 (11:15→21:43)
[2019-01-30] MEDS: HEPARIN SUB-Q SCH ×2 (11:15→21:42)
[2019-01-30] MEDS ORDERED: NACL 0.9 (PRIMING MACHINE ONLY DIALYSIS) MC ONE (16:47)
--- NOTE | 2019-01-30 20:06 | Progress Note ---
Assessment and Plan Impression: * ESRD * Dilated cardiomyopathy * Acute on chronic systolic heart failure * HTN * Secondary hyperparathyrodism * Hypocalcemia * Cardiorenal syndrome Plan: * Hemodialysis MWF * UF as tolerated * Renal diet * Continue antiHTN medications - Coreg 6.25mg BID; monitor BP * Continue calcitriol while hospitalized * Outpatient HD clinic placement in progress * AM labs Subjective Date of service: 01/30/19 Principal diagnosis: Cardiomyopathy Interval history: Patient has no complaints today Objective - Vital Signs Vital signs: Vital Signs - 12hr 01/30/19 01/30/19 01/30/19 08:55 12:15 12:30 Temperature 98.3 F Pulse Rate 78 68 Respiratory 18 Rate Blood Pressure 125/88 124/69 O2 Sat by Pulse 98 Oximetry 01/30/19 01/30/19 01/30/19 12:45 13:00 13:15 Temperature Pulse Rate 72 64 68 Respiratory Rate Blood Pressure 136/81 128/74 128/76 O2 Sat by Pulse Oximetry 01/30/19 01/30/19 01/30/19 13:30 13:45 14:00 Temperature Pulse Rate 66 68 64 Respiratory Rate Blood Pressure 124/74 122/70 124/74 O2 Sat by Pulse Oximetry 01/30/19 01/30/19 01/30/19 14:15 14:30 14:45 Temperature Pulse Rate 55 L 90 68 Respiratory Rate Blood Pressure 132/75 129/82 138/82 O2 Sat by Pulse Oximetry 01/30/19 01/30/19 01/30/19 15:00 15:15 15:30 Temperature Pulse Rate 72 69 75 Respiratory Rate Blood Pressure 135/84 146/86 149/102 O2 Sat by Pulse Oximetry 01/30/19 01/30/19 01/30/19 15:45 16:45 19:31 Temperature 98.0 F 97.4 F L 99.2 F Pulse Rate 95 H 88 78 Respiratory 18 18 18 Rate Blood Pressure 137/93 129/83 120/80 O2 Sat by Pulse 98 91 Oximetry - General Appearance General appearance: well-developed, well-nourished EENT: ATNC Respiratory: Present: Clear to Ascultation Cardiology: regular, S1S2 Gastrointestinal: normal, no tenderness, no distended Integumentary: warm and dry Psychiatric: cooperative - Lab 01/30/19 04:48 01/30/19 04:48 Most recent lab results Calcium 7.4 mg/dL (8.4-10.2) L 01/30/19 04:48 Magnesium 1.50 mg/dL (1.7-2.3) L 01/26/19 10:21 48.5 mg/dL (0.1-20.0) H 01/22/19 16:08 81 mmol/L 01/21/19 13:00 330 mg/dL (5-11.8) H 01/22/19 16:08 Medications & Allergies - Medications Allergies/Adverse Reactions: Allergies No Known Allergies Allergy (Verified 01/21/19 09:02) Home Medications: Home Medications Medication Instructions Recorded Confirmed Last Taken Type traMADol [Ultram] 50 mg PO Q6HR PRN #7 tablet 01/17/19 01/21/19 Unknown Rx AtorvaSTATin [Lipitor] 10 mg PO DAILY 01/21/19 01/21/19 Unknown History Aspirin [Aspirin BABY CHEW TAB] 81 mg PO QDAY #30 tab.chew 01/28/19 Unknown Rx Calcitriol [Rocaltrol] 1 mcg PO QDAY #30 capsule 01/28/19 Unknown Rx Calcium Carbonate [Tums 500MG CHEW] 1,000 mg PO TID #90 tablet 01/28/19 Unknown Rx Carvedilol [Coreg] 6.25 mg PO BID #60 tablet 01/28/19 Unknown Rx Ergocalciferol [Vitamin D2] 50,000 unit PO We #4 capsule 01/28/19 Unknown Rx Pantoprazole [Protonix TAB] 40 mg PO QDAY #30 tablet 01/28/19 Unknown Rx Sodium Bicarbonate 1,300 mg PO BID #60 tablet 01/28/19 Unknown Rx glipiZIDE [Glucotrol] 5 mg PO BID #60 tablet 01/28/19 Unknown Rx Active Medications: Generic Name Dose Route Start Last Admin Trade Name Freq PRN Reason Stop Dose Admin Acetaminophen 650 mg 01/21/19 12:52 Tylenol PO Q4H PRN Pain MILD(1-3)/Fever >100.5/MANE Aspirin 81 mg 01/24/19 17:00 01/30/19 11:15 Baby Aspirin PO 81 mg QDAY FRANCK Administration Atorvastatin Calcium 10 mg 01/22/19 10:00 01/30/19 11:14 Lipitor PO 10 mg DAILY FRACNK Administration Calcitriol 1 mcg 01/26/19 10:07 01/30/19 11:14 Rocaltrol PO 1 mcg QDAY [facility] Administration Calcium Carbonate/Glycine 1,000 mg 01/27/19 09:00 01/30/19 13:53 Tums PO Not Given TID [facility] Carvedilol 6.25 mg 01/26/19 22:00 01/30/19 11:15 Coreg PO 6.25 mg BID [facility] Administration Dextrose 50 ml 01/21/19 13:10 D50w (25gm) Syringe IV PRN PRN Hypoglycemia Ergocalciferol 50,000 unit 01/23/19 21:00 01/23/19 22:40 Vitamin D2 PO 50,000 unit We [facility] Administration Heparin Sodium (Porcine) 5,000 unit 01/29/19 10:00 01/30/19 11:15 Heparin SUB-Q Not Given Q12HR [facility] Hydralazine HCl 10 mg 01/21/19 13:10 01/22/19 16:04 Apresoline IV 10 mg Q4HR PRN Administration BP >160/100 Insulin Human Lispro 0 unit 01/21/19 16:30 01/30/19 12:00 Humalog SUB-Q Not Given ACHS [facility] Protocol Morphine Sulfate 2 mg 01/24/19 03:52 01/25/19 18:43 Morphine IV 2 mg Q4H PRN Administration Pain, Moderate (6-10) Ondansetron HCl 4 mg 01/21/19 12:52 Zofran IV Q8H PRN Nausea And Vomiting Pantoprazole Sodium 40 mg 01/24/19 17:00 01/30/19 11:14 Protonix PO 40 mg QDAY [facility] Administration Sodium Bicarbonate 1,300 mg 01/21/19 22:00 01/30/19 11:14 Sodium Bicarbonate PO 1,300 mg BID [facility] Administration Sodium Chloride 10 ml 01/21/19 22:00 01/29/19 22:30 Sodium Chloride Flush Syringe 10 Ml IV 10 ml BID FRANCK Administration Sodium Chloride 10 ml 01/21/19 12:52 01/24/19 06:18 Sodium Chloride Flush Syringe 10 Ml IV 10 ml PRN PRN Administration LINE FLUSH Tramadol HCl 50 mg 01/21/19 12:52 01/29/19 23:02 Ultram PO 50 mg Q6HR PRN Administration Pain
[2019-01-30] MEDS: VITAMIN D2 PO SCH (21:41)
[2019-01-30] MEDS: SODIUM CHLORIDE FLUSH SYRINGE 10 ML IV SCH (21:41)
[2019-01-30] MEDS: ULTRAM PO PRN (21:46)
[2019-01-31 06:22] LABS: Calcium 7.4 mg/dL (8.4-10.2)
[2019-01-31 06:40] LABS: Hematocrit 35.6 % (35.5-45.6); Hemoglobin 10.7 gm/dl (11.8-15.2); Lymphocytes % (Auto) 43.3 % (13.4-35.0); Mean Corpuscular HGB Conc 30 % (32-34); Mean Corpuscular Volume 68 fl (84-94); Platelet Count 269 K/mm3 (140-440); Red Blood Count 5.21 M/mm3 (3.65-5.03); Red Cell Distribution Width 17.2 % (13.2-15.2)
[2019-01-31 06:41] LABS: Basophils # (Auto) 0.1 K/mm3 (0.0-0.1); Basophils % (Auto) 1.2 % (0.0-1.8); Eosinophils # (Auto) 0.2 K/mm3 (0.0-0.4); Eosinophils % (Auto) 1.9 % (0.0-4.3); Lymphocytes # (Auto) 3.9 K/mm3 (1.2-5.4); Monocytes # (Auto) 0.8 K/mm3 (0.0-0.8); Monocytes % (Auto) 8.7 % (0.0-7.3)
[2019-01-31] MEDS: HumaLOG SUB-Q SCH ×6 (07:31→22:25)
[2019-01-31] MEDS: SODIUM CHLORIDE FLUSH SYRINGE 10 ML IV SCH ×3 (07:31→22:25)
--- NOTE | 2019-01-31 08:39 | Progress Note ---
Assessment and Plan Assessment and plan: 63-year-old man admitted with shortness of breath and lower extremity edema. He presented to the emergency room last week with similar symptoms, but refused to stay in hospital and discharged himself AGAINST MEDICAL ADVICE. On this presentation, his symptoms worsened, chest x-ray in the emergency room revealed severe pulmonary edema with near whiteout of bilateral lung boudreaux,which is worse than previous CXR. In addition, there is marked cardiomegaly. In the ER there was severe renal failure with a creatinine of 7.6. The patient denies any history of cardiac or renal disease. admitted for further evaluation and management. CHFrEF with acute exacerbation - 2d echo showed Ef ~15% -likely cardiorenal syndrome -strict I&O, daily weights, optimize meds, cardiology following, - volume mx per HD, cont on aspirin/statin - stress test showed no ischemia- outpt f/u [facility] with possible progression to end-stage renal disease mgt per nephrology, hold metformin Started on HD since 01/23 with permcath continue hemodialysis MWF per renal will need outpt HD setup Hypertension, cont BP meds and adjust as needed - Labetalol 20mg IV prn systolic >180 Hyperlipidemia, cont statin Diabetes mellitus type 2 Continue SSI, a1c 6.7 hypocalcemia, Hypocalcemia in the setting of probable chronic kidney disease and vitamin D deficiency vitamin D level is 7 - started replacement Also initiated calcitriol Left hip pain Left hip x ray neg Hyperparathyroidism Markedly elevated PTH consistent with chronic kidney disease and also vitamin D deficiency contiue calcitriol 0.5mcg daily. getting vitamin D replacement dvt ppx- heparin Disposition: d/c when outpt HD set up available History Interval history: left hip pain, improved no chest pain Hospitalist Physical - Physical exam Narrative exam: Gen: Not in acute distress, lying in bed,obese HEENT: Normocephalic, atraumatic Neck: supple, no JVD Heart: S1 and S2 reg, no murmurs, rubs or gallop Lungs: Clear, no crackles, no wheeze Abd: soft, non tender, non distended, normal BS Ext: No edema, no clubbing, no cyanosis, Neuro: Awake,alert, moves all ext, non focal - Constitutional Vitals: Temp Pulse Resp BP Pulse Ox 98.6 F 79 18 116/79 95 01/31/19 07:25 01/31/19 07:25 01/31/19 07:25 01/31/19 07:25 01/31/19 07:25 General appearance: Present: no acute distress, obese Results - Labs CBC & Chem 7: 01/31/19 03:58 01/31/19 03:58 Labs: Laboratory Last Values WBC 9.1 K/mm3 (4.5-11.0) 01/31/19 03:58 RBC 5.21 M/mm3 (3.65-5.03) H 01/31/19 03:58 Hgb 10.7 gm/dl (11.8-15.2) L 01/31/19 03:58 Hct 35.6 % (35.5-45.6) 01/31/19 03:58 MCV 68 fl (84-94) L 01/31/19 03:58 MCH 21 pg (28-32) L 01/31/19 03:58 MCHC 30 % (32-34) L 01/31/19 03:58 RDW 17.2 % (13.2-15.2) H 01/31/19 03:58 Plt Count 269 K/mm3 (140-440) 01/31/19 03:58 Lymph % (Auto) 43.3 % (13.4-35.0) H 01/31/19 03:58 [place] % (Auto) 8.7 % (0.0-7.3) H 01/31/19 03:58 Eos % (Auto) 1.9 % (0.0-4.3) 01/31/19 03:58 Baso % (Auto) 1.2 % (0.0-1.8) 01/31/19 03:58 Lymph # 3.9 K/mm3 (1.2-5.4) 01/31/19 03:58 [place] # 0.8 K/mm3 (0.0-0.8) 01/31/19 03:58 Eos # 0.2 K/mm3 (0.0-0.4) 01/31/19 03:58 Baso # 0.1 K/mm3 (0.0-0.1) 01/31/19 03:58 Add Manual Diff Complete 01/23/19 04:15 Total Counted 100 01/23/19 04:15 Seg Neutrophils % 44.9 % (40.0-70.0) 01/31/19 03:58 Seg Neuts % (Manual) 48.0 % (40.0-70.0) 01/23/19 04:15 0 % 01/23/19 04:15 39.0 % (13.4-35.0) H 01/23/19 04:15 Reactive Lymphs % (Man) 0 % 01/23/19 04:15 8.0 % (0.0-7.3) H 01/23/19 04:15 4.0 % (0.0-4.3) 01/23/19 04:15 1.0 % (0.0-1.8) 01/23/19 04:15 0 % 01/23/19 04:15 0 % 01/23/19 04:15 0 % 01/23/19 04:15 0 % 01/23/19 04:15 Nucleated RBC % Not Reportable 01/23/19 04:15 Seg Neutrophils # 4.1 K/mm3 (1.8-7.7) 01/31/19 03:58 Seg Neutrophils # Man 4.4 K/mm3 (1.8-7.7) 01/23/19 04:15 Band Neutrophils # 0.0 K/mm3 01/23/19 04:15 3.5 K/mm3 (1.2-5.4) 01/23/19 04:15 Abs React Lymphs (Man) 0.0 K/mm3 01/23/19 04:15 0.7 K/mm3 (0.0-0.8) 01/23/19 04:15 0.4 K/mm3 (0.0-0.4) 01/23/19 04:15 0.1 K/mm3 (0.0-0.1) 01/23/19 04:15 0.0 K/mm3 01/23/19 04:15 0.0 K/mm3 01/23/19 04:15 0.0 K/mm3 01/23/19 04:15 Blast Cells # 0.0 K/mm3 01/23/19 04:15 WBC Morphology Not Reportable 01/23/19 04:15 Hypersegmented Neuts Not Reportable 01/23/19 04:15 Hyposegmented Neuts Not Reportable 01/23/19 04:15 Hypogranular Neuts Not Reportable 01/23/19 04:15 Not Reportable 01/23/19 04:15 Not Reportable 01/23/19 04:15 Not Reportable 01/23/19 04:15 Not Reportable 01/23/19 04:15 Not Reportable 01/23/19 04:15 Not Reportable 01/23/19 04:15 Not Reportable 01/23/19 04:15 Not Reportable 01/23/19 04:15 Plt Clumps, EDTA Not Reportable 01/23/19 04:15 Not Reportable 01/23/19 04:15 Not Reportable 01/23/19 04:15 Not Reportable 01/23/19 04:15 Plt Morphology Comment Not Reportable 01/23/19 04:15 RBC Morphology Not Reportable 01/23/19 04:15 Dimorphic RBCs Not Reportable 01/23/19 04:15 Not Reportable 01/23/19 04:15 2+ 01/23/19 04:15 Not Reportable 01/23/19 04:15 Not Reportable 01/23/19 04:15 1+ 01/23/19 04:15 Not Reportable 01/23/19 04:15 Not Reportable 01/23/19 04:15 Not Reportable 01/23/19 04:15 Not Reportable 01/23/19 04:15 Not Reportable 01/23/19 04:15 Not Reportable 01/23/19 04:15 Not Reportable 01/23/19 04:15 Not Reportable 01/23/19 04:15 Not Reportable 01/23/19 04:15 Not Reportable 01/23/19 04:15 Not Reportable 01/23/19 04:15 Not Reportable 01/23/19 04:15 Not Reportable 01/23/19 04:15 Not Reportable 01/23/19 04:15 Acanthocytes (Spur) Not Reportable 01/23/19 04:15 Rouleaux Not Reportable 01/23/19 04:15 Not Reportable 01/23/19 04:15 Not Reportable 01/23/19 04:15 Not Reportable 01/23/19 04:15 Not Reportable 01/23/19 04:15 Hem Pathologist Commnt No 01/23/19 04:15 PT 16.4 Sec. (12.2-14.9) H 01/21/19 10:02 INR 1.36 (0.87-1.13) H 01/21/19 10:02 APTT 30.6 Sec. (24.2-36.6) 01/21/19 10:02 Sodium 137 mmol/L (137-145) 01/31/19 03:58 Potassium 4.8 mmol/L (3.6-5.0) 01/31/19 03:58 Chloride 97.0 mmol/L (98-107) L 01/31/19 03:58 Carbon Dioxide 26 mmol/L (22-30) 01/31/19 03:58 19 mmol/L 01/31/19 03:58 BUN 35 mg/dL (9-20) H 01/31/19 03:58 4.8 mg/dL (0.8-1.5) H 01/31/19 03:58 Estimated GFR 15 ml/min 01/31/19 03:58 7 % 01/31/19 03:58 Glucose 95 mg/dL (75-100) 01/31/19 03:58 POC Glucose 98 (70-105) 01/31/19 07:32 6.7 % (4-6) H 01/22/19 09:19 Calcium 7.4 mg/dL (8.4-10.2) L 01/31/19 03:58 Magnesium 1.50 mg/dL (1.7-2.3) L 01/26/19 10:21 0.30 mg/dL (0.1-1.2) 01/21/19 10:02 AST 77 units/L (5-40) H 01/21/19 10:02 ALT 62 units/L (7-56) H 01/21/19 10:02 101 units/L (35-129) 01/21/19 10:02 0.092 ng/mL (0.00-0.029) H 01/21/19 10:02 7.6 g/dL (6.3-8.2) 01/21/19 10:02 2.8 g/dL (3.9-5) L 01/21/19 10:02 0.6 % 01/21/19 10:02 <4 ng/mL 01/21/19 20:05 7 ng/mL 01/21/19 20:05 PTH Intact 536.1 pg/mL (15-65) H 01/21/19 10:02 Yellow (Yellow) 01/21/19 13:00 Clear (Clear) 01/21/19 13:00 5.0 (5.0-7.0) 01/21/19 13:00 Ur Specific [place] 1.012 (1.003-1.030) 01/21/19 13:00 >500 mg/dL (Negative) 01/21/19 13:00 Neg mg/dL (Negative) 01/21/19 13:00 Neg mg/dL (Negative) 01/21/19 13:00 Sm (Negative) 01/21/19 13:00 Neg (Negative) 01/21/19 13:00 Neg (Negative) 01/21/19 13:00 < 2.0 mg/dL (<2.0) 01/21/19 13:00 Ur Leukocyte Esterase Neg (Negative) 01/21/19 13:00 9.0 /HPF (0.0-6.0) H 01/21/19 13:00 6.0 /HPF (0.0-6.0) 01/21/19 13:00 U Epithel Cells (Auto) < 1.0 /HPF (0-13.0) 01/21/19 13:00 1+ /HPF (Negative) 01/21/19 13:00 Few /HPF 01/21/19 13:00 48.5 mg/dL (0.1-20.0) H 01/22/19 16:08 58.4 mg/dL (0.1-34.0) H 01/22/19 16:08 Microalb/Creat Ratio 1204.1 ug/mg 01/22/19 16:08 81 mmol/L 01/21/19 13:00 330 mg/dL (5-11.8) H 01/22/19 16:08 Immunofix Electrophor see below 01/21/19 20:08 HOLLY Screen Negative (Negative) 01/21/19 20:07 Proteinase 3 (PR3) Ab <1.0 AI (<1.0) 01/21/19 20:01 Myeloperoxidase Ab <1.0 AI (<1.0) 01/21/19 20:01 107 mg/dL (82-185) 01/21/19 20:01 32 mg/dL (15-53) 01/21/19 20:01 Hepatitis A IgM Ab Non-reactive (NonReactive) 01/23/19 13:30 Hep Bs Antigen Non-reactive (Negative) 01/23/19 13:30 Hep B Core IgM Ab Non-reactive (NonReactive) 01/23/19 13:30 Reactive (NonReactive) A 01/23/19 13:30 Active Medications - Current Medications Current Medications: Generic Name Dose Route Start Last Admin Trade Name Freq PRN Reason Stop Dose Admin Acetaminophen 650 mg 01/21/19 12:52 Tylenol PO Q4H PRN Pain MILD(1-3)/Fever >100.5/MANE Aspirin 81 mg 01/24/19 17:00 01/30/19 11:15 Baby Aspirin PO 81 mg QDAY FRANCK Administration Atorvastatin Calcium 10 mg 01/22/19 10:00 01/30/19 11:14 Lipitor PO 10 mg DAILY FRANCK Administration Calcitriol 1 mcg 01/26/19 10:07 01/30/19 11:14 Rocaltrol PO 1 mcg QDAY FRANCK Administration Calcium Carbonate/Glycine 1,000 mg 01/27/19 09:00 01/30/19 20:24 Tums PO 1,000 mg TID FRANCK Administration Carvedilol 6.25 mg 01/26/19 22:00 01/30/19 21:43 Coreg PO 6.25 mg BID FRANCK Administration Dextrose 50 ml 01/21/19 13:10 D50w (25gm) Syringe IV PRN PRN Hypoglycemia Ergocalciferol 50,000 unit 01/23/19 21:00 01/30/19 21:41 Vitamin D2 PO 50,000 unit We FRANCK Administration Heparin Sodium (Porcine) 5,000 unit 01/29/19 10:00 01/30/19 21:42 Heparin SUB-Q 5,000 unit Q12HR FRANCK Administration Hydralazine HCl 10 mg 01/21/19 13:10 01/22/19 16:04 Apresoline IV 10 mg Q4HR PRN Administration BP >160/100 Insulin Human Lispro 0 unit 01/21/19 16:30 01/31/19 08:29 Humalog SUB-Q Not Given ACHS [facility] Protocol Morphine Sulfate 2 mg 01/24/19 03:52 01/25/19 18:43 Morphine IV 2 mg Q4H PRN Administration Pain, Moderate (6-10) Ondansetron HCl 4 mg 01/21/19 12:52 Zofran IV Q8H PRN Nausea And Vomiting Pantoprazole Sodium 40 mg 01/24/19 17:00 01/30/19 11:14 Protonix PO 40 mg QDAY FRANCK Administration Sodium Bicarbonate 1,300 mg 01/21/19 22:00 01/30/19 21:41 Sodium Bicarbonate PO 1,300 mg BID FRANCK Administration Sodium Chloride 10 ml 01/21/19 22:00 01/31/19 07:31 Sodium Chloride Flush Syringe 10 Ml IV Not Given BID FRANCK Sodium Chloride 10 ml 01/21/19 12:52 01/24/19 06:18 Sodium Chloride Flush Syringe 10 Ml IV 10 ml PRN PRN Administration LINE FLUSH Tramadol HCl 50 mg 01/21/19 12:52 01/30/19 21:46 Ultram PO 50 mg Q6HR PRN Administration Pain Nutrition/Malnutrition Assess - Dietary Evaluation Nutrition/Malnutrition Findings: Nutrition Notes Start: 01/22/19 14:39 Freq: Status: Active Protocol: Document 01/22/19 14:39 TAMEKA (Rec: 01/22/19 14:44 [facility] [email or web address]) Nutrition Notes Need for Assessment generated from: MD Order,Education Initial or Follow up Brief Note Current Diet Cardiac + 1500mL fluid restriction Subjective/Other Information RD consulted for diet education. BP was elevated this am (163/114). Pt very receptive to diet education. #1 Nutrition Diagnosis Food and nutrition-related knowledge deficit Etiology limited exposure to diet education As Evidenced by Signs and Symptoms pt with elevated BP and currently on fluid restriction Nutrition Intervention Teaching Recipient Patient Learning Readiness Good Teaching Methods Discussion,Handout Response to Teaching Verbalize understanding Education Handouts Provided Heart Failure Nutrition Therapy Barriers to Learning No Barriers RD phone number provided Yes Patient aware of follow up options Yes Goal #1 Adhere to low Na diet Anticipated Discharge Needs: Low Na diet Revisit per MD consult or patient Sign Off request:
[2019-01-31] MEDS: TUMS PO SCH ×3 (10:09→22:24)
[2019-01-31] MEDS: BABY ASPIRIN PO SCH (10:10)
[2019-01-31] MEDS: SODIUM BICARBONATE PO SCH ×2 (10:10→22:23)
[2019-01-31] MEDS: COREG PO SCH ×2 (10:10→22:24)
[2019-01-31] MEDS: ROCALTROL PO SCH (10:10)
[2019-01-31] MEDS: PROTONIX PO SCH (10:10)
[2019-01-31] MEDS: HEPARIN SUB-Q SCH ×2 (10:12→22:25)
--- NOTE | 2019-01-31 11:11 | Progress Note ---
Subjective Principal diagnosis: Cardiomyopathy Interval history: Patient was seen today for follow-up on multiple renal related issues Events of this hospitalization noted Started on dialysis currently pending placement Dialysis tolerated well Patient denies having any chest pain pressure or shortness of breath Vitals labs intake output medications were reviewed Social history: Reviewed Allergies: Reviewed Family history: Reviewed Physical examination HEENT: Oral mucosa moist no pallor or icterus Neck: Supple no JVD Chest: Clear to auscultation anteriorly CVS: Regular rate and rhythm S1 and S2 heard Abdomen: Soft nontender no suprapubic masses no organomegaly appreciable Extremity: Dry skin less than 1+ peripheral edema Musculoskeletal: No joint effusion noted in knees and ankle Neurological: Alert awake Dermatology: No petechial rashes Psychiatry: No evidence of any agitation and aggression noted Assessment and plan; End-stage renal disease: Patient will continue with hemodialysis on Monday, Monday and Monday schedule, outpatient dialysis clinic currently pending Dilated cardiomyopathy she must comply with fluid restriction sodium restriction and proper diet, Anemia in end-stage renal disease: Monitor hemoglobin and hematocrit, erythropoietin as needed Secondary hyperparathyroidism periodically check phosphorus and PTH level, goal phosphorus less than 5.5 PTH less than 600, educated about renal osteodystrophy, From dialysis perspective hemoglobin is improving 10.7 platelet count 269,000 to monitor and follow potassium is normal BUN 35 creatinine 4.8 calcium 7.4 Check phosphorus as well as intact PTH level, Hypertension and volume: , Adjust medications as needed, ultrafiltration as tolerated keep systolic blood pressure above 100 Malnutrition risk: High please consider high protein diet as well as nutrition follow-up, patient needs at least 1.5 g protein per KG body weight Dialysis access: Currently working well, discussed about monitoring, educated about dialysis access Dietary counseling and education: Done at length to improve outcome with end- stage renal disease Patient was also educated about the hospital related comorbidities Overall prognosis appears to be guarded due to end-stage renal disease, dialysis status and other comorbidities Patient has recently moved from [place] to [place] Patient was adequately counseled and educated regarding multiple renal related issues Pertinent lab findings were discussed with patient and patient does exhibit good understanding of renal issues. We'll continue to follow and make recommendation from renal standpoint Objective - Vital Signs Vital signs: Vital Signs - 12hr 01/30/19 01/31/19 01/31/19 23:43 03:51 04:00 Temperature 98.6 F 98.7 F Pulse Rate 85 83 Respiratory 20 18 Rate Blood Pressure 130/81 128/83 O2 Sat by Pulse 92 83 L 94 Oximetry 01/31/19 07:25 Temperature 98.6 F Pulse Rate 79 Respiratory 18 Rate Blood Pressure 116/79 O2 Sat by Pulse 95 Oximetry - Lab 01/31/19 03:58 01/31/19 03:58 Most recent lab results Calcium 7.4 mg/dL (8.4-10.2) L 01/31/19 03:58 Magnesium 1.50 mg/dL (1.7-2.3) L 01/26/19 10:21 48.5 mg/dL (0.1-20.0) H 01/22/19 16:08 81 mmol/L 01/21/19 13:00 330 mg/dL (5-11.8) H 01/22/19 16:08 Medications & Allergies - Medications Allergies/Adverse Reactions: Allergies No Known Allergies Allergy (Verified 01/21/19 09:02) Home Medications: Home Medications Medication Instructions Recorded Confirmed Last Taken Type traMADol [Ultram] 50 mg PO Q6HR PRN #7 tablet 01/17/19 01/21/19 Unknown Rx AtorvaSTATin [Lipitor] 10 mg PO DAILY 01/21/19 01/21/19 Unknown History Aspirin [Aspirin BABY CHEW TAB] 81 mg PO QDAY #30 tab.chew 01/28/19 Unknown Rx Calcitriol [Rocaltrol] 1 mcg PO QDAY #30 capsule 01/28/19 Unknown Rx Calcium Carbonate [Tums 500MG CHEW] 1,000 mg PO TID #90 tablet 01/28/19 Unknown Rx Carvedilol [Coreg] 6.25 mg PO BID #60 tablet 01/28/19 Unknown Rx Ergocalciferol [Vitamin D2] 50,000 unit PO We #4 capsule 01/28/19 Unknown Rx Pantoprazole [Protonix TAB] 40 mg PO QDAY #30 tablet 01/28/19 Unknown Rx Sodium Bicarbonate 1,300 mg PO BID #60 tablet 01/28/19 Unknown Rx glipiZIDE [Glucotrol] 5 mg PO BID #60 tablet 01/28/19 Unknown Rx Active Medications: Generic Name Dose Route Start Last Admin Trade Name Freq PRN Reason Stop Dose Admin Acetaminophen 650 mg 01/21/19 12:52 Tylenol PO Q4H PRN Pain MILD(1-3)/Fever >100.5/MANE Aspirin 81 mg 01/24/19 17:00 01/31/19 10:10 Baby Aspirin PO 81 mg QDAY FRANCK Administration Atorvastatin Calcium 10 mg 01/22/19 10:00 01/31/19 10:10 Lipitor PO 10 mg DAILY FRANCK Administration Calcitriol 1 mcg 01/26/19 10:07 01/31/19 10:10 Rocaltrol PO 1 mcg QDAY FRANCK Administration Calcium Carbonate/Glycine 1,000 mg 01/27/19 09:00 01/31/19 10:09 Tums PO 1,000 mg TID FRANCK Administration Carvedilol 6.25 mg 01/26/19 22:00 01/31/19 10:10 Coreg PO 6.25 mg BID FRANCK Administration Dextrose 50 ml 01/21/19 13:10 D50w (25gm) Syringe IV PRN PRN Hypoglycemia Ergocalciferol 50,000 unit 01/23/19 21:00 01/30/19 21:41 Vitamin D2 PO 50,000 unit We FRANCK Administration Heparin Sodium (Porcine) 5,000 unit 01/29/19 10:00 01/31/19 10:12 Heparin SUB-Q 5,000 unit Q12HR FRANCK Administration Hydralazine HCl 10 mg 01/21/19 13:10 01/22/19 16:04 Apresoline IV 10 mg Q4HR PRN Administration BP >160/100 Insulin Human Lispro 0 unit 01/21/19 16:30 01/31/19 08:29 Humalog SUB-Q Not Given ACHS [facility] Protocol Morphine Sulfate 2 mg 01/24/19 03:52 01/25/19 18:43 Morphine IV 2 mg Q4H PRN Administration Pain, Moderate (6-10) Ondansetron HCl 4 mg 01/21/19 12:52 Zofran IV Q8H PRN Nausea And Vomiting Pantoprazole Sodium 40 mg 01/24/19 17:00 01/31/19 10:10 Protonix PO 40 mg QDAY FRANCK Administration Sodium Bicarbonate 1,300 mg 01/21/19 22:00 01/31/19 10:10 Sodium Bicarbonate PO 1,300 mg BID FRANCK Administration Sodium Chloride 10 ml 01/21/19 22:00 01/31/19 10:10 Sodium Chloride Flush Syringe 10 Ml IV 10 ml BID FARNCK Administration Sodium Chloride 10 ml 01/21/19 12:52 01/24/19 06:18 Sodium Chloride Flush Syringe 10 Ml IV 10 ml PRN PRN Administration LINE FLUSH Tramadol HCl 50 mg 01/21/19 12:52 01/30/19 21:46 Ultram PO 50 mg Q6HR PRN Administration Pain
[2019-01-31] MEDS: ULTRAM PO PRN (22:24)
[2019-02-01 05:25] LABS: Hematocrit 28.7 % (35.5-45.6); Hemoglobin 8.8 gm/dl (11.8-15.2); Mean Corpuscular HGB Conc 31 % (32-34); Platelet Count 291 K/mm3 (140-440); Red Blood Count 4.25 M/mm3 (3.65-5.03); Red Cell Distribution Width 16.3 % (13.2-15.2)
[2019-02-01 05:39] LABS: Mean Corpuscular Volume 67 fl (84-94)
[2019-02-01 05:47] LABS: Calcium 7.5 mg/dL (8.4-10.2)
[2019-02-01] MEDS: HumaLOG SUB-Q SCH ×4 (08:13→21:43)
[2019-02-01 10:20] LABS: Basophils % (Manual) 0 % (0.0-1.8); Total Cells Counted 100
[2019-02-01 10:21] LABS: Anisocytosis 1+; Hypochromasia 2+; Ovalocytes Few; Platelet Estimate Consistent w Auto; Poikilocytosis 1+; Target Cells 1+
--- NOTE | 2019-02-01 10:59 | Progress Note ---
Assessment and Plan Assessment and plan: 63-year-old man admitted with shortness of breath and lower extremity edema. He presented to the emergency room last week with similar symptoms, but refused to stay in hospital and discharged himself AGAINST MEDICAL ADVICE. On this presentation, his symptoms worsened, chest x-ray in the emergency room revealed severe pulmonary edema with near whiteout of bilateral lung boudreaux,which is worse than previous CXR. In addition, there is marked cardiomegaly. In the ER there was severe renal failure with a creatinine of 7.6. The patient denies any history of cardiac or renal disease. admitted for further evaluation and management. CHFrEF with acute exacerbation - 2d echo showed Ef ~15% -likely cardiorenal syndrome -strict I&O, daily weights, optimize meds, cardiology following, - volume mx per HD, cont on aspirin/statin - stress test showed no ischemia- outpt f/u [facility] with possible progression to end-stage renal disease mgt per nephrology, hold metformin Started on HD since 01/23 with permcath continue hemodialysis MWF per renal will need outpt HD setup Hypertension, cont BP meds and adjust as needed - Labetalol 20mg IV prn systolic >180 Hyperlipidemia, cont statin Diabetes mellitus type 2 Continue SSI, a1c 6.7 hypocalcemia, Hypocalcemia in the setting of probable chronic kidney disease and vitamin D deficiency vitamin D level is 7 - started replacement Also initiated calcitriol Left hip pain Left hip x ray neg Hyperparathyroidism Markedly elevated PTH consistent with chronic kidney disease and also vitamin D deficiency contiue calcitriol 0.5mcg daily. getting vitamin D replacement dvt ppx- heparin Family history of heart disease Disposition: d/c when outpt HD set up available History Interval history: left hip pain, improved no chest pain Hospitalist Physical - Physical exam Narrative exam: Gen: Not in acute distress, lying in bed,obese HEENT: Normocephalic, atraumatic Neck: supple, no JVD Heart: S1 and S2 reg, no murmurs, rubs or gallop Lungs: Clear, no crackles, no wheeze Abd: soft, non tender, non distended, normal BS Ext: No edema, no clubbing, no cyanosis, Neuro: Awake,alert, moves all ext, non focal - Constitutional Vitals: Temp Pulse Resp BP Pulse Ox 98.3 F 82 18 117/81 93 02/01/19 07:44 07/05/19 07:44 02/01/19 07:44 02/01/19 07:44 02/01/19 07:44 General appearance: Present: no acute distress, obese Results - Labs CBC & Chem 7: 02/01/19 04:01 02/01/19 04:01 Labs: Laboratory Last Values WBC 9.3 K/mm3 (4.5-11.0) 02/01/19 04:01 RBC 4.25 M/mm3 (3.65-5.03) 02/01/19 04:01 Hgb 8.8 gm/dl (11.8-15.2) L 02/01/19 04:01 Hct 28.7 % (35.5-45.6) L D 02/01/19 04:01 MCV 67 fl (84-94) L 02/01/19 04:01 MCH 21 pg (28-32) L 02/01/19 04:01 MCHC 31 % (32-34) L 02/01/19 04:01 RDW 16.3 % (13.2-15.2) H 02/01/19 04:01 Plt Count 291 K/mm3 (140-440) 02/01/19 04:01 Lymph % (Auto) 43.3 % (13.4-35.0) H 01/31/19 03:58 Boyle % (Auto) 8.7 % (0.0-7.3) H 01/31/19 03:58 Eos % (Auto) 1.9 % (0.0-4.3) 01/31/19 03:58 Baso % (Auto) 1.2 % (0.0-1.8) 01/31/19 03:58 Lymph # Senior Solutions Engineer 02/01/19 04:01 Boyle # 0.8 K/mm3 (0.0-0.8) 01/31/19 03:58 Eos # 0.2 K/mm3 (0.0-0.4) 01/31/19 03:58 Baso # 0.1 K/mm3 (0.0-0.1) 01/31/19 03:58 Add Manual Diff Complete 02/01/19 04:01 Total Counted 100 02/01/19 04:01 Seg Neutrophils % 44.9 % (40.0-70.0) 01/31/19 03:58 Seg Neuts % (Manual) 60.0 % (40.0-70.0) 02/01/19 04:01 0 % 02/01/19 04:01 26.0 % (13.4-35.0) 02/01/19 04:01 Reactive Lymphs % (Man) 5.0 % 02/01/19 04:01 5.0 % (0.0-7.3) 02/01/19 04:01 4.0 % (0.0-4.3) 02/01/19 04:01 0 % (0.0-1.8) 02/01/19 04:01 0 % 02/01/19 04:01 0 % 02/01/19 04:01 0 % 02/01/19 04:01 0 % 02/01/19 04:01 Nucleated RBC % Not Reportable 02/01/19 04:01 Seg Neutrophils # 4.1 K/mm3 (1.8-7.7) 01/31/19 03:58 Seg Neutrophils # Man 5.6 K/mm3 (1.8-7.7) 02/01/19 04:01 Band Neutrophils # 0.0 K/mm3 02/01/19 04:01 2.4 K/mm3 (1.2-5.4) 02/01/19 04:01 Abs React Lymphs (Man) 0.5 K/mm3 02/01/19 04:01 0.5 K/mm3 (0.0-0.8) 02/01/19 04:01 0.4 K/mm3 (0.0-0.4) 02/01/19 04:01 0.0 K/mm3 (0.0-0.1) 02/01/19 04:01 0.0 K/mm3 02/01/19 04:01 0.0 K/mm3 02/01/19 04:01 0.0 K/mm3 02/01/19 04:01 Blast Cells # 0.0 K/mm3 02/01/19 04:01 WBC Morphology Not Reportable 02/01/19 04:01 Hypersegmented Neuts Not Reportable 02/01/19 04:01 Hyposegmented Neuts Not Reportable 02/01/19 04:01 Hypogranular Neuts Not Reportable 02/01/19 04:01 Not Reportable 02/01/19 04:01 Not Reportable 02/01/19 04:01 Not Reportable 02/01/19 04:01 Not Reportable 02/01/19 04:01 Not Reportable 02/01/19 04:01 Not Reportable 02/01/19 04:01 Consistent w auto 02/01/19 04:01 Not Reportable 02/01/19 04:01 Plt Clumps, EDTA Not Reportable 02/01/19 04:01 Not Reportable 02/01/19 04:01 Not Reportable 02/01/19 04:01 Not Reportable 02/01/19 04:01 Plt Morphology Comment Not Reportable 02/01/19 04:01 RBC Morphology Not Reportable 02/01/19 04:01 Dimorphic RBCs Not Reportable 02/01/19 04:01 Not Reportable 02/01/19 04:01 2+ 02/01/19 04:01 1+ 02/01/19 04:01 1+ 02/01/19 04:01 1+ 02/01/19 04:01 Not Reportable 02/01/19 04:01 Not Reportable 02/01/19 04:01 Not Reportable 02/01/19 04:01 Not Reportable 02/01/19 04:01 1+ 02/01/19 04:01 Not Reportable 02/01/19 04:01 Few 02/01/19 04:01 Not Reportable 02/01/19 04:01 Not Reportable 02/01/19 04:01 Not Reportable 02/01/19 04:01 Not Reportable 02/01/19 04:01 Not Reportable 02/01/19 04:01 Not Reportable 02/01/19 04:01 Few 02/01/19 04:01 Acanthocytes (Spur) Not Reportable 02/01/19 04:01 Rouleaux Not Reportable 02/01/19 04:01 Not Reportable 02/01/19 04:01 Not Reportable 02/01/19 04:01 Not Reportable 02/01/19 04:01 Not Reportable 02/01/19 04:01 Hem Pathologist Commnt No 02/01/19 04:01 PT 16.4 Sec. (12.2-14.9) H 01/21/19 10:02 INR 1.36 (0.87-1.13) H 01/21/19 10:02 APTT 30.6 Sec. (24.2-36.6) 01/21/19 10:02 Sodium 136 mmol/L (137-145) L 02/01/19 04:01 Potassium 4.6 mmol/L (3.6-5.0) 02/01/19 04:01 Chloride 97.1 mmol/L (98-107) L 02/01/19 04:01 Carbon Dioxide 28 mmol/L (22-30) 02/01/19 04:01 16 mmol/L 02/01/19 04:01 BUN 44 mg/dL (9-20) H 02/01/19 04:01 5.6 mg/dL (0.8-1.5) H 02/01/19 04:01 Estimated GFR 13 ml/min 02/01/19 04:01 8 % 02/01/19 04:01 Glucose 110 mg/dL (75-100) H 02/01/19 04:01 POC Glucose 100 (70-105) 02/01/19 07:49 6.7 % (4-6) H 01/22/19 09:19 Calcium 7.5 mg/dL (8.4-10.2) L 02/01/19 04:01 Phosphorus 4.50 mg/dL (2.5-4.5) 01/31/19 14:49 Magnesium 1.50 mg/dL (1.7-2.3) L 01/26/19 10:21 0.30 mg/dL (0.1-1.2) 01/21/19 10:02 AST 77 units/L (5-40) H 01/21/19 10:02 ALT 62 units/L (7-56) H 01/21/19 10:02 101 units/L (35-129) 01/21/19 10:02 0.092 ng/mL (0.00-0.029) H 01/21/19 10:02 7.6 g/dL (6.3-8.2) 01/21/19 10:02 2.8 g/dL (3.9-5) L 01/21/19 10:02 0.6 % 01/21/19 10:02 <4 ng/mL 01/21/19 20:05 7 ng/mL 01/21/19 20:05 PTH Intact 351.1 pg/mL (15-65) H 01/31/19 14:49 Yellow (Yellow) 01/21/19 13:00 Clear (Clear) 01/21/19 13:00 5.0 (5.0-7.0) 01/21/19 13:00 Ur Specific [place] 1.012 (1.003-1.030) 01/21/19 13:00 >500 mg/dL (Negative) 01/21/19 13:00 Neg mg/dL (Negative) 01/21/19 13:00 Neg mg/dL (Negative) 01/21/19 13:00 Sm (Negative) 01/21/19 13:00 Neg (Negative) 01/21/19 13:00 Neg (Negative) 01/21/19 13:00 < 2.0 mg/dL (<2.0) 01/21/19 13:00 Ur Leukocyte Esterase Neg (Negative) 01/21/19 13:00 9.0 /HPF (0.0-6.0) H 01/21/19 13:00 6.0 /HPF (0.0-6.0) 01/21/19 13:00 U Epithel Cells (Auto) < 1.0 /HPF (0-13.0) 01/21/19 13:00 1+ /HPF (Negative) 01/21/19 13:00 Few /HPF 01/21/19 13:00 48.5 mg/dL (0.1-20.0) H 01/22/19 16:08 58.4 mg/dL (0.1-34.0) H 01/22/19 16:08 Microalb/Creat Ratio 1204.1 ug/mg 01/22/19 16:08 81 mmol/L 01/21/19 13:00 330 mg/dL (5-11.8) H 01/22/19 16:08 Immunofix Electrophor see below 01/21/19 20:08 HOLLY Screen Negative (Negative) 01/21/19 20:07 Proteinase 3 (PR3) Ab <1.0 AI (<1.0) 01/21/19 20:01 Myeloperoxidase Ab <1.0 AI (<1.0) 01/21/19 20:01 107 mg/dL (82-185) 01/21/19 20:01 32 mg/dL (15-53) 01/21/19 20:01 Hepatitis A IgM Ab Non-reactive (NonReactive) 01/23/19 13:30 Hep Bs Antigen Non-reactive (Negative) 01/23/19 13:30 Hep B Core IgM Ab Non-reactive (NonReactive) 01/23/19 13:30 Reactive (NonReactive) A 01/23/19 13:30 Active Medications - Current Medications Current Medications: Generic Name Dose Route Start Last Admin Trade Name Freq PRN Reason Stop Dose Admin Acetaminophen 650 mg 01/21/19 12:52 Tylenol PO Q4H PRN Pain MILD(1-3)/Fever >100.5/MANE Aspirin 81 mg 01/24/19 17:00 01/31/19 10:10 Baby Aspirin PO 81 mg QDAY FRANCK Administration Atorvastatin Calcium 10 mg 01/22/19 10:00 01/31/19 10:10 Lipitor PO 10 mg DAILY FRANCK Administration Calcitriol 1 mcg 01/26/19 10:07 01/31/19 10:10 Rocaltrol PO 1 mcg QDAY FRANCK Administration Calcium Carbonate/Glycine 1,000 mg 01/27/19 09:00 01/31/19 22:24 Tums PO 1,000 mg TID FRANCK Administration Carvedilol 6.25 mg 01/26/19 22:00 01/31/19 22:24 Coreg PO 6.25 mg BID FRANCK Administration Dextrose 50 ml 01/21/19 13:10 D50w (25gm) Syringe IV PRN PRN Hypoglycemia Ergocalciferol 50,000 unit 01/23/19 21:00 01/30/19 21:41 Vitamin D2 PO 50,000 unit We FRANCK Administration Heparin Sodium (Porcine) 5,000 unit 01/29/19 10:00 01/31/19 22:25 Heparin SUB-Q 5,000 unit Q12HR FRANCK Administration Hydralazine HCl 10 mg 01/21/19 13:10 01/22/19 16:04 Apresoline IV 10 mg Q4HR PRN Administration BP >160/100 Insulin Human Lispro 0 unit 01/21/19 16:30 02/01/19 08:13 Humalog SUB-Q Not Given ACHS [facility] Protocol Morphine Sulfate 2 mg 01/24/19 03:52 01/25/19 18:43 Morphine IV 2 mg Q4H PRN Administration Pain, Moderate (6-10) Ondansetron HCl 4 mg 01/21/19 12:52 Zofran IV Q8H PRN Nausea And Vomiting Pantoprazole Sodium 40 mg 01/24/19 17:00 01/31/19 10:10 Protonix PO 40 mg QDAY FRANCK Administration Sodium Bicarbonate 1,300 mg 01/21/19 22:00 01/31/19 22:23 Sodium Bicarbonate PO 1,300 mg BID FRANCK Administration Sodium Chloride 10 ml 01/21/19 22:00 01/31/19 22:25 Sodium Chloride Flush Syringe 10 Ml IV 10 ml BID FRANCK Administration Sodium Chloride 10 ml 01/21/19 12:52 01/24/19 06:18 Sodium Chloride Flush Syringe 10 Ml IV 10 ml PRN PRN Administration LINE FLUSH Tramadol HCl 50 mg 01/21/19 12:52 01/31/19 22:24 Ultram PO 50 mg Q6HR PRN Administration Pain Nutrition/Malnutrition Assess - Dietary Evaluation Nutrition/Malnutrition Findings: Nutrition Notes Start: 01/22/19 14:39 Freq: Status: Active Protocol: Document 01/22/19 14:39 TAMEKA (Rec: 01/22/19 14:44 [facility]- [id number]) Nutrition Notes Need for Assessment generated from: MD Order,Education Initial or Follow up Brief Note Current Diet Cardiac + 1500mL fluid restriction Subjective/Other Information RD consulted for diet education. BP was elevated this am (163/114). Pt very receptive to diet education. #1 Nutrition Diagnosis Food and nutrition-related knowledge deficit Etiology limited exposure to diet education As Evidenced by Signs and Symptoms pt with elevated BP and currently on fluid restriction Nutrition Intervention Teaching Recipient Patient Learning Readiness Good Teaching Methods Discussion,Handout Response to Teaching Verbalize understanding Education Handouts Provided Heart Failure Nutrition Therapy Barriers to Learning No Barriers RD phone number provided Yes Patient aware of follow up options Yes Goal #1 Adhere to low Na diet Anticipated Discharge Needs: Low Na diet Revisit per MD consult or patient Sign Off request:
--- NOTE | 2019-02-01 11:17 | Progress Note ---
Assessment and Plan Impression: * ESRD * Dilated cardiomyopathy * Acute on chronic systolic heart failure * HTN * Secondary hyperparathyrodism * Hypocalcemia * Cardiorenal syndrome Plan: * Hemodialysis MWF * UF as tolerated * Renal diet * Continue antiHTN medications - Coreg 6.25mg BID; monitor BP * Continue calcitriol while hospitalized * Outpatient HD clinic placement in progress * AM labs Subjective Date of service: 02/01/19 Principal diagnosis: Cardiomyopathy Interval history: Patient has no complaints today. Objective - Vital Signs Vital signs: Vital Signs - 12hr 01/31/19 02/01/19 02/01/19 23:51 04:45 07:44 Temperature 98.4 F 98.5 F 98.3 F Pulse Rate 88 78 82 Respiratory 20 20 18 Rate Blood Pressure 119/81 127/79 117/81 O2 Sat by Pulse 93 75 L 93 Oximetry - General Appearance General appearance: well-developed, well-nourished EENT: ATNC Respiratory: Present: Clear to Ascultation Cardiology: regular, S1S2 Gastrointestinal: normal, no tenderness, no distended Integumentary: no rash, warm and dry Neurologic: no focal deficit Psychiatric: cooperative - Lab 02/01/19 04:01 02/01/19 04:01 Most recent lab results Calcium 7.5 mg/dL (8.4-10.2) L 02/01/19 04:01 Phosphorus 4.50 mg/dL (2.5-4.5) 01/31/19 14:49 Magnesium 1.50 mg/dL (1.7-2.3) L 01/26/19 10:21 48.5 mg/dL (0.1-20.0) H 01/22/19 16:08 81 mmol/L 01/21/19 13:00 330 mg/dL (5-11.8) H 01/22/19 16:08 Medications & Allergies - Medications Allergies/Adverse Reactions: Allergies No Known Allergies Allergy (Verified 01/21/19 09:02) Home Medications: Home Medications Medication Instructions Recorded Confirmed Last Taken Type traMADol [Ultram] 50 mg PO Q6HR PRN #7 tablet 01/17/19 01/21/19 Unknown Rx AtorvaSTATin [Lipitor] 10 mg PO DAILY 01/21/19 01/21/19 Unknown History Aspirin [Aspirin BABY CHEW TAB] 81 mg PO QDAY #30 tab.chew 01/28/19 Unknown Rx Calcitriol [Rocaltrol] 1 mcg PO QDAY #30 capsule 01/28/19 Unknown Rx Calcium Carbonate [Tums 500MG CHEW] 1,000 mg PO TID #90 tablet 01/28/19 Unknown Rx Carvedilol [Coreg] 6.25 mg PO BID #60 tablet 01/28/19 Unknown Rx Ergocalciferol [Vitamin D2] 50,000 unit PO We #4 capsule 01/28/19 Unknown Rx Pantoprazole [Protonix TAB] 40 mg PO QDAY #30 tablet 01/28/19 Unknown Rx Sodium Bicarbonate 1,300 mg PO BID #60 tablet 01/28/19 Unknown Rx glipiZIDE [Glucotrol] 5 mg PO BID #60 tablet 01/28/19 Unknown Rx Active Medications: Generic Name Dose Route Start Last Admin Trade Name Freq PRN Reason Stop Dose Admin Acetaminophen 650 mg 01/21/19 12:52 Tylenol PO Q4H PRN Pain MILD(1-3)/Fever >100.5/MANE Aspirin 81 mg 01/24/19 17:00 01/31/19 10:10 Baby Aspirin PO 81 mg QDAY FRANCK Administration Atorvastatin Calcium 10 mg 01/22/19 10:00 01/31/19 10:10 Lipitor PO 10 mg DAILY FRANCK Administration Calcitriol 1 mcg 01/26/19 10:07 01/31/19 10:10 Rocaltrol PO 1 mcg QDAY FRANCK Administration Calcium Carbonate/Glycine 1,000 mg 01/27/19 09:00 01/31/19 22:24 Tums PO 1,000 mg TID FRANCK Administration Carvedilol 6.25 mg 01/26/19 22:00 01/31/19 22:24 Coreg PO 6.25 mg BID FRANCK Administration Dextrose 50 ml 01/21/19 13:10 D50w (25gm) Syringe IV PRN PRN Hypoglycemia Ergocalciferol 50,000 unit 01/23/19 21:00 01/30/19 21:41 Vitamin D2 PO 50,000 unit We FRANCK Administration Heparin Sodium (Porcine) 5,000 unit 01/29/19 10:00 01/31/19 22:25 Heparin SUB-Q 5,000 unit Q12HR FRANCK Administration Hydralazine HCl 10 mg 01/21/19 13:10 01/22/19 16:04 Apresoline IV 10 mg Q4HR PRN Administration BP >160/100 Insulin Human Lispro 0 unit 01/21/19 16:30 02/01/19 08:13 Humalog SUB-Q Not Given ACHS [facility] Protocol Morphine Sulfate 2 mg 01/24/19 03:52 01/25/19 18:43 Morphine IV 2 mg Q4H PRN Administration Pain, Moderate (6-10) Ondansetron HCl 4 mg 01/21/19 12:52 Zofran IV Q8H PRN Nausea And Vomiting Pantoprazole Sodium 40 mg 01/24/19 17:00 01/31/19 10:10 Protonix PO 40 mg QDAY FRANCK Administration Sodium Bicarbonate 1,300 mg 01/21/19 22:00 01/31/19 22:23 Sodium Bicarbonate PO 1,300 mg BID FRANCK Administration Sodium Chloride 10 ml 01/21/19 22:00 01/31/19 22:25 Sodium Chloride Flush Syringe 10 Ml IV 10 ml BID FRANCK Administration Sodium Chloride 10 ml 01/21/19 12:52 01/24/19 06:18 Sodium Chloride Flush Syringe 10 Ml IV 10 ml PRN PRN Administration LINE FLUSH Tramadol HCl 50 mg 01/21/19 12:52 01/31/19 22:24 Ultram PO 50 mg Q6HR PRN Administration Pain
[2019-02-01] MEDS: TUMS PO SCH ×3 (12:51→21:25)
[2019-02-01] MEDS: BABY ASPIRIN PO SCH (12:53)
[2019-02-01] MEDS: HEPARIN SUB-Q SCH ×2 (12:53→21:26)
[2019-02-01] MEDS: ROCALTROL PO SCH (12:53)
[2019-02-01] MEDS: COREG PO SCH ×2 (12:54→21:25)
[2019-02-01] MEDS: SODIUM BICARBONATE PO SCH ×2 (12:54→21:25)
[2019-02-01] MEDS: SODIUM CHLORIDE FLUSH SYRINGE 10 ML IV SCH ×2 (12:55→21:26)
[2019-02-01] MEDS: PROTONIX PO SCH (15:01)
[2019-02-01] MEDS: ULTRAM PO PRN (21:29)
[2019-02-02 05:12] LABS: Hematocrit 29.5 % (35.5-45.6); Hemoglobin 9.1 gm/dl (11.8-15.2); Mean Corpuscular HGB Conc 31 % (32-34); Platelet Count 253 K/mm3 (140-440); Red Blood Count 4.36 M/mm3 (3.65-5.03); Red Cell Distribution Width 16.2 % (13.2-15.2)
[2019-02-02 05:22] LABS: Mean Corpuscular Volume 68 fl (84-94)
[2019-02-02 05:26] LABS: Calcium 8.6 mg/dL (8.4-10.2)
[2019-02-02 08:33] LABS: Basophils % (Manual) 0 % (0.0-1.8); Total Cells Counted 100
[2019-02-02 08:34] LABS: Hypochromasia 2+; Ovalocytes Rare; Platelet Estimate Consistent w Auto; Target Cells 1+
[2019-02-02] MEDS: TUMS PO SCH ×3 (08:49→21:24)
[2019-02-02] MEDS: HumaLOG SUB-Q SCH ×4 (08:50→22:57)
--- NOTE | 2019-02-02 09:31 | Progress Note ---
Assessment and Plan Assessment and plan: 63-year-old man admitted with shortness of breath and lower extremity edema. He presented to the emergency room last week with similar symptoms, but refused to stay in hospital and discharged himself AGAINST MEDICAL ADVICE. On this presentation, his symptoms worsened, chest x-ray in the emergency room revealed severe pulmonary edema with near whiteout of bilateral lung boudreaux,which is worse than previous CXR. In addition, there is marked cardiomegaly. In the ER there was severe renal failure with a creatinine of 7.6. The patient denies any history of cardiac or renal disease. admitted for further evaluation and management. CHFrEF with acute exacerbation - 2d echo showed Ef ~15% -likely cardiorenal syndrome -strict I&O, daily weights, optimize meds, cardiology following, - volume mx per HD, cont on aspirin/statin - stress test showed no ischemia- outpt f/u [facility] with possible progression to end-stage renal disease mgt per nephrology, hold metformin Started on HD since 01/23 with permcath continue hemodialysis MWF per renal will need outpt HD setup Hypertension, cont BP meds and adjust as needed - Labetalol 20mg IV prn systolic >180 Hyperlipidemia, cont statin Diabetes mellitus type 2 Continue SSI, a1c 6.7 hypocalcemia, Hypocalcemia in the setting of probable chronic kidney disease and vitamin D deficiency vitamin D level is 7 - started replacement Also initiated calcitriol Left hip pain Left hip x ray neg Hyperparathyroidism Markedly elevated PTH consistent with chronic kidney disease and also vitamin D deficiency contiue calcitriol 0.5mcg daily. getting vitamin D replacement dvt ppx- heparin Family history of heart disease Disposition: d/c when outpt HD set up available History Interval history: left hip pain, improved no chest pain Hospitalist Physical - Physical exam Narrative exam: Gen: Not in acute distress, lying in bed,obese HEENT: Normocephalic, atraumatic Neck: supple, no JVD Heart: S1 and S2 reg, no murmurs, rubs or gallop Lungs: Clear, no crackles, no wheeze Abd: soft, non tender, non distended, normal BS Ext: No edema, no clubbing, no cyanosis, Neuro: Awake,alert, moves all ext, non focal - Constitutional Vitals: Temp Pulse Resp BP Pulse Ox 98.9 F 79 20 117/70 93 02/02/19 05:27 07/06/19 05:27 02/02/19 05:27 02/02/19 05:27 02/02/19 05:27 General appearance: Present: no acute distress, obese Results - Labs CBC & Chem 7: 02/02/19 04:51 02/02/19 04:51 Labs: Laboratory Last Values WBC 8.7 K/mm3 (4.5-11.0) 02/02/19 04:51 RBC 4.36 M/mm3 (3.65-5.03) 02/02/19 04:51 Hgb 9.1 gm/dl (11.8-15.2) L 02/02/19 04:51 Hct 29.5 % (35.5-45.6) L 02/02/19 04:51 MCV 68 fl (84-94) L 02/02/19 04:51 MCH 21 pg (28-32) L 02/02/19 04:51 MCHC 31 % (32-34) L 02/02/19 04:51 RDW 16.2 % (13.2-15.2) H 02/02/19 04:51 Plt Count 253 K/mm3 (140-440) 02/02/19 04:51 Lymph % (Auto) 43.3 % (13.4-35.0) H 01/31/19 03:58 [place] % (Auto) 8.7 % (0.0-7.3) H 01/31/19 03:58 Eos % (Auto) 1.9 % (0.0-4.3) 01/31/19 03:58 Baso % (Auto) 1.2 % (0.0-1.8) 01/31/19 03:58 Lymph # Offset Press Operator Apprentice 02/01/19 04:01 Forest # 0.8 K/mm3 (0.0-0.8) 01/31/19 03:58 Eos # 0.2 K/mm3 (0.0-0.4) 01/31/19 03:58 Baso # 0.1 K/mm3 (0.0-0.1) 01/31/19 03:58 Add Manual Diff Complete 02/02/19 04:51 Total Counted 100 02/02/19 04:51 Seg Neutrophils % 44.9 % (40.0-70.0) 01/31/19 03:58 Seg Neuts % (Manual) 66.0 % (40.0-70.0) 02/02/19 04:51 0 % 02/02/19 04:51 23.0 % (13.4-35.0) 02/02/19 04:51 Reactive Lymphs % (Man) 0 % 02/02/19 04:51 8.0 % (0.0-7.3) H 02/02/19 04:51 3.0 % (0.0-4.3) 02/02/19 04:51 0 % (0.0-1.8) 02/02/19 04:51 0 % 02/02/19 04:51 0 % 02/02/19 04:51 0 % 02/02/19 04:51 0 % 02/02/19 04:51 Nucleated RBC % Not Reportable 02/02/19 04:51 Seg Neutrophils # 4.1 K/mm3 (1.8-7.7) 01/31/19 03:58 Seg Neutrophils # Man 5.7 K/mm3 (1.8-7.7) 02/02/19 04:51 Band Neutrophils # 0.0 K/mm3 02/02/19 04:51 2.0 K/mm3 (1.2-5.4) 02/02/19 04:51 Abs React Lymphs (Man) 0.0 K/mm3 02/02/19 04:51 0.7 K/mm3 (0.0-0.8) 02/02/19 04:51 0.3 K/mm3 (0.0-0.4) 02/02/19 04:51 0.0 K/mm3 (0.0-0.1) 02/02/19 04:51 0.0 K/mm3 02/02/19 04:51 0.0 K/mm3 02/02/19 04:51 0.0 K/mm3 02/02/19 04:51 Blast Cells # 0.0 K/mm3 02/02/19 04:51 WBC Morphology Not Reportable 02/02/19 04:51 Hypersegmented Neuts Not Reportable 02/02/19 04:51 Hyposegmented Neuts Not Reportable 02/02/19 04:51 Hypogranular Neuts Not Reportable 02/02/19 04:51 Not Reportable 02/02/19 04:51 Not Reportable 02/02/19 04:51 Not Reportable 02/02/19 04:51 Not Reportable 02/02/19 04:51 Not Reportable 02/02/19 04:51 Not Reportable 02/02/19 04:51 Consistent w auto 02/02/19 04:51 Not Reportable 02/02/19 04:51 Plt Clumps, EDTA Not Reportable 02/02/19 04:51 Not Reportable 02/02/19 04:51 Not Reportable 02/02/19 04:51 Not Reportable 02/02/19 04:51 Plt Morphology Comment Not Reportable 02/02/19 04:51 RBC Morphology Not Reportable 02/02/19 04:51 Dimorphic RBCs Not Reportable 02/02/19 04:51 Not Reportable 02/02/19 04:51 2+ 02/02/19 04:51 Not Reportable 02/02/19 04:51 Not Reportable 02/02/19 04:51 1+ 02/02/19 04:51 Not Reportable 02/02/19 04:51 Not Reportable 02/02/19 04:51 Not Reportable 02/02/19 04:51 Not Reportable 02/02/19 04:51 1+ 02/02/19 04:51 Not Reportable 02/02/19 04:51 Rare 02/02/19 04:51 Not Reportable 02/02/19 04:51 Not Reportable 02/02/19 04:51 Not Reportable 02/02/19 04:51 Not Reportable 02/02/19 04:51 Not Reportable 02/02/19 04:51 Not Reportable 02/02/19 04:51 Not Reportable 02/02/19 04:51 Acanthocytes (Spur) Not Reportable 02/02/19 04:51 Rouleaux Not Reportable 02/02/19 04:51 Not Reportable 02/02/19 04:51 Not Reportable 02/02/19 04:51 Not Reportable 02/02/19 04:51 Not Reportable 02/02/19 04:51 Hem Pathologist Commnt No 02/02/19 04:51 PT 16.4 Sec. (12.2-14.9) H 01/21/19 10:02 INR 1.36 (0.87-1.13) H 01/21/19 10:02 APTT 30.6 Sec. (24.2-36.6) 01/21/19 10:02 Sodium 135 mmol/L (137-145) L 02/02/19 04:51 Potassium 4.8 mmol/L (3.6-5.0) 02/02/19 04:51 Chloride 96.8 mmol/L (98-107) L 02/02/19 04:51 Carbon Dioxide 28 mmol/L (22-30) 02/02/19 04:51 15 mmol/L 02/02/19 04:51 BUN 36 mg/dL (9-20) H 02/02/19 04:51 5.3 mg/dL (0.8-1.5) H 02/02/19 04:51 Estimated GFR 13 ml/min 02/02/19 04:51 7 % 02/02/19 04:51 Glucose 144 mg/dL (75-100) H 02/02/19 04:51 POC Glucose 113 (70-105) H 02/02/19 05:31 6.7 % (4-6) H 01/22/19 09:19 Calcium 8.6 mg/dL (8.4-10.2) 02/02/19 04:51 Phosphorus 4.50 mg/dL (2.5-4.5) 01/31/19 14:49 Magnesium 1.50 mg/dL (1.7-2.3) L 01/26/19 10:21 0.30 mg/dL (0.1-1.2) 01/21/19 10:02 AST 77 units/L (5-40) H 01/21/19 10:02 ALT 62 units/L (7-56) H 01/21/19 10:02 101 units/L (35-129) 01/21/19 10:02 0.092 ng/mL (0.00-0.029) H 01/21/19 10:02 7.6 g/dL (6.3-8.2) 01/21/19 10:02 2.8 g/dL (3.9-5) L 01/21/19 10:02 0.6 % 01/21/19 10:02 <4 ng/mL 01/21/19 20:05 7 ng/mL 01/21/19 20:05 PTH Intact 351.1 pg/mL (15-65) H 01/31/19 14:49 Yellow (Yellow) 01/21/19 13:00 Clear (Clear) 01/21/19 13:00 5.0 (5.0-7.0) 01/21/19 13:00 Ur Specific [place] 1.012 (1.003-1.030) 01/21/19 13:00 >500 mg/dL (Negative) 01/21/19 13:00 Neg mg/dL (Negative) 01/21/19 13:00 Neg mg/dL (Negative) 01/21/19 13:00 Sm (Negative) 01/21/19 13:00 Neg (Negative) 01/21/19 13:00 Neg (Negative) 01/21/19 13:00 < 2.0 mg/dL (<2.0) 01/21/19 13:00 Ur Leukocyte Esterase Neg (Negative) 01/21/19 13:00 9.0 /HPF (0.0-6.0) H 01/21/19 13:00 6.0 /HPF (0.0-6.0) 01/21/19 13:00 U Epithel Cells (Auto) < 1.0 /HPF (0-13.0) 01/21/19 13:00 1+ /HPF (Negative) 01/21/19 13:00 Few /HPF 01/21/19 13:00 48.5 mg/dL (0.1-20.0) H 01/22/19 16:08 58.4 mg/dL (0.1-34.0) H 01/22/19 16:08 Microalb/Creat Ratio 1204.1 ug/mg 01/22/19 16:08 81 mmol/L 01/21/19 13:00 330 mg/dL (5-11.8) H 01/22/19 16:08 Immunofix Electrophor see below 01/21/19 20:08 HOLLY Screen Negative (Negative) 01/21/19 20:07 Proteinase 3 (PR3) Ab <1.0 AI (<1.0) 01/21/19 20:01 Myeloperoxidase Ab <1.0 AI (<1.0) 01/21/19 20:01 107 mg/dL (82-185) 01/21/19 20:01 32 mg/dL (15-53) 01/21/19 20:01 Hepatitis A IgM Ab Non-reactive (NonReactive) 01/23/19 13:30 Hep Bs Antigen Non-reactive (Negative) 01/23/19 13:30 Hep B Core IgM Ab Non-reactive (NonReactive) 01/23/19 13:30 Reactive (NonReactive) A 01/23/19 13:30 Active Medications - Current Medications Current Medications: Generic Name Dose Route Start Last Admin Trade Name Freq PRN Reason Stop Dose Admin Acetaminophen 650 mg 01/21/19 12:52 Tylenol PO Q4H PRN Pain MILD(1-3)/Fever >100.5/MANE Aspirin 81 mg 01/24/19 17:00 02/01/19 12:53 Baby Aspirin PO 81 mg QDAY FRANCK Administration Atorvastatin Calcium 10 mg 01/22/19 10:00 02/01/19 12:53 Lipitor PO 10 mg DAILY FRANCK Administration Calcitriol 1 mcg 01/26/19 10:07 02/01/19 12:53 Rocaltrol PO 1 mcg QDAY FRANCK Administration Calcium Carbonate/Glycine 1,000 mg 01/27/19 09:00 02/02/19 08:49 Tums PO 1,000 mg TID FRANCK Administration Carvedilol 6.25 mg 01/26/19 22:00 02/01/19 21:25 Coreg PO 6.25 mg BID FRANCK Administration Dextrose 50 ml 01/21/19 13:10 D50w (25gm) Syringe IV PRN PRN Hypoglycemia Ergocalciferol 50,000 unit 01/23/19 21:00 01/30/19 21:41 Vitamin D2 PO 50,000 unit We FRANCK Administration Heparin Sodium (Porcine) 5,000 unit 01/29/19 10:00 02/01/19 21:26 Heparin SUB-Q 5,000 unit Q12HR FRANCK Administration Hydralazine HCl 10 mg 01/21/19 13:10 01/22/19 16:04 Apresoline IV 10 mg Q4HR PRN Administration BP >160/100 Insulin Human Lispro 0 unit 01/21/19 16:30 02/02/19 08:50 Humalog SUB-Q Not Given ACHS [facility] Protocol Morphine Sulfate 2 mg 01/24/19 03:52 01/25/19 18:43 Morphine IV 2 mg Q4H PRN Administration Pain, Moderate (6-10) Ondansetron HCl 4 mg 01/21/19 12:52 Zofran IV Q8H PRN Nausea And Vomiting Pantoprazole Sodium 40 mg 01/24/19 17:00 02/01/19 15:01 Protonix PO 40 mg QDAY FRANCK Administration Sodium Bicarbonate 1,300 mg 01/21/19 22:00 02/01/19 21:25 Sodium Bicarbonate PO 1,300 mg BID FRANCK Administration Sodium Chloride 10 ml 01/21/19 22:00 02/01/19 21:26 Sodium Chloride Flush Syringe 10 Ml IV 10 ml BID FRANCK Administration Sodium Chloride 10 ml 01/21/19 12:52 01/24/19 06:18 Sodium Chloride Flush Syringe 10 Ml IV 10 ml PRN PRN Administration LINE FLUSH Tramadol HCl 50 mg 01/21/19 12:52 02/01/19 21:29 Ultram PO 50 mg Q6HR PRN Administration Pain Nutrition/Malnutrition Assess - Dietary Evaluation Nutrition/Malnutrition Findings: Nutrition Notes Start: 01/22/19 14:39 Freq: Status: Active Protocol: Document 01/22/19 14:39 TAMEKA (Rec: 01/22/19 14:44 [facility] S1) Nutrition Notes Need for Assessment generated from: MD Order,Education Initial or Follow up Brief Note Current Diet Cardiac + 1500mL fluid restriction Subjective/Other Information RD consulted for diet education. BP was elevated this am (163/114). Pt very receptive to diet education. #1 Nutrition Diagnosis Food and nutrition-related knowledge deficit Etiology limited exposure to diet education As Evidenced by Signs and Symptoms pt with elevated BP and currently on fluid restriction Nutrition Intervention Teaching Recipient Patient Learning Readiness Good Teaching Methods Discussion,Handout Response to Teaching Verbalize understanding Education Handouts Provided Heart Failure Nutrition Therapy Barriers to Learning No Barriers RD phone number provided Yes Patient aware of follow up options Yes Goal #1 Adhere to low Na diet Anticipated Discharge Needs: Low Na diet Revisit per MD consult or patient Sign Off request:
[2019-02-02] MEDS: SODIUM BICARBONATE PO SCH ×2 (09:32→21:25)
[2019-02-02] MEDS: COREG PO SCH ×2 (09:33→21:24)
[2019-02-02] MEDS: PROTONIX PO SCH (09:33)
[2019-02-02] MEDS: BABY ASPIRIN PO SCH (09:33)
[2019-02-02] MEDS: SODIUM CHLORIDE FLUSH SYRINGE 10 ML IV SCH ×2 (09:34→21:25)
[2019-02-02] MEDS: HEPARIN SUB-Q SCH ×2 (09:37→21:25)
--- NOTE | 2019-02-02 09:41 | Progress Note ---
Subjective Principal diagnosis: Cardiomyopathy Interval history: Patient was seen today for follow-up on multiple renal related issues Events of this hospitalization noted Started on dialysis currently pending placement Dialysis tolerated well Currently pending dialysis facility Patient denies having any chest pain pressure or shortness of breath Vitals labs intake output medications were reviewed Social history: Reviewed Allergies: Reviewed Family history: Reviewed Physical examination HEENT: Oral mucosa moist no pallor or icterus Neck: Supple no JVD Chest: Clear to auscultation anteriorly Central venous catheter site unremarkable CVS: Regular rate and rhythm S1 and S2 heard Abdomen: Soft nontender no suprapubic masses no organomegaly appreciable Extremity: Dry skin less than 1+ peripheral edema Musculoskeletal: No joint effusion noted in knees and ankle Neurological: Alert awake Dermatology: No petechial rashes Psychiatry: No evidence of any agitation and aggression noted Assessment and plan; End-stage renal disease continue with hemodialysis treatment Monday Anemia in end-stage renal disease: To monitor and follow Congestive heart failure adequately counseled and educated about diet lifestyle changes patient also has cardiorenal syndrome Outpatient dialysis clinic currently pending From dialysis perspective his hemoglobin is better at 9.1, platelet count 253,000 Vitamin D level currently pending. Intact PTH is 351 normal last phosphorus was 4.5 hemoglobin A1c 6.7 Renal ultrasonogram showed evidence of simple cyst Pertinent lab findings were discussed with patient and patient does exhibit good understanding of renal issues. We'll continue to follow and make recommendation from renal standpoint Objective - Vital Signs Vital signs: Vital Signs - 12hr 02/02/19 02/02/19 02/02/19 00:01 05:27 09:30 Temperature 98.1 F 98.9 F Pulse Rate 83 79 Respiratory 18 20 Rate Blood Pressure 134/81 117/70 127/76 O2 Sat by Pulse 91 93 Oximetry 02/02/19 09:33 Temperature Pulse Rate 80 Respiratory Rate Blood Pressure 127/76 O2 Sat by Pulse Oximetry - Lab 02/02/19 04:51 02/02/19 04:51 Most recent lab results Calcium 8.6 mg/dL (8.4-10.2) 02/02/19 04:51 Phosphorus 4.50 mg/dL (2.5-4.5) 01/31/19 14:49 Magnesium 1.50 mg/dL (1.7-2.3) L 01/26/19 10:21 48.5 mg/dL (0.1-20.0) H 01/22/19 16:08 81 mmol/L 01/21/19 13:00 330 mg/dL (5-11.8) H 01/22/19 16:08 Medications & Allergies - Medications Allergies/Adverse Reactions: Allergies No Known Allergies Allergy (Verified 01/21/19 09:02) Home Medications: Home Medications Medication Instructions Recorded Confirmed Last Taken Type traMADol [Ultram] 50 mg PO Q6HR PRN #7 tablet 01/17/19 01/21/19 Unknown Rx AtorvaSTATin [Lipitor] 10 mg PO DAILY 01/21/19 01/21/19 Unknown History Aspirin [Aspirin BABY CHEW TAB] 81 mg PO QDAY #30 tab.chew 01/28/19 Unknown Rx Calcitriol [Rocaltrol] 1 mcg PO QDAY #30 capsule 01/28/19 Unknown Rx Calcium Carbonate [Tums 500MG CHEW] 1,000 mg PO TID #90 tablet 01/28/19 Unknown Rx Carvedilol [Coreg] 6.25 mg PO BID #60 tablet 01/28/19 Unknown Rx Ergocalciferol [Vitamin D2] 50,000 unit PO We #4 capsule 01/28/19 Unknown Rx Pantoprazole [Protonix TAB] 40 mg PO QDAY #30 tablet 01/28/19 Unknown Rx Sodium Bicarbonate 1,300 mg PO BID #60 tablet 01/28/19 Unknown Rx glipiZIDE [Glucotrol] 5 mg PO BID #60 tablet 01/28/19 Unknown Rx Active Medications: Generic Name Dose Route Start Last Admin Trade Name Freq PRN Reason Stop Dose Admin Acetaminophen 650 mg 01/21/19 12:52 Tylenol PO Q4H PRN Pain MILD(1-3)/Fever >100.5/MANE Aspirin 81 mg 01/24/19 17:00 02/02/19 09:33 Baby Aspirin PO 81 mg QDAY FRANCK Administration Atorvastatin Calcium 10 mg 01/22/19 10:00 02/02/19 09:33 Lipitor PO 10 mg DAILY FRANCK Administration Calcitriol 1 mcg 01/26/19 10:07 02/01/19 12:53 Rocaltrol PO 1 mcg QDAY FRANCK Administration Calcium Carbonate/Glycine 1,000 mg 01/27/19 09:00 02/02/19 08:49 Tums PO 1,000 mg TID FRANCK Administration Carvedilol 6.25 mg 01/26/19 22:00 02/02/19 09:33 Coreg PO 6.25 mg BID FRANCK Administration Dextrose 50 ml 01/21/19 13:10 D50w (25gm) Syringe IV PRN PRN Hypoglycemia Ergocalciferol 50,000 unit 01/23/19 21:00 01/30/19 21:41 Vitamin D2 PO 50,000 unit We FRANCK Administration Heparin Sodium (Porcine) 5,000 unit 01/29/19 10:00 02/02/19 09:37 Heparin SUB-Q 5,000 unit Q12HR FRANCK Administration Hydralazine HCl 10 mg 01/21/19 13:10 01/22/19 16:04 Apresoline IV 10 mg Q4HR PRN Administration BP >160/100 Insulin Human Lispro 0 unit 01/21/19 16:30 02/02/19 08:50 Humalog SUB-Q Not Given ACHS [facility] Protocol Morphine Sulfate 2 mg 01/24/19 03:52 01/25/19 18:43 Morphine IV 2 mg Q4H PRN Administration Pain, Moderate (6-10) Ondansetron HCl 4 mg 01/21/19 12:52 Zofran IV Q8H PRN Nausea And Vomiting Pantoprazole Sodium 40 mg 01/24/19 17:00 02/02/19 09:33 Protonix PO 40 mg QDAY FRANCK Administration Sodium Bicarbonate 1,300 mg 01/21/19 22:00 02/02/19 09:32 Sodium Bicarbonate PO 1,300 mg BID FRANCK Administration Sodium Chloride 10 ml 01/21/19 22:00 02/02/19 09:34 Sodium Chloride Flush Syringe 10 Ml IV 10 ml BID FRANCK Administration Sodium Chloride 10 ml 01/21/19 12:52 01/24/19 06:18 Sodium Chloride Flush Syringe 10 Ml IV 10 ml PRN PRN Administration LINE FLUSH Tramadol HCl 50 mg 01/21/19 12:52 02/01/19 21:29 Ultram PO 50 mg Q6HR PRN Administration Pain
[2019-02-02] MEDS: ROCALTROL PO SCH (15:31)
[2019-02-03] MEDS: TUMS PO SCH ×3 (08:38→21:16)
[2019-02-03] MEDS: HumaLOG SUB-Q SCH ×4 (08:46→22:00)
--- NOTE | 2019-02-03 09:40 | Progress Note ---
Assessment and Plan Assessment and plan: 63-year-old man admitted with shortness of breath and lower extremity edema. He presented to the emergency room last week with similar symptoms, but refused to stay in hospital and discharged himself AGAINST MEDICAL ADVICE. On this presentation, his symptoms worsened, chest x-ray in the emergency room revealed severe pulmonary edema with near whiteout of bilateral lung boudreaux,which is worse than previous CXR. In addition, there is marked cardiomegaly. In the ER there was severe renal failure with a creatinine of 7.6. The patient denies any history of cardiac or renal disease. admitted for further evaluation and management. he had repeqated dialysis and Nephrology has determined he will need rug dry room attendant dialysis. He is medically stable, awaiting rug dry room attendant dialysis arrangements. CHFrEF with acute exacerbation - 2d echo showed Ef ~15% -likely cardiorenal syndrome -strict I&O, daily weights, optimize meds, cardiology following, - volume mx per HD, cont on aspirin/statin - stress test showed no ischemia- outpt f/u [facility] with possible progression to end-stage renal disease mgt per nephrology, hold metformin Started on HD since 01/23 with permcath continue hemodialysis MWF per renal will need outpt HD setup Hypertension, cont BP meds and adjust as needed - Labetalol 20mg IV prn systolic >180 Hyperlipidemia, cont statin Diabetes mellitus type 2 Continue SSI, a1c 6.7 hypocalcemia, Hypocalcemia in the setting of probable chronic kidney disease and vitamin D deficiency vitamin D level is 7 - started replacement Also initiated calcitriol Left hip pain Left hip x ray neg Hyperparathyroidism Markedly elevated PTH consistent with chronic kidney disease and also vitamin D deficiency contiue calcitriol 0.5mcg daily. getting vitamin D replacement dvt ppx- heparin Family history of heart disease Disposition: d/c when outpt HD set up available History Interval history: left hip pain, improved no chest pain Hospitalist Physical - Physical exam Narrative exam: Gen: Not in acute distress, lying in bed,obese HEENT: Normocephalic, atraumatic Neck: supple, no JVD Heart: S1 and S2 reg, no murmurs, rubs or gallop Lungs: Clear, no crackles, no wheeze Abd: soft, non tender, non distended, normal BS Ext: No edema, no clubbing, no cyanosis, Neuro: Awake,alert, moves all ext, non focal - Constitutional Vitals: Temp Pulse Resp BP Pulse Ox 98.3 F 89 18 124/73 95 02/03/19 04:45 02/03/19 04:45 02/03/19 04:45 02/03/19 04:45 02/03/19 04:45 General appearance: Present: no acute distress, obese Results - Labs CBC & Chem 7: 02/02/19 04:51 02/02/19 04:51 Labs: Laboratory Last Values WBC 8.7 K/mm3 (4.5-11.0) 02/02/19 04:51 RBC 4.36 M/mm3 (3.65-5.03) 02/02/19 04:51 Hgb 9.1 gm/dl (11.8-15.2) L 02/02/19 04:51 Hct 29.5 % (35.5-45.6) L 02/02/19 04:51 MCV 68 fl (84-94) L 02/02/19 04:51 MCH 21 pg (28-32) L 02/02/19 04:51 MCHC 31 % (32-34) L 02/02/19 04:51 RDW 16.2 % (13.2-15.2) H 02/02/19 04:51 Plt Count 253 K/mm3 (140-440) 02/02/19 04:51 Lymph % (Auto) 43.3 % (13.4-35.0) H 01/31/19 03:58 Mcpherson % (Auto) 8.7 % (0.0-7.3) H 01/31/19 03:58 Eos % (Auto) 1.9 % (0.0-4.3) 01/31/19 03:58 Baso % (Auto) 1.2 % (0.0-1.8) 01/31/19 03:58 Lymph # Healthcare Social Worker 02/01/19 04:01 Mcpherson # 0.8 K/mm3 (0.0-0.8) 01/31/19 03:58 Eos # 0.2 K/mm3 (0.0-0.4) 01/31/19 03:58 Baso # 0.1 K/mm3 (0.0-0.1) 01/31/19 03:58 Add Manual Diff Complete 02/02/19 04:51 Total Counted 100 02/02/19 04:51 Seg Neutrophils % 44.9 % (40.0-70.0) 01/31/19 03:58 Seg Neuts % (Manual) 66.0 % (40.0-70.0) 02/02/19 04:51 0 % 02/02/19 04:51 23.0 % (13.4-35.0) 02/02/19 04:51 Reactive Lymphs % (Man) 0 % 02/02/19 04:51 8.0 % (0.0-7.3) H 02/02/19 04:51 3.0 % (0.0-4.3) 02/02/19 04:51 0 % (0.0-1.8) 02/02/19 04:51 0 % 02/02/19 04:51 0 % 02/02/19 04:51 0 % 02/02/19 04:51 0 % 02/02/19 04:51 Nucleated RBC % Not Reportable 02/02/19 04:51 Seg Neutrophils # 4.1 K/mm3 (1.8-7.7) 01/31/19 03:58 Seg Neutrophils # Man 5.7 K/mm3 (1.8-7.7) 02/02/19 04:51 Band Neutrophils # 0.0 K/mm3 02/02/19 04:51 2.0 K/mm3 (1.2-5.4) 02/02/19 04:51 Abs React Lymphs (Man) 0.0 K/mm3 02/02/19 04:51 0.7 K/mm3 (0.0-0.8) 02/02/19 04:51 0.3 K/mm3 (0.0-0.4) 02/02/19 04:51 0.0 K/mm3 (0.0-0.1) 02/02/19 04:51 0.0 K/mm3 02/02/19 04:51 0.0 K/mm3 02/02/19 04:51 0.0 K/mm3 02/02/19 04:51 Blast Cells # 0.0 K/mm3 02/02/19 04:51 WBC Morphology Not Reportable 02/02/19 04:51 Hypersegmented Neuts Not Reportable 02/02/19 04:51 Hyposegmented Neuts Not Reportable 02/02/19 04:51 Hypogranular Neuts Not Reportable 02/02/19 04:51 Not Reportable 02/02/19 04:51 Not Reportable 02/02/19 04:51 Not Reportable 02/02/19 04:51 Not Reportable 02/02/19 04:51 Not Reportable 02/02/19 04:51 Not Reportable 02/02/19 04:51 Consistent w auto 02/02/19 04:51 Not Reportable 02/02/19 04:51 Plt Clumps, EDTA Not Reportable 02/02/19 04:51 Not Reportable 02/02/19 04:51 Not Reportable 02/02/19 04:51 Not Reportable 02/02/19 04:51 Plt Morphology Comment Not Reportable 02/02/19 04:51 RBC Morphology Not Reportable 02/02/19 04:51 Dimorphic RBCs Not Reportable 02/02/19 04:51 Not Reportable 02/02/19 04:51 2+ 02/02/19 04:51 Not Reportable 02/02/19 04:51 Not Reportable 02/02/19 04:51 1+ 02/02/19 04:51 Not Reportable 02/02/19 04:51 Not Reportable 02/02/19 04:51 Not Reportable 02/02/19 04:51 Not Reportable 02/02/19 04:51 1+ 02/02/19 04:51 Not Reportable 02/02/19 04:51 Rare 02/02/19 04:51 Not Reportable 02/02/19 04:51 Not Reportable 02/02/19 04:51 Not Reportable 02/02/19 04:51 Not Reportable 02/02/19 04:51 Not Reportable 02/02/19 04:51 Not Reportable 02/02/19 04:51 Not Reportable 02/02/19 04:51 Acanthocytes (Spur) Not Reportable 02/02/19 04:51 Rouleaux Not Reportable 02/02/19 04:51 Not Reportable 02/02/19 04:51 Not Reportable 02/02/19 04:51 Not Reportable 02/02/19 04:51 Not Reportable 02/02/19 04:51 Hem Pathologist Commnt No 02/02/19 04:51 PT 16.4 Sec. (12.2-14.9) H 01/21/19 10:02 INR 1.36 (0.87-1.13) H 01/21/19 10:02 APTT 30.6 Sec. (24.2-36.6) 01/21/19 10:02 Sodium 135 mmol/L (137-145) L 02/02/19 04:51 Potassium 4.8 mmol/L (3.6-5.0) 02/02/19 04:51 Chloride 96.8 mmol/L (98-107) L 02/02/19 04:51 Carbon Dioxide 28 mmol/L (22-30) 02/02/19 04:51 15 mmol/L 02/02/19 04:51 BUN 36 mg/dL (9-20) H 02/02/19 04:51 5.3 mg/dL (0.8-1.5) H 02/02/19 04:51 Estimated GFR 13 ml/min 02/02/19 04:51 7 % 02/02/19 04:51 Glucose 144 mg/dL (75-100) H 02/02/19 04:51 POC Glucose 106 (70-105) H 02/03/19 07:21 6.7 % (4-6) H 01/22/19 09:19 Calcium 8.6 mg/dL (8.4-10.2) 02/02/19 04:51 Phosphorus 4.50 mg/dL (2.5-4.5) 01/31/19 14:49 Magnesium 1.50 mg/dL (1.7-2.3) L 01/26/19 10:21 0.30 mg/dL (0.1-1.2) 01/21/19 10:02 AST 77 units/L (5-40) H 01/21/19 10:02 ALT 62 units/L (7-56) H 01/21/19 10:02 101 units/L (35-129) 01/21/19 10:02 0.092 ng/mL (0.00-0.029) H 01/21/19 10:02 7.6 g/dL (6.3-8.2) 01/21/19 10:02 2.8 g/dL (3.9-5) L 01/21/19 10:02 0.6 % 01/21/19 10:02 <4 ng/mL 01/21/19 20:05 7 ng/mL 01/21/19 20:05 PTH Intact 351.1 pg/mL (15-65) H 01/31/19 14:49 Yellow (Yellow) 01/21/19 13:00 Clear (Clear) 01/21/19 13:00 5.0 (5.0-7.0) 01/21/19 13:00 Ur Specific [place]ascade 1.012 (1.003-1.030) 01/21/19 13:00 >500 mg/dL (Negative) 01/21/19 13:00 Neg mg/dL (Negative) 01/21/19 13:00 Neg mg/dL (Negative) 01/21/19 13:00 Sm (Negative) 01/21/19 13:00 Neg (Negative) 01/21/19 13:00 Neg (Negative) 01/21/19 13:00 < 2.0 mg/dL (<2.0) 01/21/19 13:00 Ur Leukocyte Esterase Neg (Negative) 01/21/19 13:00 9.0 /HPF (0.0-6.0) H 01/21/19 13:00 6.0 /HPF (0.0-6.0) 01/21/19 13:00 U Epithel Cells (Auto) < 1.0 /HPF (0-13.0) 01/21/19 13:00 1+ /HPF (Negative) 01/21/19 13:00 Few /HPF 01/21/19 13:00 48.5 mg/dL (0.1-20.0) H 01/22/19 16:08 58.4 mg/dL (0.1-34.0) H 01/22/19 16:08 Microalb/Creat Ratio 1204.1 ug/mg 01/22/19 16:08 81 mmol/L 01/21/19 13:00 330 mg/dL (5-11.8) H 01/22/19 16:08 Immunofix Electrophor see below 01/21/19 20:08 HOLLY Screen Negative (Negative) 01/21/19 20:07 Proteinase 3 (PR3) Ab <1.0 AI (<1.0) 01/21/19 20:01 Myeloperoxidase Ab <1.0 AI (<1.0) 01/21/19 20:01 107 mg/dL (82-185) 01/21/19 20:01 32 mg/dL (15-53) 01/21/19 20:01 Hepatitis A IgM Ab Non-reactive (NonReactive) 01/23/19 13:30 Hep Bs Antigen Non-reactive (Negative) 01/23/19 13:30 Hep B Core IgM Ab Non-reactive (NonReactive) 01/23/19 13:30 Reactive (NonReactive) A 01/23/19 13:30 Active Medications - Current Medications Current Medications: Generic Name Dose Route Start Last Admin Trade Name Freq PRN Reason Stop Dose Admin Acetaminophen 650 mg 01/21/19 12:52 Tylenol PO Q4H PRN Pain MILD(1-3)/Fever >100.5/MANE Aspirin 81 mg 01/24/19 17:00 02/02/19 09:33 Baby Aspirin PO 81 mg QDAY FRANCK Administration Atorvastatin Calcium 10 mg 01/22/19 10:00 02/02/19 09:33 Lipitor PO 10 mg DAILY FRANCK Administration Calcitriol 1 mcg 01/26/19 10:07 02/02/19 15:31 Rocaltrol PO 1 mcg QDAY FRANCK Administration Calcium Carbonate/Glycine 1,000 mg 01/27/19 09:00 02/03/19 08:38 Tums PO 1,000 mg TID FRANCK Administration Carvedilol 6.25 mg 01/26/19 22:00 02/02/19 21:24 Coreg PO 6.25 mg BID FRANCK Administration Dextrose 50 ml 01/21/19 13:10 D50w (25gm) Syringe IV PRN PRN Hypoglycemia Ergocalciferol 50,000 unit 01/23/19 21:00 01/30/19 21:41 Vitamin D2 PO 50,000 unit We FRANCK Administration Heparin Sodium (Porcine) 5,000 unit 01/29/19 10:00 02/02/19 21:25 Heparin SUB-Q 5,000 unit Q12HR FRANCK Administration Hydralazine HCl 10 mg 01/21/19 13:10 01/22/19 16:04 Apresoline IV 10 mg Q4HR PRN Administration BP >160/100 Insulin Human Lispro 0 unit 01/21/19 16:30 02/03/19 08:46 Humalog SUB-Q Not Given ACHS FRANCK Protocol Morphine Sulfate 2 mg 01/24/19 03:52 01/25/19 18:43 Morphine IV 2 mg Q4H PRN Administration Pain, Moderate (6-10) Ondansetron HCl 4 mg 01/21/19 12:52 Zofran IV Q8H PRN Nausea And Vomiting Pantoprazole Sodium 40 mg 01/24/19 17:00 02/02/19 09:33 Protonix PO 40 mg QDAY FRANCK Administration Sodium Bicarbonate 1,300 mg 01/21/19 22:00 02/02/19 21:25 Sodium Bicarbonate PO 1,300 mg BID FRANCK Administration Sodium Chloride 10 ml 01/21/19 22:00 02/02/19 21:25 Sodium Chloride Flush Syringe 10 Ml IV 10 ml BID FRANCK Administration Sodium Chloride 10 ml 01/21/19 12:52 01/24/19 06:18 Sodium Chloride Flush Syringe 10 Ml IV 10 ml PRN PRN Administration LINE FLUSH Tramadol HCl 50 mg 01/21/19 12:52 02/01/19 21:29 Ultram PO 50 mg Q6HR PRN Administration Pain Nutrition/Malnutrition Assess - Dietary Evaluation Nutrition/Malnutrition Findings: Nutrition Notes Start: 01/22/19 14:39 Freq: Status: Active Protocol: Document 01/22/19 14:39 TAMEKA (Rec: 01/22/19 14:44 TAMEKA [id number]) Nutrition Notes Need for Assessment generated from: MD Order,Education Initial or Follow up Brief Note Current Diet Cardiac + 1500mL fluid restriction Subjective/Other Information RD consulted for diet education. BP was elevated this am (163/114). Pt very receptive to diet education. #1 Nutrition Diagnosis Food and nutrition-related knowledge deficit Etiology limited exposure to diet education As Evidenced by Signs and Symptoms pt with elevated BP and currently on fluid restriction Nutrition Intervention Teaching Recipient Patient Learning Readiness Good Teaching Methods Discussion,Handout Response to Teaching Verbalize understanding Education Handouts Provided Heart Failure Nutrition Therapy Barriers to Learning No Barriers RD phone number provided Yes Patient aware of follow up options Yes Goal #1 Adhere to low Na diet Anticipated Discharge Needs: Low Na diet Revisit per MD consult or patient Sign Off request:
--- NOTE | 2019-02-03 09:43 | Progress Note ---
Subjective Principal diagnosis: Cardiomyopathy Interval history: Patient was seen today for follow-up on multiple renal related issues Currently on dialysis 3 times a week Monday Pending acceptance at the dialysis facility Patient denies having any chest pain pressure or shortness of breath Vitals labs intake output medications were reviewed Social history: Reviewed Allergies: Reviewed Family history: Reviewed Physical examination HEENT: Oral mucosa moist no pallor or icterus Neck: Supple no JVD Chest: Clear to auscultation anteriorly Central venous catheter site unremarkable CVS: Regular rate and rhythm S1 and S2 heard Abdomen: Soft nontender no suprapubic masses no organomegaly appreciable Extremity: Dry skin less than 1+ peripheral edema Musculoskeletal: No joint effusion noted in knees and ankle Neurological: Alert awake Dermatology: No petechial rashes Psychiatry: No evidence of any agitation and aggression noted Assessment and plan; End-stage renal disease continue with hemodialysis treatment Monday Needed hemodialysis, diet plan was discussed with patient advised fluid restriction patient was not careful Is currently pending placement at dialysis facility Periodically will need monitoring of his labs Anemia in end-stage renal disease: To monitor and follow Congestive heart failure adequately counseled and educated about diet lifestyle changes patient also has cardiorenal syndrome Outpatient dialysis clinic currently pending From dialysis perspective his hemoglobin is better at 9.1, platelet count 253,000 Vitamin D level currently pending. Intact PTH is 351 normal last phosphorus was 4.5 hemoglobin A1c 6.7 Renal ultrasonogram showed evidence of simple cyst Pertinent lab findings were discussed with patient and patient does exhibit good understanding of renal issues. We'll continue to follow and make recommendation from renal standpoint Objective - Vital Signs Vital signs: Vital Signs - 12hr 02/02/19 02/03/19 22:45 04:45 Temperature 98.5 F 98.3 F Pulse Rate 85 89 Respiratory 20 18 Rate Blood Pressure 131/71 124/73 O2 Sat by Pulse 93 95 Oximetry - Lab 02/02/19 04:51 02/02/19 04:51 Most recent lab results Calcium 8.6 mg/dL (8.4-10.2) 02/02/19 04:51 Phosphorus 4.50 mg/dL (2.5-4.5) 01/31/19 14:49 Magnesium 1.50 mg/dL (1.7-2.3) L 01/26/19 10:21 48.5 mg/dL (0.1-20.0) H 01/22/19 16:08 81 mmol/L 01/21/19 13:00 330 mg/dL (5-11.8) H 01/22/19 16:08 Medications & Allergies - Medications Allergies/Adverse Reactions: Allergies No Known Allergies Allergy (Verified 01/21/19 09:02) Home Medications: Home Medications Medication Instructions Recorded Confirmed Last Taken Type traMADol [Ultram] 50 mg PO Q6HR PRN #7 tablet 01/17/19 01/21/19 Unknown Rx AtorvaSTATin [Lipitor] 10 mg PO DAILY 01/21/19 01/21/19 Unknown History Aspirin [Aspirin BABY CHEW TAB] 81 mg PO QDAY #30 tab.chew 01/28/19 Unknown Rx Calcitriol [Rocaltrol] 1 mcg PO QDAY #30 capsule 01/28/19 Unknown Rx Calcium Carbonate [Tums 500MG CHEW] 1,000 mg PO TID #90 tablet 01/28/19 Unknown Rx Carvedilol [Coreg] 6.25 mg PO BID #60 tablet 01/28/19 Unknown Rx Ergocalciferol [Vitamin D2] 50,000 unit PO We #4 capsule 01/28/19 Unknown Rx Pantoprazole [Protonix TAB] 40 mg PO QDAY #30 tablet 01/28/19 Unknown Rx Sodium Bicarbonate 1,300 mg PO BID #60 tablet 01/28/19 Unknown Rx glipiZIDE [Glucotrol] 5 mg PO BID #60 tablet 01/28/19 Unknown Rx Active Medications: Generic Name Dose Route Start Last Admin Trade Name Freq PRN Reason Stop Dose Admin Acetaminophen 650 mg 01/21/19 12:52 Tylenol PO Q4H PRN Pain MILD(1-3)/Fever >100.5/MANE Aspirin 81 mg 01/24/19 17:00 02/02/19 09:33 Baby Aspirin PO 81 mg QDAY FRANCK Administration Atorvastatin Calcium 10 mg 01/22/19 10:00 02/02/19 09:33 Lipitor PO 10 mg DAILY FRANCK Administration Calcitriol 1 mcg 01/26/19 10:07 02/02/19 15:31 Rocaltrol PO 1 mcg QDAY FRANCK Administration Calcium Carbonate/Glycine 1,000 mg 01/27/19 09:00 02/03/19 08:38 Tums PO 1,000 mg TID FRANCK Administration Carvedilol 6.25 mg 01/26/19 22:00 02/02/19 21:24 Coreg PO 6.25 mg BID FRANCK Administration Dextrose 50 ml 01/21/19 13:10 D50w (25gm) Syringe IV PRN PRN Hypoglycemia Ergocalciferol 50,000 unit 01/23/19 21:00 01/30/19 21:41 Vitamin D2 PO 50,000 unit We RFANCK Administration Heparin Sodium (Porcine) 5,000 unit 01/29/19 10:00 02/02/19 21:25 Heparin SUB-Q 5,000 unit Q12HR FRANCK Administration Hydralazine HCl 10 mg 01/21/19 13:10 01/22/19 16:04 Apresoline IV 10 mg Q4HR PRN Administration BP >160/100 Insulin Human Lispro 0 unit 01/21/19 16:30 02/03/19 08:46 Humalog SUB-Q Not Given ACHS [facility] Protocol Morphine Sulfate 2 mg 01/24/19 03:52 01/25/19 18:43 Morphine IV 2 mg Q4H PRN Administration Pain, Moderate (6-10) Ondansetron HCl 4 mg 01/21/19 12:52 Zofran IV Q8H PRN Nausea And Vomiting Pantoprazole Sodium 40 mg 01/24/19 17:00 02/02/19 09:33 Protonix PO 40 mg QDAY FRANCK Administration Sodium Bicarbonate 1,300 mg 01/21/19 22:00 02/02/19 21:25 Sodium Bicarbonate PO 1,300 mg BID FRANCK Administration Sodium Chloride 10 ml 01/21/19 22:00 02/02/19 21:25 Sodium Chloride Flush Syringe 10 Ml IV 10 ml BID FRANCK Administration Sodium Chloride 10 ml 01/21/19 12:52 01/24/19 06:18 Sodium Chloride Flush Syringe 10 Ml IV 10 ml PRN PRN Administration LINE FLUSH Tramadol HCl 50 mg 01/21/19 12:52 02/01/19 21:29 Ultram PO 50 mg Q6HR PRN Administration Pain
[2019-02-03] MEDS: ROCALTROL PO SCH (10:11)
[2019-02-03] MEDS: BABY ASPIRIN PO SCH (10:15)
[2019-02-03] MEDS: PROTONIX PO SCH (10:15)
[2019-02-03] MEDS: SODIUM BICARBONATE PO SCH ×2 (10:15→21:55)
[2019-02-03] MEDS: COREG PO SCH ×2 (10:16→22:54)
[2019-02-03] MEDS: HEPARIN SUB-Q SCH ×2 (10:18→21:59)
[2019-02-03] MEDS: SODIUM CHLORIDE FLUSH SYRINGE 10 ML IV SCH ×2 (10:22→21:56)
--- NOTE | 2019-02-03 16:55 | Vascular Lab Report ---
Right upper extremity vascular Ultrasound HISTORY: Swelling and a palpable knot in the mid right forearm for the past 2 days. TECHNIQUE: Grayscale and color Doppler imaging performed. COMPARISON: None FINDINGS: No thrombus identified from the level of the internal jugular through the subclavian, axill katrina, brachial, basilic, radial, or ulnar veins. In the area of the palpable abnormality, there is a subcutaneous rounded structure measuring 8 mm in maximal dimension with no internal blood flow which may represent a sebaceous cyst. IMPRESSION: 1. Negative for DVT. 2. Probable sebaceous cyst in the subcutaneous tissues where the patient has a palpable abnormality i n the forearm. Signer Name: Berry Mccray MD Signed: 02/03/2019 4:51 PM Workstation Name: [id number]
[2019-02-03] MEDS: ULTRAM PO PRN (20:20)
[2019-02-04] MEDS: HumaLOG SUB-Q SCH ×3 (07:30→17:58)
[2019-02-04] MEDS: TUMS PO SCH ×2 (08:00→16:05)
--- NOTE | 2019-02-04 11:30 | Progress Note ---
Assessment and Plan Impression: * ESRD * Dilated cardiomyopathy * HTN * Hypocalcemia * cardiorenal syndrome * acute on chr sys HF Plan: * continue hd, qMWF * uf as tolerated * reduce bp meds due to hypertension * strict i/os * await hd unit placement * renal diet/fluid restriction * replete calcium, TUMS tid, continue vit d and calcitriol Subjective Date of service: 02/04/19 Principal diagnosis: Cardiomyopathy Interval history: resting well in bed today Objective - Exam Narrative Exam: General appearance: well-developed, well-nourished EENT: ATNC, PERRL, mucous membranes moist Neck: no JVD Respiratory: Present: Decreased Breath Sounds Cardiology: regular, S1S2 Gastrointestinal: normal, normoactive bowel sounds Integumentary: no rash Neurologic: alert and oriented x3, CN 3-12 intact Psychiatric: mood/affect appropriate - Vital Signs Vital signs: Vital Signs - 12hr 02/04/19 05:20 Temperature 99.0 F Pulse Rate 77 Respiratory 24 Rate Blood Pressure 117/76 O2 Sat by Pulse 92 Oximetry - Lab 02/02/19 04:51 02/02/19 04:51 Most recent lab results Calcium 8.6 mg/dL (8.4-10.2) 02/02/19 04:51 Phosphorus 4.50 mg/dL (2.5-4.5) 01/31/19 14:49 Magnesium 1.50 mg/dL (1.7-2.3) L 01/26/19 10:21 48.5 mg/dL (0.1-20.0) H 01/22/19 16:08 81 mmol/L 01/21/19 13:00 330 mg/dL (5-11.8) H 01/22/19 16:08 Medications & Allergies - Medications Allergies/Adverse Reactions: Allergies No Known Allergies Allergy (Verified 01/21/19 09:02) Home Medications: Home Medications Medication Instructions Recorded Confirmed Last Taken Type traMADol [Ultram] 50 mg PO Q6HR PRN #7 tablet 01/17/19 01/21/19 Unknown Rx AtorvaSTATin [Lipitor] 10 mg PO DAILY 01/21/19 01/21/19 Unknown History Aspirin [Aspirin BABY CHEW TAB] 81 mg PO QDAY #30 tab.chew 01/28/19 Unknown Rx Calcitriol [Rocaltrol] 1 mcg PO QDAY #30 capsule 01/28/19 Unknown Rx Calcium Carbonate [Tums 500MG CHEW] 1,000 mg PO TID #90 tablet 01/28/19 Unknown Rx Carvedilol [Coreg] 6.25 mg PO BID #60 tablet 01/28/19 Unknown Rx Ergocalciferol [Vitamin D2] 50,000 unit PO We #4 capsule 01/28/19 Unknown Rx Pantoprazole [Protonix TAB] 40 mg PO QDAY #30 tablet 01/28/19 Unknown Rx Sodium Bicarbonate 1,300 mg PO BID #60 tablet 01/28/19 Unknown Rx glipiZIDE [Glucotrol] 5 mg PO BID #60 tablet 01/28/19 Unknown Rx Active Medications: Generic Name Dose Route Start Last Admin Trade Name Freq PRN Reason Stop Dose Admin Acetaminophen 650 mg 01/21/19 12:52 Tylenol PO Q4H PRN Pain MILD(1-3)/Fever >100.5/MANE Aspirin 81 mg 01/24/19 17:00 02/03/19 10:15 Baby Aspirin PO 81 mg QDAY FRANCK Administration Atorvastatin Calcium 10 mg 01/22/19 10:00 02/03/19 10:15 Lipitor PO 10 mg DAILY FRANCK Administration Calcitriol 1 mcg 01/26/19 10:07 02/03/19 10:11 Rocaltrol PO 1 mcg QDAY FRANCK Administration Calcium Carbonate/Glycine 1,000 mg 01/27/19 09:00 02/03/19 21:16 Tums PO 1,000 mg TID FRANCK Administration Carvedilol 6.25 mg 01/26/19 22:00 02/03/19 22:54 Coreg PO 6.25 mg BID FRANCK Administration Dextrose 50 ml 01/21/19 13:10 D50w (25gm) Syringe IV PRN PRN Hypoglycemia Ergocalciferol 50,000 unit 01/23/19 21:00 01/30/19 21:41 Vitamin D2 PO 50,000 unit We FRANCK Administration Heparin Sodium (Porcine) 5,000 unit 01/29/19 10:00 02/03/19 21:59 Heparin SUB-Q 5,000 unit Q12HR FRANCK Administration Hydralazine HCl 10 mg 01/21/19 13:10 01/22/19 16:04 Apresoline IV 10 mg Q4HR PRN Administration BP >160/100 Insulin Human Lispro 0 unit 01/21/19 16:30 02/03/19 22:00 Humalog SUB-Q Not Given ACHS [facility] Protocol Morphine Sulfate 2 mg 01/24/19 03:52 01/25/19 18:43 Morphine IV 2 mg Q4H PRN Administration Pain, Moderate (6-10) Ondansetron HCl 4 mg 01/21/19 12:52 Zofran IV Q8H PRN Nausea And Vomiting Pantoprazole Sodium 40 mg 01/24/19 17:00 02/03/19 10:15 Protonix PO 40 mg QDAY FRANCK Administration Sodium Bicarbonate 1,300 mg 01/21/19 22:00 02/03/19 21:55 Sodium Bicarbonate PO 1,300 mg BID FRANCK Administration Sodium Chloride 10 ml 01/21/19 22:00 02/03/19 21:56 Sodium Chloride Flush Syringe 10 Ml IV 10 ml BID FRANCK Administration Sodium Chloride 10 ml 01/21/19 12:52 01/24/19 06:18 Sodium Chloride Flush Syringe 10 Ml IV 10 ml PRN PRN Administration LINE FLUSH Tramadol HCl 50 mg 01/21/19 12:52 02/03/19 20:20 Ultram PO 50 mg Q6HR PRN Administration Pain
--- NOTE | 2019-02-04 16:00 | Discharge Summary ---
Providers - Providers Date of Admission: 01/21/19 11:05 Date of discharge: 02/04/19 Attending physician: COMFORT HERNANDEZ 01/21/19 10:28 Consult to Physician [CONS] Urgent Comment: Consulting Provider: RELL BILLY Physician Instructions: Reason For Exam: cardiorenal syndrome 01/21/19 13:10 Consult to Dietitian/Nutrition [CONS] Routine Physician Instructions: Reason For Exam: Reason for Consult: Diet education [facility] Hospitalization Condition: Fair Hospital course: Patient is 63-year-old man admitted with shortness of breath and lower extremity edema. He presented to the emergency room last week with similar symptoms, but refused to stay in hospital and discharged himself AGAINST MEDICAL ADVICE. On this presentation, his symptoms worsened, chest x-ray in the emergency room revealed severe pulmonary edema with near whiteout of bilateral lung boudreaux,which is worse than previous CXR. In addition, there is marked cardiomegaly. In the ER there was severe renal failure with a creatinine of 7.6. The patient denies any history of cardiac or renal disease. He was admitted for further evaluation and management. He had a prolonged stay , had repeated dialysis and Nephrology determined he will need [facility] dialysis. Arrangements were made by case checker and he was discharged home 02/04/19 to continue hemodialysis as outpatient. Acute CHFrEF with acute exacerbation - 2d echo showed Ef ~15% -likely cardiorenal syndrome -strict I&O, daily weights, optimize meds, cardiology following, - volume mx per HD, cont on aspirin/statin - stress test showed no ischemia- outpt f/u [facility] with possible progression to end-stage renal disease mgt per nephrology, held metformin Started on HD since 01/23 with permcath continue hemodialysis MWF per renal Hypertension, cont BP meds and adjust as needed - Labetalol 20mg IV prn systolic >180 as impatient Hyperlipidemia, cont statin Diabetes mellitus type 2 Continue SSI, a1c 6.7 hypocalcemia, Hypocalcemia in the setting of probable chronic kidney disease and vitamin D deficiency vitamin D level is 7 - started replacement Also initiated calcitriol Left hip pain Left hip x ray neg Hyperparathyroidism Markedly elevated PTH consistent with chronic kidney disease and also vitamin D deficiency contiue calcitriol 0.5mcg daily. getting vitamin D replacement Total time spent on discharge, 42 mins Disposition: DC-01 TO HOME OR SELFCARE - Discharge Diagnoses (1) Acute systolic (congestive) heart failure Status: Acute (2) Obesity (BMI 30-39.9) Status: Acute (3) Acute on chronic renal failure Status: Acute (4) Cardiorenal syndrome with renal failure Status: Acute (5) Hyperparathyroidism due to renal insufficiency Status: Acute (6) HTN (hypertension) Status: Chronic (7) Hyperlipidemia Status: Chronic (8) Diabetes mellitus type 2 in obese Status: Chronic (9) Hyperparathyroidism Status: Acute (10) ESRD (end stage renal disease) on dialysis Status: Acute Core Measure Documentation - Palliative Care Palliative Care/ Comfort Measures: Not Applicable - Core Measures Any of the following diagnoses?: heart failure - Heart Failure Discharge Requirements DENISSE/ARB for LVSD if EF <40%: No Reason for no DENISSE/ARB: Renal impairment Beta jewels at discharge: Yes Exam - Constitutional Vitals: Temp Pulse Resp BP Pulse Ox 99.0 F 77 24 117/76 92 02/04/19 05:20 02/04/19 05:20 02/04/19 05:20 02/04/19 05:20 02/04/19 05:20 Plan Activity: advance as tolerated Diet: low fat, low cholesterol, low salt, diabetic Additional Instructions: 1.Follow up with PCP or [facility] in 1 week. 2.Follow up with [facility] in 1 week. 3.Dialysis -W- as arranged. 4.Follow up sebaceous cyst right forearm with PCP in 1 week. Follow up with: BRADLY ARREDONDO MD [Primary Care Provider] - 3-5 Days Prescriptions: Aspirin [Aspirin BABY CHEW TAB] 81 mg PO QDAY #30 tab.chew Carvedilol [Coreg] 6.25 mg PO BID #60 tablet glipiZIDE [Glucotrol] 5 mg PO QDAY #30 tablet Pantoprazole [Protonix TAB] 40 mg PO QDAY #30 tablet Calcitriol [Rocaltrol] 1 mcg PO QDAY #30 capsule Calcium Carbonate [Tums 500MG CHEW] 1,000 mg PO TID #90 tablet
[2019-02-04] MEDS: PROTONIX PO SCH (16:05)
[2019-02-04] MEDS: BABY ASPIRIN PO SCH (16:05)
[2019-02-04] MEDS: SODIUM BICARBONATE PO SCH (16:06)
[2019-02-04] MEDS: COREG PO SCH (16:06)
[2019-02-04] MEDS: ROCALTROL PO SCH (16:06)
[2019-02-04] MEDS: HEPARIN SUB-Q SCH (16:07)
[2019-02-04] MEDS: SODIUM CHLORIDE FLUSH SYRINGE 10 ML IV SCH (16:08)
[2019-02-04 16:33] VITALS: BP 161/92
[2019-02-04] MEDS ORDERED: NACL 0.9 (PRIMING MACHINE ONLY DIALYSIS) MC ONE (19:07)
== END 2019-02-04 18:36 | disposition home or self-care (01) | DRG 673 ==
LOC: ED 08:51 → 4A 11:05 → 3A 02-01 18:57
PROVIDERS: ADMIT Internal Medicine; ATTEND Internal Medicine
PROC: 0JH63XZ Insertion of Tunneled Vascular Access Device into Chest Subcutaneous Tissue and Fascia, Percutaneous Approach (ICD-10-PCS; principal; 2019-01-23)
PROC: 02HV33Z Insertion of Infusion Device into Superior Vena Cava, Percutaneous Approach (ICD-10-PCS; 2019-01-23)
PROC: B5181ZA Fluoroscopy of Superior Vena Cava using Low Osmolar Contrast, Guidance (ICD-10-PCS; 2019-01-23)
PROC: B548ZZA Ultrasonography of Superior Vena Cava, Guidance (ICD-10-PCS; 2019-01-23)
PROC: 5A1D70Z Performance of Urinary Filtration, Intermittent, Less than 6 Hours Per Day (ICD-10-PCS; 2019-01-23)
PROC: 5A1D70Z Performance of Urinary Filtration, Intermittent, Less than 6 Hours Per Day (ICD-10-PCS; 2019-01-25)
PROC: 5A1D70Z Performance of Urinary Filtration, Intermittent, Less than 6 Hours Per Day (ICD-10-PCS; 2019-01-28)
PROC: 5A1D70Z Performance of Urinary Filtration, Intermittent, Less than 6 Hours Per Day (ICD-10-PCS; 2019-01-30)
PROC: 5A1D70Z Performance of Urinary Filtration, Intermittent, Less than 6 Hours Per Day (ICD-10-PCS; 2019-02-01)
PROC: 5A1D70Z Performance of Urinary Filtration, Intermittent, Less than 6 Hours Per Day (ICD-10-PCS; 2019-02-04)
DX: N17.9 Acute kidney failure, unspecified (principal); I50.23 Acute on chronic systolic (congestive) heart failure; I13.2 Hypertensive heart and chronic kidney disease with heart failure and with stage 5 chronic kidney disease, or end stage renal disease; I42.0 Dilated cardiomyopathy; N18.6 End stage renal disease; N25.81 Secondary hyperparathyroidism of renal origin; E78.5 Hyperlipidemia, unspecified; E11.22 Type 2 diabetes mellitus with diabetic chronic kidney disease; D63.1 Anemia in chronic kidney disease; E87.70 Fluid overload, unspecified; E83.51 Hypocalcemia; Z79.84 Long term (current) use of oral hypoglycemic drugs; Z91.19 Patient's noncompliance with other medical treatment and regimen
CPT/HCPCS: 36415; 36558; 71045; 76770; 76937; 77001; 78452; 80048; 80053; 80074; 81001; 82043; 82306; 82570; 82962; 83036; 83520; 83735; 83970; 84100; 84156; 84300; 84484; 85007; 85025; 85610; 85730; 86021; 86038; 86160; 86334; 87086; 93005; 93010; 93017; 93306; 93970; G0378; A9270-GY; A9502; C1750; J0360; J0610; J0690; J1644; J1815; J1940; J2250; J2270; J2785; J3010; J3475; J7030; J7040

== ENCOUNTER 2019-07-19 16:59 | Emergency (ER) | payer SELFPAY ==
--- NOTE | 2019-07-19 19:10 | Event Note ---
ED Screening Note Date of service: 07/19/19 Time: 19:08 ED Screening Note: This is a 64 y.o. M. that presents to the ER to have permacatheter replaced. Patient states he went to dialysis today and sent to ER because they could only pull half of the fluid off. Catheter is on right chest. This initial assessment/diagnostic orders/clinical plan/treatment(s) is/are subject to change based on patients health status, clinical progression and re- assessment by fellow clinical providers in the ED. Further treatment and workup at subsequent clinical providers discretion. Patient/guardian urged not to elope from the ED as their condition may be serious if not clinically assessed and managed. Initial orders include: labs
[2019-07-19 19:12] VITALS: BP 154/94
[2019-07-19 20:08] LABS: Basophils # (Auto) 0.1 K/mm3 (0.0-0.1); Basophils % (Auto) 1.6 % (0.0-1.8); Eosinophils # (Auto) 0.2 K/mm3 (0.0-0.4); Eosinophils % (Auto) 2.6 % (0.0-4.3); Lymphocytes # (Auto) 3.8 K/mm3 (1.2-5.4); Lymphocytes % (Auto) 41.2 % (13.4-35.0); Mean Corpuscular HGB Conc 31 % (32-34); Mean Corpuscular Volume 73 fl (84-94); Monocytes # (Auto) 0.8 K/mm3 (0.0-0.8); Monocytes % (Auto) 8.3 % (0.0-7.3); Platelet Count 290 K/mm3 (140-440); Red Blood Count 5.77 M/mm3 (3.65-5.03)
[2019-07-19 20:20] LABS: INR 1.07 (0.87-1.13)
[2019-07-19 20:21] LABS: Partial Thromboplastin Time 33.2 Sec. (24.2-36.6)
[2019-07-19 20:22] LABS: Hematocrit 42.2 % (35.5-45.6)
--- NOTE | 2019-07-19 23:38 | Emergency Department Report ---
ED General Adult HPI - General Chief complaint: Medical Clearance Stated complaint: RT SIDE CATHETER CHANGE Time Seen by Provider: 07/19/19 19:08 Source: patient Mode of arrival: Ambulatory Limitations: No Limitations - History of Present Illness Initial comments: Patient is 62-year-old mellitus emergency room for malfunctioning dialysis catheter. Patient has a right chest permacath. Patient denies complaints. Patient states she was sent here by dialysis today to be evaluated for his catheter be changed. Patient states been able to have dialysis but the flow is slowing down. Patient states he goes Monday and had dialysis today. pt states his flow has slowly been decreasing over the last 4 weeks. -: Sudden Consistency: constant Improves with: none Worsens with: none Associated Symptoms: denies other symptoms Treatments Prior to Arrival: none - Related Data Home Medications Medication Instructions Recorded Confirmed Last Taken AtorvaSTATin 10 mg PO DAILY 01/21/19 01/21/19 Unknown Previous Rx's Medication Instructions Recorded Last Taken Type traMADoL [Ultram 50 MG tab] 50 mg PO Q6HR PRN #7 tablet 01/17/19 Unknown Rx Aspirin [Aspirin BABY CHEW TAB] 81 mg PO QDAY #30 tab.chew 01/28/19 Unknown Rx Calcium Carbonate [Tums 500MG CHEW] 1,000 mg PO TID #90 tablet 01/28/19 Unknown Rx Pantoprazole [Protonix TAB] 40 mg PO QDAY #30 tablet 01/28/19 Unknown Rx calcitrioL [Rocaltrol] 1 mcg PO QDAY #30 capsule 01/28/19 Unknown Rx carvediloL [Coreg] 6.25 mg PO BID #60 tablet 01/28/19 Unknown Rx glipiZIDE [Glucotrol] 5 mg PO QDAY #30 tablet 02/04/19 Unknown Rx Allergies Allergy/AdvReac Type Severity Reaction Status Date / Time No Known Allergies Allergy Verified 07/19/19 17:06 ED Review of Systems ROS: Stated complaint: RT SIDE CATHETER CHANGE Other details as noted in HPI Constitutional: denies: chills, fever Eyes: denies: eye pain, eye discharge, vision change ENT: denies: ear pain, throat pain Respiratory: denies: cough, shortness of breath, wheezing Cardiovascular: denies: chest pain, palpitations Endocrine: no symptoms reported Gastrointestinal: denies: abdominal pain, nausea, diarrhea Genitourinary: denies: urgency, dysuria Musculoskeletal: denies: back pain, joint swelling, arthralgia Skin: denies: rash, lesions Neurological: denies: headache, weakness, paresthesias Psychiatric: denies: anxiety, depression Hematological/Lymphatic: denies: easy bleeding, easy bruising ED Past Medical Hx - Past Medical History Previous Medical History?: Yes Hx Hypertension: Yes Hx Congestive Heart Failure: No Hx Diabetes: Yes Hx Asthma: No Hx COPD: No Hx HIV: No - Social History Smoking Status: Never Smoker Substance Use Type: None - Medications Home Medications: Home Medications Medication Instructions Recorded Confirmed Last Taken Type traMADoL [Ultram 50 MG tab] 50 mg PO Q6HR PRN #7 tablet 01/17/19 01/21/19 Unknown Rx AtorvaSTATin 10 mg PO DAILY 01/21/19 01/21/19 Unknown History Aspirin [Aspirin BABY CHEW TAB] 81 mg PO QDAY #30 tab.chew 01/28/19 Unknown Rx Calcium Carbonate [Tums 500MG CHEW] 1,000 mg PO TID #90 tablet 01/28/19 Unknown Rx Pantoprazole [Protonix TAB] 40 mg PO QDAY #30 tablet 01/28/19 Unknown Rx calcitrioL [Rocaltrol] 1 mcg PO QDAY #30 capsule 01/28/19 Unknown Rx carvediloL [Coreg] 6.25 mg PO BID #60 tablet 01/28/19 Unknown Rx glipiZIDE [Glucotrol] 5 mg PO QDAY #30 tablet 02/04/19 Unknown Rx ED Physical Exam - General Limitations: No Limitations General appearance: alert, in no apparent distress - Head Head exam: Present: atraumatic, normocephalic - Eye Eye exam: Present: normal appearance - ENT ENT exam: Present: mucous membranes moist - Neck Neck exam: Present: normal inspection - Respiratory Respiratory exam: Present: normal lung sounds bilaterally. Absent: respiratory distress - Cardiovascular Cardiovascular Exam: Present: regular rate, normal rhythm. Absent: systolic murmur, diastolic murmur, rubs, gallop - GI/Abdominal GI/Abdominal exam: Present: soft, normal bowel sounds - Rectal Rectal exam: Present: deferred - Extremities Exam Extremities exam: Present: normal inspection - Back Exam Back exam: Present: normal inspection - Neurological Exam Neurological exam: Present: alert, oriented X3 - Psychiatric Psychiatric exam: Present: normal affect, normal mood - Skin Skin exam: Present: warm, dry, intact, normal color. Absent: rash ED Course Vital Signs 07/19/19 19:09 Temperature 97.5 F L Pulse Rate 81 Respiratory 20 Rate Blood Pressure 154/94 O2 Sat by Pulse 96 Oximetry - Reevaluation(s) Reevaluation #1: I discussed clinical findings and plan of care with patient. Patient agrees with plan of care. Patient stable for discharge. Patient does not require admission into the hospital. Patient to follow-up with a vascular surgeon as an outpatient to have his vascular cath change. Patient given discharge instructions. Patient voiced understanding of discharge instructions. 07/19/19 23:42 - Consultations Consultation #1: I discussed case patient's situation with Dr. Dee, vascular surgery. Dr. Dee states the patient stable for discharge and follow-up as an outpatient and the access Center. 07/19/19 23:57 ED Medical Decision Making - Lab Data Result diagrams: 07/19/19 19:27 - Medical Decision Making Patient is a 62-year-old male that was referred to the emergency room for management of his low flow in his permacath. Patient is still able to have dialysis but the flow is slow. Patient does not have an emergent medical condition. Patient can be discharged home and follow-up with vascular surgery as an outpatient. Patient given vascular surgeries information. Patient does not require admission to manage this. - Differential Diagnosis malfunctioning vascular access. Critical care attestation.: If time is entered above; I have spent that time in minutes in the direct care of this critically ill patient, excluding procedure time. ED Disposition Clinical Impression: ESRD (end stage renal disease) on dialysis Malfunction of arteriovenous dialysis fistula Qualifiers: Encounter type: initial encounter Qualified Code(s): T82.590A - Other mechanical complication of surgically created arteriovenous fistula, initial encounter Disposition: DC-01 TO HOME OR SELFCARE Is pt being admited?: No Does the pt Need Aspirin: No Condition: Stable Instructions: Chronic Kidney Disease (ED) Additional Instructions: Patient to follow up with primary care in 2-3 days. Patient to follow-up with vascular surgery as soon as possible. Patient to return to ER condition worsens or changes or new symptoms arise. Patient to see a country printer within 2 days. Referrals: THANH KRAMER MD [Staff Physician] - 2-3 Days [facility] BRADLY ONTIVEROS MD [Primary Care Provider] - 2-3 Days OBNITA DEE MD [Staff Physician] - 2-3 Days Time of Disposition: 23:44
== END 2019-07-20 01:00 | disposition home or self-care (01) ==
LOC: ED 16:59
DX: T82.590A Other mechanical complication of surgically created arteriovenous fistula, initial encounter (principal); I12.0 Hypertensive chronic kidney disease with stage 5 chronic kidney disease or end stage renal disease; N18.6 End stage renal disease; Z99.2 Dependence on renal dialysis; Y92.89 Other specified places as the place of occurrence of the external cause
CPT/HCPCS: 36415; 85025; 85610; 85730; 99283